=== PATIENT | female | born 1950 | race African-American/Black ===

== ENCOUNTER 2020-08-11 20:29 | Inpatient (IN) | payer MEDICARE, MEDICAID, SELFPAY ==
[2020-08-11] VITALS (14 sets, daily range): BP systolic 92–123; BP diastolic 55–71; PULSE 90–95; RESP 11–20; TEMP 37.1; O2SAT 95–100
--- NOTE | ~2020-08-11 | CT_ITS ---
EXAMINATION: CT brain wo con EXAM DATE: 08/11/2020 21:27 INDICATION: Altered mental status. Fever. TECHNIQUE: Spiral CT of the head was performed without contrast. Axial, coronal and sagittal images were reviewed. The dose-length product (DLP) for this examination was 605.33 mGy-cm. The exposure w as tailored according to patient size, and iterative reconstruction (ASIR) was used as additional dos e reduction technique. There is no prior study for comparison. FINDINGS: There is subcentimeter right parieto-occipital infarction, age indeterminate. Mild to moder ate microangiopathy and cerebral atrophy. No obstructive hydrocephalus or extra-axial collections. No evidence of brain mass. Posterior fossa unremarkable. Left-sided cataract surgery. Moderate amount o f left sphenoid opacity, mild in the ethmoid sinuses. IMPRESSION: 1. Small age-indeterminate left parieto-occipital lobe infarction. 2. Microangiopathy and cerebral atrophy. 3. Sphenoid and ethmoid sinus opacity. Reviewed, dictated and finalized at location A. EDITOR
--- NOTE | ~2020-08-11 | XR_ITS ---
EXAMINATION: XR chest 1V portable DATE: 08/22/2020 05:40 INDICATION: Pneumonia. TECHNIQUE: A single frontal view of the chest was obtained. COMPARISON: Chest single view 08/11/2020, CT abdomen and pelvis 08/11/2020 FINDINGS: There is a diffuse interstitial pattern in the lungs. There are airspace opacities in the l ower lung zones. No pleural effusion or pneumothorax. Cardiomegaly is noted. IMPRESSION: 1. Worsened diffuse lung disease, consistent with pulmonary edema versus pneumonia. 2. Cardiomegaly. Reviewed, dictated and finalized at location A. AL MEASUREMENTS TEACHER IMPRESSION: 1. Worsened diffuse lung disease, consistent with pulmonary edema versus pneumo arthur. 2. Cardiomegaly.
--- NOTE | ~2020-08-11 | XR_ITS ---
XR abdomen/kub 1V DATE: 08/15/2020 12:39 INDICATION: Abdominal distention TECHNIQUE: Portable supine AP view on August 15, 2020 at 1234 hours COMPARISON: August 11, 2020 CT abdomen pelvis FINDINGS: Gastrostomy tube overlies the mid upper abdomen. Nonspecific bowel gas pattern without evidence of obstruction. The psoas shadows are intact. No visceromegaly is evident. Included skeletal structures are unremarkable. IMPRESSION: Gastrostomy tube Nonspecific abdomen Reviewed, dictated and finalized at Location A. Reviewed, dictated and finalized at location A. S ENGINEER
--- NOTE | ~2020-08-11 | US_ITS ---
EXAMINATION: US renal BI DATE: 08/23/2020 10:21 INDICATION: Segment in urine. TECHNIQUE: Multiple ultrasound grayscale images of the kidneys were obtained. COMPARISON: None. FINDINGS: The right kidney measures 12.8 x 5.2 cm. The left kidney measures 10.0 x 5.4 x 5.2 cm. The kidneys de monstrate normal parenchymal echogenicity. There is mild right hydronephrosis. The bladder is decompr essed by a Dorman catheter. There are low level echoes in the urine in the bladder correlating with th e abnormal urinalysis. IMPRESSION: 1. Mild right hydronephrosis. 2. Low level echoes in the urine in the bladder correlating with the abnormal urinalysis. Reviewed, dictated and finalized at location A. STARTER IMPRESSION: 1. Mild right hydronephrosis. 2. Low level echoes in the urine in the bladder correlating with the abnormal u rinalysis.
--- NOTE | ~2020-08-11 | XR_ITS ---
EXAMINATION: XR chest 1V EXAM DATE: 08/11/2020 21:36 INDICATION: Transient alteration of awareness. TECHNIQUE: Portable AP frontal chest x-ray was obtained. There is no prior study for comparison. FINDINGS: Rather extensive left lower lobe airspace disease which is ill-defined, small amount of rig ht basilar airspace disease. Could be pneumonia, COVID 19, edema. Please clinically correlate. Mild c ardiomegaly. No pneumothorax pleural effusion. There is aortic arteriosclerosis. There are bony degenerative candelaria es. IMPRESSION: Bibasilar, left greater than right infection or edema. Reviewed, dictated and finalized at location A. R MAN
--- NOTE | ~2020-08-11 | US_ITS ---
EXAMINATION: US right upper quadrant EXAM DATE: 08/23/2020 10:22 INDICATION: Elevated liver function tests. TECHNIQUE: Multiple grayscale and Doppler images of the abdomen right upper quadrant were obtained (b y a technologist who performed the scan) and subsequently reviewed. Correlation is made to CT abdomen 08/11/2020. FINDINGS: The pancreatic head and body are normal in appearance. The pancreatic tail is not visualized. The l iver has normal echogenicity and contour. There are no focal liver lesions identified. There is no evidence of intrahepatic biliary duct dilation. Portal venous flow was seen in the hepatopedal, nor mal direction and has normal Doppler waveform. No right-sided hydronephrosis. Common bile duct measures 4 mm, which is normal. Gallbladder wall is mildly thickened at 3.4 mm, coe alexander gallbladder is only minimally distended, could be due to under distention. No cholelithiasis, per icholecystic fluid. IMPRESSION: 1. Mild gallbladder wall thickening most likely from underdistention. 2. Unremarkable liver. Reviewed, dictated and finalized at location A. ENT SEWING MACHINE OPERATOR
--- NOTE | ~2020-08-11 | CT_ITS ---
EXAMINATION: CT abdomen pelvis w con EXAM DATE: 08/11/2020 22:46 INDICATION: Abdominal pain. Elevated liver enzymes. TECHNIQUE: Spiral CT of the abdomen and pelvis was performed following intravenous injection of 100 m L Omnipaque 350. Axial, coronal and sagittal images were reviewed. The dose-length product (DLP) fo r this examination was 768.71 mGy-cm. The exposure was tailored according to patient size (auto mA e xposure control), and iterative reconstruction (ASIR) was used as additional dose reduction technique . There is no prior study for comparison. FINDINGS: Patchy bibasilar airspace disease, consistent with pneumonia. There is cardiomegaly. The l iver, spleen, adrenal glands and pancreas are unremarkable. Gallbladder is unremarkable. No biliary obstruction. Portal and splenic veins are patent. Kidneys enhance symmetrically. There is no hydr onephrosis. The uterus is unremarkable. There is a Dorman catheter in the bladder. There is diffus e bladder wall thickening with adjacent fat stranding, gas in the bladder. Cystitis, probably acute. There is no retroperitoneal or pelvic lymphadenopathy. There is moderate scattered arterioscleroti c disease. The appendix is normal. There is a gastrostomy tube. Large amount of liquid colonic stool and gas, correlate for diarrhea. No free intraperitoneal gas. There is deep sacral decubitus ulcer, sacrum appears to be exposed at the ulceration site, but no oss eous erosion is identified. Mild lumbar levoscoliosis. There are no osteoblastic or osteolytic lesion s identified. Generalized body wall fat stranding. IMPRESSION: 1. Moderate amount of bibasilar multifocal pneumonia. 2. Large amount of colonic diarrhea and gas. 3. Cystitis, probably acute. 4. Large sacral decubitus ulcer. Reviewed, dictated and finalized at location A. ER SUPERVISOR
--- NOTE | ~2020-08-11 | XR_ITS ---
EXAMINATION: XR abdomen obstructive series EXAM DATE: 08/22/2020 13:27 INDICATION: Abdominal pain. TECHNIQUE: Frontal projection(s) of the abdomen for interpretation. Comparison is made to prior exami nation from 08/15/2019. Correlation was made with CT abdomen 08/11/2020. FINDINGS: There is a gastrostomy tube. Moderate to large amount of colonic stool and gas. No dilated small bowel. Patchy ill-defined left basilar airspace disease, patient had multifocal pneumonia, cor relating with prior CT. No small bowel dilation. There is no organomegaly. There are mild bony degene rative changes. IMPRESSION: 1. Moderate to large amount of colonic stool and gas. 2. Left basilar predominant airspace disease probably pneumonia. Reviewed, dictated and finalized at location A. TRONIC HEALTH RECORDS SPECIALIST
--- NOTE | 2020-08-11 20:44 | ECG_ITS ---
Measurements Intervals [place] Rate: 92 P: 61 IN: 134 QRS: -45 QRSD: 103 T: 76 QT: 377 QTc: 467 Interpretive Statements SINUS RHYTHM LEFT ANTERIOR FASCICULAR BLOCK BASELINE WANDER- I, II, III, AVL, AVF ABNORMAL ECG Electronically Signed On 08-12-2020 7:57:35 MERCHANDISE PICKUP/RECEIVING ASSOCIATE by Misael Vernon D.O.
[2020-08-11 21:06] LABS: Alveolar/Arterial O2 Gradient 254.7 mmHg; Base Excess ABG 0.2 mEq/l (+/-2.0); Device NASAL CANNULA; Fractional Inspired Oxygen 53 %; HCO3 ABG 25.7 mEq/l (22.0-26.0); Oxygen Content ABG 11.5 %vol (16.0-22.0); Oxyhemoglobin 91.1 % THb (90.0-100.0); PCO2 ABG 45.7 mmHg (35.0-45.0); PO2 ABG 72.1 mmHg (80.0-100.0); PO2 FiO2 Ratio Arterial Blood 1.36 %; Site Drawn RIGHT BRACHIAL; Total Hemoglobin 8.9 g/dL (12.0-18.0); pH ABG 7.368 (7.350-7.450)
[2020-08-11 21:10] LABS: Basophils Percent Auto 0.1 % (0.2-1.2); Hematocrit 31.1 % (37.0-47.0); Hemoglobin 8.4 g/dL (12.0-15.0); Lymphocytes Absolute Auto 3.16 K/mm3 (0.9-3.2); Lymphocytes Percent Auto 21.5 % (18.3-44.2); Mean Corpuscular Hemoglobin 25.5 pg (26-34); Mean Corpuscular Volume 94.2 fl (80-100); Mean Platelet Volume 11.4 fl (7.4-10.4); Monocytes Absolute Auto 1.5 K/mm3 (0.1-0.6); Monocytes Percent Auto 9.9 % (2.6-8.5); Neutrophils Absolute Auto 9.8 K/mm3 (1.3-6.7); Neutrophils Percent Auto 66.5 % (45.5-73.1); Nucleated Red Blood Cells Absolute Auto 0.1 K/mm3 (0.0-0.012); Nucleated Red Blood Cells Perc 0.5 % (0.0-0.2); Platelet Count Result 379 k/mm3 (150-375); Red Cell Distribution Width 21.7 % (11.5-14.5); White Blood Count 14.7 K/mm3 (4.5-10.0)
[2020-08-11] MEDS: SODIUM CHLORIDE 0.9% IV 1,000 ML 999 ML IV CONT ×2 (21:17→22:11)
[2020-08-11 21:19] LABS: INR 1.5; Prothrombin Time 18.4 Seconds (11.1-14.7)
[2020-08-11 21:20] LABS: Partial Thromboplastin Time 27.2 SECONDS (22.3-36.8)
[2020-08-11 21:28] LABS: Alanine Aminotransferase 292 U/L (4-35); Alkaline Phosphatase 402 U/L (38-126); Anion Gap 2 mmol/L (8-16); Aspartate Amino Transferase 527 U/L (14-36); Bilirubin,Total 0.5 mg/dL (0.2-1.3); Blood Urea Nitrogen 75 mg/dL (7-17); CRP 4.5 mg/dL (<1.0); Calcium 8.4 mg/dL (8.4-10.2); Carbon Dioxide 33 mmol/L (22-30); Chloride 117 mmol/L (98-107); Estimated Glomerular Filt Rate 45; Lipase 167 U/L (23-300); Potassium 5.1 mmol/L (3.4-5.0); Sodium 152 mmol/L (137-145)
[2020-08-11 21:29] LABS: Anisocytosis 2+ (NORMAL); Hypochromasia 1+ (NORMAL)
[2020-08-11 21:33] LABS: Troponin I 0.016 ng/mL (0.000-0.034)
[2020-08-11 21:34] LABS: Glucose 876 mg/dL (65-105)
[2020-08-11 22:09] LABS: Add Urine Microscopic? YES; Appearance Urine Turbid (Clear); Bacteria Urine 1+ /hpf; Bilirubin Urine Negative (Negative); Blood Urine 2+ (Negative); Color Urine Yellow (Yellow); Glucose Urine UA 3+ mg/dL (Negative); Ketones Urine Negative (Negative); Leukocyte Esterase Ur 3+ LEU/UL (Negative); Nitrate Urine Negative (Negative); Protein Urine 2+ mg/dL (Negative); RBC Urine >75 /hpf (0-2); Specific Grav Ur 1.022 (1.001-1.035); Urobilinogen Urine Negative mg/dL (<2.0); WBC Urine >75 /hpf
[2020-08-11 22:23] LABS: Lactic Acid Reflex 1.2 mmol/L (0.7-2.1)
[2020-08-11 22:28] LABS: Beta-Hydroxybutyrate/Acetoacetate 0.27 mmol/L (0.02-0.27)
--- NOTE | 2020-08-11 23:08 | PC.NURSE ---
Assumed care of patient at this time. Report received from FRED Seals.
[2020-08-11 23:54] LABS: Glucose Point of Care > 500 (65-105)
--- NOTE | 2020-08-11 23:55 | PC.NURSE ---
Bedside glucose is 595. ERP notified.
[2020-08-12] VITALS (46 sets, daily range): BP systolic 93–121; BP diastolic 51–84; PULSE 76–118; RESP 12–21; TEMP 36.1–37.1; O2SAT 93–100; BMI 25.3
[2020-08-12] MEDS: SODIUM CHLORIDE 0.9% IV 1,000 ML 999 ML IV CONT ×2 (00:05)
[2020-08-12] MEDS: INSULIN HUMAN REGULAR (*BKC) 100 UNITS in SODIUM CHLORIDE 0.9% IV 99 ML 10.7 UNITS IV CONT (00:25)
--- NOTE | 2020-08-12 00:34 | ED.GENADULT ---
HPI - General Adult General Chief complaint: Altered Mental Status Stated complaint: Unspecified Time Seen by Provider: 08/11/20 20:31 History of Present Illness HPI narrative: Patient is a 69-year-old female who presents the emergency department with chief complaint of altered mental status. Patient is from a local nursing facility they noticed this evening that she was less active than normal and not communicating. The patient was brought in by EMS and was she initially short of breath and required supplemental oxygen Related Data Home Medications Medication Instructions Recorded Confirmed Tylenol 325 - 650 mg PO Q4-6H PRN 08/11/20 amlodipine [Norvasc] 5 mg PO DAILY 08/11/20 ascorbic acid (vitamin C) 1 cap PO DAILY 08/11/20 aspirin [Aspir-81] 81 mg PO DAILY 08/11/20 bisacodyl 10 mg RECTAL DAILY PRN 08/11/20 clopidogrel [Plavix] 75 mg PO DAILY 08/11/20 collagenase clostridium histo. 1 applic TOPICAL DAILY 08/11/20 [Santyl] hydrocodone-acetaminophen [Vicodin] 08/11/20 insulin glargine [Lantus Solostar 8 unit SUBCUT DAILY 08/11/20 U-100 Insulin] insulin lispro 08/11/20 metoprolol tartrate [Lopressor] 25 mg PO BID 08/11/20 pantoprazole [Protonix] 40 mg PO DAILY 08/11/20 polyethylene glycol 3350 [Miralax] 17 g PO DAILY 08/11/20 potassium chloride 20 meq PO DAILY 08/11/20 rosuvastatin 40 mg PO DAILY 08/11/20 sennosides [Senokot] 8.6 mg PO BID 08/11/20 simethicone [Simethicone-80] 80 mg PO DAILY 08/11/20 08/11/20 tizanidine 2 mg PO DAILY PRN 08/11/20 08/11/20 Allergies Allergy/AdvReac Type Severity Reaction Status Date / Time Penicillins AdvReac Nausea and Verified 08/11/20 21:04 Vomiting PMFSH Comments Patient has a PEG tube has history of hospital discharge and pressure ulcers diabetes hyperlipidemia depression hemiplegia Social history the [facility] is [facility] at a [facility] Exam Narrative: Exam Narrative: GENERAL: Ill-appearing opens eyes to spontaneous noncommunicative. HEAD: Normocephalic, atraumatic. EYES: PERRLA and EOMI. ENT: Nares clear, no rhinorrhea or epistaxis. Mucous membranes moist. NECK: Supple. CHEST: Clear to auscultation. No respiratory distress. HEART: Regular rate and rhythm. No murmur heard. Normal peripheral pulses. ABDOMEN: Soft, nontender, nondistended, normal active bowel sounds. There is a large decubitus ulcer that is necrotic in the sacral area EXTREMITIES: Normal range of motion. No edema. SKIN: Warm, dry, no rash. NEURO: No focal deficits. Alert opens eyes but not speaking. PSYCH: Unable to obtain Course Vital Signs Vital signs: Vital Signs Temperature 37.1 C 08/11/20 20:31 Pulse Rate 94 08/11/20 20:31 Respiratory Rate 20 08/11/20 20:31 Blood Pressure 123/71 08/11/20 20:31 Pulse Oximetry 100 08/11/20 20:31 Temperature 37.1 C 08/11/20 20:31 Pulse Rate 92 08/12/20 00:01 Respiratory Rate 12 08/12/20 00:00 Blood Pressure 101/62 08/12/20 00:01 Pulse Oximetry 96 08/12/20 00:01 Medical Decision Making Vital Signs Vital Signs: Vital Signs Temperature 37.1 C 08/11/20 20:31 Pulse Rate 94 08/11/20 20:31 Respiratory Rate 20 08/11/20 20:31 Blood Pressure 123/71 08/11/20 20:31 Pulse Oximetry 100 08/11/20 20:31 Temperature 37.1 C 08/11/20 20:31 Pulse Rate 92 08/12/20 00:01 Respiratory Rate 12 08/12/20 00:00 Blood Pressure 101/62 08/12/20 00:01 Pulse Oximetry 96 08/12/20 00:01 Lab Data Result diagrams: 08/11/20 21:00 08/11/20 21:00 Labs: Lab Results 08/11/20 08/11/20 08/11/20 Range/Units 21:00 21:00 21:00 WBC 14.7 H (4.5-10.0) K/mm3 RBC 3.30 L (4.2-5.4) M/mm3 Hgb 8.4 L (12.0-15.0) g/dL Hct 31.1 L (37.0-47.0) % MCV 94.2 (80-100) fl MCH 25.5 L (26-34) pg MCHC 27.0 L (32-36) g/dl RDW 21.7 H (11.5-14.5) % Plt Count 379 H (150-375) k/mm3 MPV 11.4 H (7.4-10.4) fl Immature Gran % (Auto) 2
[2020-08-12 01:18] LABS: Glucose Point of Care > 500 (65-105)
[2020-08-12 02:32] LABS: Glucose Point of Care > 500 (65-105)
[2020-08-12 03:21] LABS: Glucose Point of Care > 500 (65-105)
--- NOTE | 2020-08-12 03:50 | ADMGEN ---
This patient, Tara Marcano, was admitted to Intensive Care Unit-11. Patient/family oriented to hospital policies and general routines including ID bracelet, bed and alarms, visiting hours, pain management, procedures, bathroom and other care routines, personal items, smoking policy, room service/diet, and visiting hours. Information on how to activate the Rapid Response Team has been discussed. Patient/Family are encouraged to report perceived risks to care and to ask questions if they do not understand what they are told or what they should do.
[2020-08-12] MEDS: SODIUM CHLORIDE 0.9% IV 1,000 ML 125 ML IV CONT (04:21)
[2020-08-12 04:42] LABS: Glucose Point of Care 493 (65-105)
--- NOTE | 2020-08-12 04:48 | PM.IMHP ---
H&P: HPI History of Present Illness Date/Time: 08/12/20 04:48 Chief Complaint: Altered mental status, low oxygen saturation Narrative: Tara Marcano is a 69 year old female with a past medical history of hypertension, CVA with expressive aphasia and dysphagia, insulin-dependent diabetes mellitus and chronic sacral decubitus ulcer who presented to the ER via EMS from [facility] due to altered mental status. The patient is reportedly alert orient x3. At the time of my evaluation the patient is alert follows commands and answers questions with head nods and will state her name. Her history is limited as she has chronic expressive aphasia. The patient evidently usually goes tube [facility]. The patient was diaphoretic unresponsive and tachycardic when EMS arrived to the [facility]. She had a Dorman catheter that was placed at the [facility] that contained thick milk colored sediment. The patient was satting 85% on room air when EMS arrived at the facility. A blood glucose reading obtained in route was reading as high. When asked if she is having pain the patient shakes her head no. She does report shortness of breath but is unable to provide details. She denies any cough. She denies any fevers or chills. She denies having any abdominal pain. She does have a G-tube in place and receives bolus feeds at the [facility]. She denies any dysuria. She does have a chronic stage IV sacral decubitus ulcer that has a foul smell. The patient had had COVID-19 in June 2020. Patient is not on oxygen at the [facility]. She was hypoxic in the field but has not had any hypoxia since arriving to the hospital. She is on 4 L nasal cannula currently. Review of Systems Review of Systems: ROS unobtainable: Yes unobtainable due to medical condition (Expressive aphasia due to stroke) [facility] Past Medical History Medical History (Updated 08/12/20 @ 08:55 by aLyne Gallego DO) Cancer of left breast Chronic constipation With fecal impaction in July 2020 at [facility] Chronic indwelling Dorman catheter Since January of 2020 due to chronic urinary retention with hydronephrosis Coronary artery disease CVA (cerebral vascular accident) 2010 and in 2015 with chronic left hemiparesis, dysphagia and expressive aphasia Depression Diabetic peripheral neuropathy Essential hypertension Hyperlipidemia Infection with multi-drug resistant microorganisms UTI Kidney stones Pneumonia due to COVID-19 virus July 10, 2020 Sacral decubitus ulcer, stage IV Type 2 diabetes mellitus Vitamin D deficiency Surgical History Surgical History (Updated 08/12/20 @ 05:50 by Layne Gallego DO) Gastrostomy tube in place History of left mastectomy 2010 History of partial thyroidectomy 1993 S/P ureteral stent placement January 2020 right sided Status post abdominal aortic aneurysm repair Family History Family History Other Unknown family medical history Social History Social History (Updated 08/12/20 @ 05:52 by Layne Gallego DO) Social History: The patient resides at [facility]. She had 4 children. Code status: Full code (state form on the chart) Smoking status: Unknown if ever smoked Alcohol intake: unknown Substance use: unknown Spiritual care concerns: No Meds Home Medications and Allergies Home Medications Medication Instructions Recorded Confirmed Type amlodipine [Norvasc] 5 mg FEEDING TUBE DAILY 08/11/20 08/12/20 History aspirin [Aspir-81] 81 mg FEEDING TUBE DAILY 08/11/20 08/12/20 History bisacodyl 10 mg RECTAL DAILY PRN 08/11/20 08/12/20 History clopidogrel [Plavix] 75 mg FEEDING TUBE DAILY 08/11/20 08/12/20 History collagenase clostridium histo. 1 applic TOPICAL DAILY 08/11/20 08/12/20 History [Santyl] insulin glargine [Lantus Solostar 8 unit SUBCUT HS 08/11/20 08/12/20 History
[2020-08-12 05:30] LABS: Glucose Point of Care 408 (65-105)
[2020-08-12 06:53] LABS: Hematocrit 26.6 % (37.0-47.0); Hemoglobin 7.2 g/dL (12.0-15.0); Mean Corpuscular HGB Conc 27.1 g/dl (32-36); Mean Corpuscular Hemoglobin 25.1 pg (26-34); Mean Corpuscular Volume 92.7 fl (80-100); Platelet Count Result 308 k/mm3 (150-375); Red Blood Count 2.87 M/mm3 (4.2-5.4); Red Cell Distribution Width 20.6 % (11.5-14.5); White Blood Count 12.1 K/mm3 (4.5-10.0)
[2020-08-12 07:06] LABS: INR 1.6; Prothrombin Time 19.4 Seconds (11.1-14.7)
[2020-08-12 07:11] LABS: Alanine Aminotransferase 230 U/L (4-35); Albumin Level 2.5 g/dL (3.5-5.1); Alkaline Phosphatase 284 U/L (38-126); Anion Gap 3 mmol/L (8-16); Aspartate Amino Transferase 276 U/L (14-36); Bilirubin,Total 0.1 mg/dL (0.2-1.3); Blood Urea Nitrogen 57 mg/dL (7-17); Calcium 7.5 mg/dL (8.4-10.2); Carbon Dioxide 29 mmol/L (22-30); Chloride 126 mmol/L (98-107); Estimated CRCL calculation 41 ml/min; Estimated Glomerular Filt Rate 60; Glucose 432 mg/dL (65-105); Potassium 3.2 mmol/L (3.4-5.0); Sodium 158 mmol/L (137-145)
[2020-08-12 07:12] LABS: Magnesium 2.6 mg/dL (1.6-2.3); Phosphorus 2.6 mg/dL (2.5-4.5)
[2020-08-12] MEDS: INSULIN HUMAN REGULAR (*BKC) 100 UNITS in SODIUM CHLORIDE 0.9% IV 99 ML 12.8 UNITS IV CONT (08:50)
[2020-08-12 08:54] LABS: Glucose Point of Care 370 (65-105)
[2020-08-12 08:54] LABS: Glucose Point of Care 274 (65-105)
[2020-08-12 09:41] LABS: Hemoglobin A1C 8.3 % (<5.7)
[2020-08-12] MEDS: INSULIN GLARGINE (*BKC) 100 UNITS/ML 12 UNITS SUB-Q (11:04)
[2020-08-12] MEDS: guaiFENesin 200 MG/10 ML UDC FEED TUBE ×2 (11:06→17:51)
[2020-08-12] MEDS: SIMETHICONE 80 MG TAB.CHEW FEED TUBE ×2 (11:06→17:51)
[2020-08-12] MEDS: ASPIRIN 81 MG CHEWABLE TABLET XX (11:06)
[2020-08-12] MEDS: MAGNESIUM OXIDE 400 MG TABLET FEED TUBE ×2 (11:06→17:51)
[2020-08-12] MEDS: CLOPIDOGREL BISULFATE 75 MG TABLET FEED TUBE (11:06)
[2020-08-12] MEDS: METOPROLOL TARTRATE 25 MG TABLET FEED TUBE ×2 (11:06→20:33)
[2020-08-12] MEDS: FAMOTIDINE 20 MG TABLET FEED TUBE ×2 (11:07→20:33)
[2020-08-12] MEDS: ROSUVASTATIN 10 MG TABLET 40 MG FEED TUBE (11:07)
[2020-08-12] MEDS: COLLAGENASE OINT 30 GM TUBE 1 APPLIC TOPICAL (11:07)
[2020-08-12] MEDS: SENNOSIDES 8.6 MG TABLET FEED TUBE ×2 (11:08→17:51)
[2020-08-12] MEDS: SODIUM CHLORIDE 0.45% 1,000 ML 100 ML IV CONT ×2 (11:08→20:32)
[2020-08-12] MEDS: ASCORBIC ACID 500 MG TABLET 1000 MG FEED TUBE (11:08)
--- NOTE | 2020-08-12 13:43 | WPDCNINT ---
Assessment and Plan Assessment and plan (1) Acute respiratory failure with hypoxia: Code(s): J96.01 - Acute respiratory failure with hypoxia Status: Acute Assessment and Plan: The patient is currently on 4 L nasal cannula and does not appear to be in respiratory distress. (2) Pneumonia: Qualifiers: Laterality: unspecified laterality Lung location: unspecified part of lung Pneumonia type: due to unspecified organism Qualified Code(s): J18.9 - Pneumonia, unspecified organism Code(s): J18.9 - Pneumonia, unspecified organism Status: Acute Assessment and Plan: Agree with current antibiotic regimen which include cefepime, levofloxacin and vancomycin with pharmacy to dose. The distribution of the pneumonia is very highly suspicious for aspiration. Hence she should get a swallow evaluation prior to any oral intake and should remain NPO and in the meantime (3) Hyperglycemia: Code(s): R73.9 - Hyperglycemia, unspecified Status: Acute Assessment and Plan: will restart her home Lantus with slightly higher dose of 12 units subcu daily and turn off insulin drip 2 hours later. We will continue to monitor blood sugars and start high-dose sliding scale insulin q.6 hours with no rapid. (4) Sepsis: Qualifiers: Sepsis acute organ dysfunction status: unspecified Sepsis type: sepsis due to unspecified organism Qualified Code(s): A41.9 - Sepsis, unspecified organism Code(s): A41.9 - Sepsis, unspecified organism Status: Acute Assessment and Plan: Multiple potential sources including pneumonia, UTI and stage IV decubitus ulcers. Urine and blood cultures are currently pending. (5) Type 2 diabetes mellitus with hyperosmolar hyperglycemic state (HHS): Code(s): E11.00 - Type 2 diabetes mellitus with hyperosmolarity without nonketotic hyperglycemic-hyperosmolar coma (NKHHC); E11.65 - Type 2 diabetes mellitus with hyperglycemia Status: Acute (6) Transaminitis: Code(s): R74.01 - Elevation of levels of liver transaminase levels Status: Acute Assessment and Plan: Continue to monitor with daily CMPs (7) Decubitus ulcer of sacral area: Qualifiers: Pressure injury stage: unstageable Qualified Code(s): L89.150 - Pressure ulcer of sacral region, unstageable Code(s): L89.159 - Pressure ulcer of sacral region, unspecified stage Status: Acute (8) Acute kidney injury: Code(s): N17.9 - Acute kidney failure, unspecified Status: Acute Assessment and Plan: likely due to dehydration from sepsis. IVF with 1/2 NS at 100 cc /hr, add dextrose once glucose is better controlled. (9) Hypernatremia: Code(s): E87.0 - Hyperosmolality and hypernatremia Status: Acute Assessment and Plan: Likely due to free water deficit and crystalloid fluid resuscitation. I switch her IV fluids to half normal saline at 100 cc an hour will add dextrose once blood sugars are better controlled. We will also start free water flushes through her PEG tube at 200 cc q.4 hours and continue to monitor her basic metabolic profile every 4 hours. Additional Plan Code status: Full code Critical care time spent:33 minutes Due to a high probability of clinically significant, life threatening deterioration, the patient required my highest level of preparedness to intervene emergently and I personally spent this critical care time directly and personally managing the patient. This critical care time included obtaining a history; examining the patient; pulse oximetry; ordering and review of studies; arranging urgent treatment with development of a management plan; evaluation of patient's response to treatment; frequent reassessment; and discussions with other providers. It was exclusive of separately billable procedures and treating other patients and teaching time. Please see Assessment and Plan section and the r
[2020-08-12 14:37] LABS: Anion Gap 5 mmol/L (8-16); Blood Urea Nitrogen 52 mg/dL (7-17); Calcium 7.8 mg/dL (8.4-10.2); Carbon Dioxide 26 mmol/L (22-30); Chloride 126 mmol/L (98-107); Estimated CRCL calculation 45 ml/min; Estimated Glomerular Filt Rate > 60; Glucose 125 mg/dL (65-105); Potassium 4.2 mmol/L (3.4-5.0); Sodium 157 mmol/L (137-145)
[2020-08-12 17:58] LABS: Anion Gap 5 mmol/L (8-16); Blood Urea Nitrogen 53 mg/dL (7-17); Calcium 8.2 mg/dL (8.4-10.2); Carbon Dioxide 25 mmol/L (22-30); Chloride 126 mmol/L (98-107); Estimated CRCL calculation 50 ml/min; Estimated Glomerular Filt Rate > 60; Glucose 137 mg/dL (65-105); Potassium 4.6 mmol/L (3.4-5.0); Sodium 156 mmol/L (137-145)
[2020-08-12 18:17] LABS: Glucose Point of Care 141 (65-105)
[2020-08-12 18:17] LABS: Glucose Point of Care 195 (65-105)
[2020-08-12 18:17] LABS: Glucose Point of Care 272 (65-105)
[2020-08-12 18:17] LABS: Glucose Point of Care 229 (65-105)
[2020-08-12 20:08] LABS: Anion Gap 4 mmol/L (8-16); Blood Urea Nitrogen 52 mg/dL (7-17); Calcium 8.3 mg/dL (8.4-10.2); Carbon Dioxide 25 mmol/L (22-30); Chloride 125 mmol/L (98-107); Estimated CRCL calculation 50 ml/min; Estimated Glomerular Filt Rate > 60; Glucose 164 mg/dL (65-105); Potassium 4.5 mmol/L (3.4-5.0); Sodium 154 mmol/L (137-145)
[2020-08-12] MEDS: SERTRALINE HCL 50 MG TABLET 100 MG FEED TUBE (20:33)
[2020-08-13] VITALS (12 sets, daily range): BP systolic 103–127; BP diastolic 58–84; PULSE 72–93; RESP 11–22; TEMP 36.3–36.9; O2SAT 94–99
[2020-08-13] MEDS: guaiFENesin 200 MG/10 ML UDC FEED TUBE ×5 (00:14→23:34)
[2020-08-13 00:25] LABS: Glucose Point of Care 162 (65-105)
[2020-08-13 01:04] LABS: Anion Gap 3 mmol/L (8-16); Blood Urea Nitrogen 49 mg/dL (7-17); Calcium 8.2 mg/dL (8.4-10.2); Carbon Dioxide 25 mmol/L (22-30); Chloride 124 mmol/L (98-107); Estimated CRCL calculation 50 ml/min; Estimated Glomerular Filt Rate > 60; Glucose 169 mg/dL (65-105); Potassium 4.2 mmol/L (3.4-5.0); Sodium 152 mmol/L (137-145)
[2020-08-13 06:54] LABS: Basophils Percent Auto 0.2 % (0.2-1.2); Eosinophils Percent Auto 0.3 % (0-4.4); Hematocrit 27.3 % (37.0-47.0); Hemoglobin 7.4 g/dL (12.0-15.0); Immature Granulocyte Absolute 0.19 K/mm3 (0.00-0.031); Immature Granulocyte Percent A 1.8 % (0-0.5); Lymphocytes Absolute Auto 2.08 K/mm3 (0.9-3.2); Lymphocytes Percent Auto 19.3 % (18.3-44.2); Mean Corpuscular HGB Conc 27.1 g/dl (32-36); Mean Corpuscular Volume 92.2 fl (80-100); Mean Platelet Volume 10.9 fl (7.4-10.4); Monocytes Percent Auto 9.3 % (2.6-8.5); Neutrophils Absolute Auto 7.5 K/mm3 (1.3-6.7); Neutrophils Percent Auto 69.1 % (45.5-73.1); Nucleated Red Blood Cells Absolute Auto 0.1 K/mm3 (0.0-0.012); Nucleated Red Blood Cells Perc 0.7 % (0.0-0.2); Platelet Count Result 278 k/mm3 (150-375); Red Blood Count 2.96 M/mm3 (4.2-5.4); Red Cell Distribution Width 20.8 % (11.5-14.5); White Blood Count 10.8 K/mm3 (4.5-10.0)
[2020-08-13 07:08] LABS: Glucose Point of Care 172 (65-105)
[2020-08-13 07:09] LABS: Alanine Aminotransferase 147 U/L (4-35); Albumin Level 2.6 g/dL (3.5-5.1); Alkaline Phosphatase 157 U/L (38-126); Anion Gap 5 mmol/L (8-16); Aspartate Amino Transferase 78 U/L (14-36); Bilirubin,Total 0.2 mg/dL (0.2-1.3); Blood Urea Nitrogen 46 mg/dL (7-17); Calcium 8.2 mg/dL (8.4-10.2); Carbon Dioxide 23 mmol/L (22-30); Chloride 122 mmol/L (98-107); Estimated CRCL calculation 50 ml/min; Estimated Glomerular Filt Rate > 60; Glucose 195 mg/dL (65-105); Potassium 4.3 mmol/L (3.4-5.0); Sodium 150 mmol/L (137-145)
[2020-08-13 07:21] LABS: Crenated RBC 1+ (NORMAL); Hypochromasia 2+ (NORMAL); Microcytosis 1+ (NORMAL); Platelet Estimate Adequate (Adequate)
--- NOTE | 2020-08-13 07:55 | PM.IMPN ---
Progress Note: A&P Assessment and Plan (1) Hypernatremia: Code(s): E87.0 - Hyperosmolality and hypernatremia Status: Acute Assessment and Plan: On D5% currently Daily BMP Trending down Apprciate Int/cc note (2) Acute respiratory failure with hypoxia: Code(s): J96.01 - Acute respiratory failure with hypoxia Status: Acute Assessment and Plan: Resolved. (3) Type 2 diabetes mellitus with hyperosmolar hyperglycemic state (HHS): Code(s): E11.00 - Type 2 diabetes mellitus with hyperosmolarity without nonketotic hyperglycemic-hyperosmolar coma (NKHHC); E11.65 - Type 2 diabetes mellitus with hyperglycemia Status: Acute Assessment and Plan: Continue to monitor ISS as needed (4) Altered mental status: Qualifiers: Altered mental status type: unspecified Qualified Code(s): R41.82 - Altered mental status, unspecified Code(s): R41.82 - Altered mental status, unspecified Status: Acute Assessment and Plan: Arousable Supportive care (5) Sepsis: Qualifiers: Sepsis acute organ dysfunction status: unspecified Sepsis type: sepsis due to unspecified organism Qualified Code(s): A41.9 - Sepsis, unspecified organism Code(s): A41.9 - Sepsis, unspecified organism Status: Acute Assessment and Plan: On broad spectrum antibiotics (6) Pneumonia: Qualifiers: Laterality: unspecified laterality Lung location: unspecified part of lung Pneumonia type: due to unspecified organism Qualified Code(s): J18.9 - Pneumonia, unspecified organism Code(s): J18.9 - Pneumonia, unspecified organism Status: Acute Assessment and Plan: Clinically shows some improvement (7) Acute UTI: Code(s): N39.0 - Urinary tract infection, site not specified Status: Acute Assessment and Plan: On broad spectrum antibiotics. (8) Decubitus ulcer of sacral area: Qualifiers: Pressure injury stage: unstageable Qualified Code(s): L89.150 - Pressure ulcer of sacral region, unstageable Code(s): L89.159 - Pressure ulcer of sacral region, unspecified stage Status: Acute Assessment and Plan: Local care. Around the clock turning schedule. (9) Acute kidney injury: Code(s): N17.9 - Acute kidney failure, unspecified Status: Acute Assessment and Plan: Likely to be pre renal azotemia IV fluids Daily BMP (10) Transaminitis: Code(s): R74.01 - Elevation of levels of liver transaminase levels Status: Acute Assessment and Plan: Likely secondary to sepsis Will continue to monitor Subjective Date/time seen: 08/13/20 07:56 Patient was seen and examined on 08/12/20 Late entry note Patient only mumbles Review of Systems Review of Systems: ROS unobtainable: Yes unobtainable due to medical condition Exam Narrative: Exam Narrative: Lying in bed Const: General: no acute distress and ill appearing Nutritional Appearance: average body habitus Orientation/consciousness: patient obtunded HENMT: Head: normal to inspection and normocephalic General nose exam: Normal external nose present Face and sinus: normal facial exam Eyes: Pupils: Equal, round and reactive pupils present EOM: EOMs intact bilaterally Neck: Neck: no lymphadenopathy, supple and no JVD Resp: Auscultation: rales Cardio: Jugular venous distension: no JVD Rate: regular rate Rhythm: regular rhythm GI: Inspection: distended GI Palp: Yes Soft to palpation and Yes No hepatosplenomegaly present Skin: Rashes: no rashes Neuro: General: oriented to person Cranial nerves: Yes Equal, round and reactive pupils present Cognition (Neuro): abnormal cognition Motor exam (neuro): 5/5 motor strength present throughout Extrem: General: no pedal edema Objective Data Vital Signs Vital Signs: Vital Signs - 24 hr 08/12/20 08:00 08/12/20 10:00 08/12/20 10:19 Temperature 97.8 F
[2020-08-13] MEDS: CLOPIDOGREL BISULFATE 75 MG TABLET FEED TUBE (08:07)
[2020-08-13] MEDS: SIMETHICONE 80 MG TAB.CHEW FEED TUBE ×2 (08:07→17:10)
[2020-08-13] MEDS: SENNOSIDES 8.6 MG TABLET FEED TUBE ×2 (08:07→17:09)
[2020-08-13] MEDS: ROSUVASTATIN 10 MG TABLET 40 MG FEED TUBE (08:07)
[2020-08-13] MEDS: METOPROLOL TARTRATE 25 MG TABLET FEED TUBE ×2 (08:07→21:13)
[2020-08-13] MEDS: ASPIRIN 81 MG CHEWABLE TABLET XX (08:07)
[2020-08-13] MEDS: MAGNESIUM OXIDE 400 MG TABLET FEED TUBE ×2 (08:07→17:09)
[2020-08-13] MEDS: FAMOTIDINE 20 MG TABLET FEED TUBE ×2 (08:08→21:13)
[2020-08-13] MEDS: COLLAGENASE OINT 30 GM TUBE 1 APPLIC TOPICAL (08:08)
[2020-08-13] MEDS: DEXTROSE 5% 1,000 ML 1,000 ML 75 ML IV CONT ×2 (09:58→21:11)
[2020-08-13] MEDS: INSULIN GLARGINE (*BKC) 100 UNITS/ML 12 UNITS SUB-Q (09:58)
[2020-08-13] MEDS: INSULIN ASPART (*BKC) 100 UNITS/ML SUB-Q ×3 (11:59→23:38)
[2020-08-13] MEDS: ASCORBIC ACID 500 MG TABLET 1000 MG FEED TUBE (11:59)
[2020-08-13 12:42] LABS: Glucose Point of Care 226 (65-105)
--- NOTE | 2020-08-13 14:02 | WPDINTPN ---
Progress Note: A&P Assessment and Plan (1) Hypernatremia: Code(s): E87.0 - Hyperosmolality and hypernatremia Status: Acute Assessment and Plan: Slowly improving Within the proper time frame for safety. will switch from half-normal saline to D5W at 100 cc an hour. Continue with free water flushes at 200 cc an hour q.4 hours. D5W can likely be discontinued once her sodium has been normalized. (2) Acute respiratory failure with hypoxia: Code(s): J96.01 - Acute respiratory failure with hypoxia Status: Acute (3) Pneumonia: Qualifiers: Laterality: unspecified laterality Lung location: unspecified part of lung Pneumonia type: due to unspecified organism Qualified Code(s): J18.9 - Pneumonia, unspecified organism Code(s): J18.9 - Pneumonia, unspecified organism Status: Acute Assessment and Plan: The patient has bibasilar pneumonia on CT scan. I will discontinue Levaquin cefepime and vancomycin today and switch her to imipenem 500 mg IV q.6 hours. This will cover the aspiration pneumonia as well as the UTI. (4) Acute UTI: Code(s): N39.0 - Urinary tract infection, site not specified Status: Acute Assessment and Plan: E coli which is resistant to fluoroquinolones. Will switch her to imipenem 500 mg IV Q 6 hours for 5 more days. (5) Altered mental status: Qualifiers: Altered mental status type: unspecified Qualified Code(s): R41.82 - Altered mental status, unspecified Code(s): R41.82 - Altered mental status, unspecified Status: Acute (6) Type 2 diabetes mellitus with hyperosmolar hyperglycemic state (HHS): Code(s): E11.00 - Type 2 diabetes mellitus with hyperosmolarity without nonketotic hyperglycemic-hyperosmolar coma (NKHHC); E11.65 - Type 2 diabetes mellitus with hyperglycemia Status: Acute (7) Hyperglycemia: Code(s): R73.9 - Hyperglycemia, unspecified Status: Acute Assessment and Plan: Continue Lantus 12 units subcu q.a.m. plus high-dose sliding scale q.6 hours. Glucerna tube feeds will be started at low dose today with a nutrition is consult to make further changes. (8) Decubitus ulcer of sacral area: Qualifiers: Pressure injury stage: unstageable Qualified Code(s): L89.150 - Pressure ulcer of sacral region, unstageable Code(s): L89.159 - Pressure ulcer of sacral region, unspecified stage Status: Acute Assessment and Plan: Continue wound dressing and wound care per protocol. (9) Acute kidney injury: Code(s): N17.9 - Acute kidney failure, unspecified Status: Acute Assessment and Plan: Resolved. (10) Sepsis: Qualifiers: Sepsis acute organ dysfunction status: unspecified Sepsis type: sepsis due to unspecified organism Qualified Code(s): A41.9 - Sepsis, unspecified organism Code(s): A41.9 - Sepsis, unspecified organism Status: Acute Assessment and Plan: Resolved. (11) Transaminitis: Code(s): R74.01 - Elevation of levels of liver transaminase levels Status: Acute Assessment and Plan: Improving. Additional Plan Code status is full A total of 35 minutes of critical care time was spent. Subjective Date/time seen: 08/13/20 14:02 Interval history: Slowly improving. Hemodynamically stable. Sodium is slowly coming down as is the chloride. Urine culture is showing E coli that is susceptible to cefepime and ceftriaxone but resistant to quinolones. Blood cultures are negative thus far. Review of Systems Review of Systems: All systems reviewed & are unremarkable except as noted in HPI and below Exam Narrative: Exam Narrative: PHYSICAL EXAM: WEIGHT 73.4 kg BMI 25.3 General: Chronically ill-appearing, debilitated HEENT: Nasal cannula in place, pupils are equal and reactive Respiratory: Coarse breath sounds bilaterally, no tachypnea, no increased work of breathi
[2020-08-13 17:24] LABS: Glucose Point of Care 201 (65-105)
--- NOTE | 2020-08-13 18:17 | PC.NURSE ---
This patient, Tara Marcano, was received from [ICU] on 08/13/20 at 1815. Patient/family oriented to unit policies and routines
--- NOTE | 2020-08-13 18:23 | PC.NURSE ---
This patient, Tara Marcano, was transferred to [[facility] 3 wa ] on 08/13/20 at 1824. Personal belongings sent with patient. Report given to [lane no ]. Appropriate documentation sent with patient.
[2020-08-13] MEDS: SERTRALINE HCL 50 MG TABLET 100 MG FEED TUBE (21:13)
[2020-08-13 23:44] LABS: Glucose Point of Care 212 (65-105)
[2020-08-14] VITALS: BP 111/53; PULSE 86; RESP 20; TEMP 36.6; O2SAT 100
[2020-08-14] MEDS: guaiFENesin 200 MG/10 ML UDC FEED TUBE ×3 (05:37→17:55)
[2020-08-14] MEDS: INSULIN ASPART (*BKC) 100 UNITS/ML SUB-Q ×3 (05:41→18:28)
[2020-08-14 05:55] LABS: Glucose Point of Care 229 (65-105)
[2020-08-14 06:00] VITALS: BP 117/48; PULSE 87; RESP 20; TEMP 36.2; O2SAT 94
[2020-08-14 06:31] LABS: Estimated CRCL calculation 55 ml/min; Estimated Glomerular Filt Rate > 60
[2020-08-14 07:08] LABS: Glucose Point of Care > 500 (65-105)
[2020-08-14] MEDS: INSULIN GLARGINE (*BKC) 100 UNITS/ML 12 UNITS SUB-Q (08:11)
[2020-08-14] MEDS: ROSUVASTATIN 10 MG TABLET 40 MG FEED TUBE (08:14)
[2020-08-14] MEDS: ASCORBIC ACID 500 MG TABLET 1000 MG FEED TUBE (08:15)
[2020-08-14] MEDS: MAGNESIUM OXIDE 400 MG TABLET FEED TUBE ×2 (08:15→16:49)
[2020-08-14] MEDS: CLOPIDOGREL BISULFATE 75 MG TABLET FEED TUBE (08:15)
[2020-08-14] MEDS: ASPIRIN 81 MG CHEWABLE TABLET XX (08:15)
[2020-08-14] MEDS: SENNOSIDES 8.6 MG TABLET FEED TUBE ×2 (08:15→16:49)
[2020-08-14] MEDS: FAMOTIDINE 20 MG TABLET FEED TUBE ×2 (08:15→22:16)
[2020-08-14] MEDS: COLLAGENASE OINT 30 GM TUBE 1 APPLIC TOPICAL (08:15)
[2020-08-14] MEDS: SIMETHICONE 80 MG TAB.CHEW FEED TUBE ×2 (08:15→16:49)
[2020-08-14 08:16] VITALS: PULSE 73
[2020-08-14] MEDS: METOPROLOL TARTRATE 25 MG TABLET FEED TUBE ×2 (08:16→22:16)
[2020-08-14] MEDS: amLODIPine BESYLATE 5 MG TABLET FEED TUBE (08:16)
[2020-08-14] MEDS: DEXTROSE 5% 1,000 ML 1,000 ML 75 ML IV CONT (11:31)
[2020-08-14 11:44] VITALS: BMI 27.1
[2020-08-14 11:57] LABS: Glucose Point of Care 242 (65-105)
--- NOTE | 2020-08-14 13:08 | P.CDI_ITS ---
CDI Query Clarification Request -UTI has been documented -Urine culture growing >100,000 E coli -Chronic indwelling gorman catheter has been documented. Please clarify if the UTI is: * Due to/associated with the chronic indwelling catheter * Not due to/associated with the chronic indwelling catheter * Unable to determine
--- NOTE | 2020-08-14 13:08 | WPDCDIQUERY2 ---
CDI Query Clarification Request -UTI has been documented -Urine culture growing >100,000 E coli -Chronic indwelling gorman catheter has been documented. Please clarify if the UTI is: Due to/associated with the chronic indwelling catheter Not due to/associated with the chronic indwelling catheter Unable to determine
[2020-08-14 14:00] VITALS: BP 122/55; PULSE 91; RESP 16; TEMP 36.3; O2SAT 95
[2020-08-14] MEDS: SOD HYPOCHLORITE 1/4 STRENGTH 473 ML 1 APPLIC TOPICAL ×2 (14:31→22:19)
--- NOTE | 2020-08-14 17:59 | PM.IMPN ---
Progress Note: A&P Assessment and Plan (1) Hypernatremia: Code(s): E87.0 - Hyperosmolality and hypernatremia Status: Acute Assessment and Plan: Trending down Daily BMP On D51/2NS Continue to monitor (2) Acute respiratory failure with hypoxia: Code(s): J96.01 - Acute respiratory failure with hypoxia Status: Acute Assessment and Plan: Resolved (3) Type 2 diabetes mellitus with hyperosmolar hyperglycemic state (HHS): Code(s): E11.00 - Type 2 diabetes mellitus with hyperosmolarity without nonketotic hyperglycemic-hyperosmolar coma (NKHHC); E11.65 - Type 2 diabetes mellitus with hyperglycemia Status: Acute Assessment and Plan: ISS as needed Accu checks ACHS (4) Altered mental status: Qualifiers: Altered mental status type: unspecified Qualified Code(s): R41.82 - Altered mental status, unspecified Code(s): R41.82 - Altered mental status, unspecified Status: Acute Assessment and Plan: Improved. Supportive care Likely secondary to electrolyte abnormality (5) Hyperglycemia: Code(s): R73.9 - Hyperglycemia, unspecified Status: Acute Assessment and Plan: ISS as needed (6) Sepsis: Qualifiers: Sepsis acute organ dysfunction status: unspecified Sepsis type: sepsis due to unspecified organism Qualified Code(s): A41.9 - Sepsis, unspecified organism Code(s): A41.9 - Sepsis, unspecified organism Status: Acute Assessment and Plan: Improved on antibiotics. (7) Acute UTI: Code(s): N39.0 - Urinary tract infection, site not specified Status: Acute Assessment and Plan: On antibiotics catheter associated chronic indwelling Dorman cathter. (8) Pneumonia: Qualifiers: Laterality: unspecified laterality Lung location: unspecified part of lung Pneumonia type: due to unspecified organism Qualified Code(s): J18.9 - Pneumonia, unspecified organism Code(s): J18.9 - Pneumonia, unspecified organism Status: Acute Assessment and Plan: Continue antibiotics Improved. Subjective Date/time seen: 08/14/20 17:59 Patient 'states that she is fine Review of Systems Review of Systems: ROS unobtainable: Yes unobtainable due to medical condition Exam Narrative: Exam Narrative: Lying in bed. Const: General: comfortable, no acute distress and ill appearing Nutritional Appearance: average body habitus Orientation/consciousness: oriented to person Limitations: altered mental status HENMT: Head: normocephalic Ears: hearing grossly normal bilaterally Face and sinus: normal facial exam Eyes: Alignment and Position: alignment abnormal Pupils: Equal, round and reactive pupils present EOM: EOMs intact bilaterally Neck: Neck: no lymphadenopathy, supple and no JVD Resp: Effort & Inspection: normal respiratory effort and able to speak in complete sentences Auscultation: clear to auscultation bilaterally Cardio: Jugular venous distension: no JVD Rate: regular rate Rhythm: regular rhythm GI: GI Palp: Yes Soft to palpation and Yes No hepatosplenomegaly present Skin: Wounds: wounds noted (Sacral decubitus.) Neuro: General: CN's II-XI intact bilaterally Cranial nerves: Yes CN's II-XII intact bilaterally and Yes Equal, round and reactive pupils present Cognition (Neuro): abnormal cognition Motor exam (neuro): 5/5 motor strength present throughout Extrem: General: no pedal edema Objective Data Vital Signs Vital Signs: Vital Signs - 24 hr 08/13/20 18:47 08/13/20 20:00 08/13/20 21:13 Temperature 98.0 F 98.4 F Pulse Rate 91 93 82 Respiratory Rate 16 20 Blood Pressure 126/58 L 120/60 Pulse Oximetry 97 94 08/14/20 00:00 08/14/20 06:00 08/14/20 08:16 Temperature 97.9 F 97.1 F L Pulse Rate 86 87 73 Respiratory Rate 20 20 Blood Pressure 111/53 L 117/48 L Pulse Oximetry 100 94 08/14/20 14:00 Temperature 97.4 F L Pulse Rate 91 Respira
[2020-08-14 18:28] LABS: Glucose Point of Care 284 (65-105)
[2020-08-14 19:32] LABS: SARS-CoV-2 RNA PCR Negative
[2020-08-14 22:00] VITALS: BP 119/64; PULSE 92; RESP 18; TEMP 36.8; O2SAT 95
[2020-08-14 22:16] VITALS: PULSE 66
[2020-08-14] MEDS: SERTRALINE HCL 50 MG TABLET 100 MG FEED TUBE (22:17)
[2020-08-15] MEDS: guaiFENesin 200 MG/10 ML UDC FEED TUBE ×4 (00:50→17:47)
[2020-08-15 00:54] LABS: Glucose Point of Care 293 (65-105)
[2020-08-15] MEDS: INSULIN ASPART (*BKC) 100 UNITS/ML SUB-Q ×4 (01:04→18:13)
[2020-08-15] MEDS: DEXTROSE 5% 1,000 ML 1,000 ML 75 ML IV CONT (02:41)
[2020-08-15 06:00] VITALS: BP 124/59; PULSE 89; RESP 20; TEMP 37.2; O2SAT 94
[2020-08-15 06:24] LABS: Glucose Point of Care 292 (65-105)
[2020-08-15 09:38] VITALS: PULSE 93
[2020-08-15] MEDS: MAGNESIUM OXIDE 400 MG TABLET FEED TUBE ×2 (09:38→17:46)
[2020-08-15] MEDS: amLODIPine BESYLATE 5 MG TABLET FEED TUBE (09:38)
[2020-08-15] MEDS: ASPIRIN 81 MG CHEWABLE TABLET XX (09:38)
[2020-08-15] MEDS: METOPROLOL TARTRATE 25 MG TABLET FEED TUBE ×2 (09:38→22:36)
[2020-08-15] MEDS: CLOPIDOGREL BISULFATE 75 MG TABLET FEED TUBE (09:38)
[2020-08-15] MEDS: SIMETHICONE 80 MG TAB.CHEW FEED TUBE ×2 (09:38→17:47)
[2020-08-15] MEDS: ASCORBIC ACID 500 MG TABLET 1000 MG FEED TUBE (09:38)
[2020-08-15] MEDS: SENNOSIDES 8.6 MG TABLET FEED TUBE ×2 (09:39→17:46)
[2020-08-15] MEDS: COLLAGENASE OINT 30 GM TUBE 1 APPLIC TOPICAL (09:39)
[2020-08-15] MEDS: FAMOTIDINE 20 MG TABLET FEED TUBE ×2 (09:39→22:35)
[2020-08-15] MEDS: ROSUVASTATIN 10 MG TABLET 40 MG FEED TUBE (09:40)
[2020-08-15] MEDS: SOD HYPOCHLORITE 1/4 STRENGTH 473 ML 1 APPLIC TOPICAL ×2 (09:40→22:37)
[2020-08-15] MEDS: INSULIN GLARGINE (*BKC) 100 UNITS/ML 12 UNITS SUB-Q (10:01)
[2020-08-15 10:10] LABS: Glucose Point of Care 269 (65-105)
--- NOTE | 2020-08-15 11:09 | PCNFU ---
Nutrition Follow-Up Complete: Suboptimal nutritional support as related decub ulcer as evidenced by tube feedings at Glucerna 1.2 at 10 ml/hr. Goal: Meet estimated nutritional needs Patient has met currently goal. No new goal. Pt current nutrition is Glucerna 1.2 at 70 ml/hr. Last recorded weight is 82.2 kg, up from 78.6 kg on admit. Bowel Motility:+BM reported 08/14 Labs Reviewed:no labs to report. Meds Noted:Zoloft, Pepcid, Lantus, Vit C, Mag ox, NovoLog, Senokot, Norvasc Additional Notes: Patient seen today for nutrition followup. Spoke with nursing, patient is at goal of 70 ml/hr and tolerating. Current tube feeding is providing patient with 1848 kcals/92 gms protein/1240 ml water with free water flush at 60 ml q 4 hours. Agree with current diet orders. Monitoring: weight, labs, tube feeding tolerance every Friday and Friday.
--- NOTE | 2020-08-15 12:11 | PM.IMPN ---
Progress Note: A&P Assessment and Plan (1) Hypernatremia: Code(s): E87.0 - Hyperosmolality and hypernatremia Status: Acute Assessment and Plan: Continue to monitor. (2) Acute respiratory failure with hypoxia: Code(s): J96.01 - Acute respiratory failure with hypoxia Status: Acute Assessment and Plan: Resolved (3) Type 2 diabetes mellitus with hyperosmolar hyperglycemic state (HHS): Code(s): E11.00 - Type 2 diabetes mellitus with hyperosmolarity without nonketotic hyperglycemic-hyperosmolar coma (NKHHC); E11.65 - Type 2 diabetes mellitus with hyperglycemia Status: Acute Assessment and Plan: ISS as needed Accu checks ACHS (4) Altered mental status: Qualifiers: Altered mental status type: unspecified Qualified Code(s): R41.82 - Altered mental status, unspecified Code(s): R41.82 - Altered mental status, unspecified Status: Acute Assessment and Plan: Likely secondary to electrolyte abnormality (5) Hyperglycemia: Code(s): R73.9 - Hyperglycemia, unspecified Status: Acute Assessment and Plan: ISS as needed (6) Sepsis: Qualifiers: Sepsis acute organ dysfunction status: unspecified Sepsis type: sepsis due to unspecified organism Qualified Code(s): A41.9 - Sepsis, unspecified organism Code(s): A41.9 - Sepsis, unspecified organism Status: Acute Assessment and Plan: Improved on antibiotics. (7) Acute UTI: Code(s): N39.0 - Urinary tract infection, site not specified Status: Acute Assessment and Plan: On antibiotics catheter associated chronic indwelling Dorman cathter. (8) Pneumonia: Qualifiers: Laterality: unspecified laterality Lung location: unspecified part of lung Pneumonia type: due to unspecified organism Qualified Code(s): J18.9 - Pneumonia, unspecified organism Code(s): J18.9 - Pneumonia, unspecified organism Status: Acute Assessment and Plan: Continue antibiotics Improved. (9) Chronic constipation: Code(s): K59.09 - Other constipation Status: Inactive Assessment and Plan: Order KUB Subjective Date/time seen: 08/15/20 12:11 Interval history: 69 year old female with a past medical history of hypertension, CVA with expressive aphasia and dysphagia, insulin-dependent diabetes mellitus and chronic sacral decubitus ulcer who presented to the ER via EMS from [facility] due to altered mental status. Pt hands and arms are edematous. Review of Systems Review of Systems: All systems reviewed & are unremarkable except as noted in HPI and below Exam Const: General: ill appearing Limitations: altered mental status Resp: Effort & Inspection: normal respiratory effort and able to speak in complete sentences Auscultation: clear to auscultation bilaterally Cardio: Jugular venous distension: no JVD Rate: regular rate Rhythm: regular rhythm GI: Inspection: distended and other (PEG tube in situ ) Skin: Rashes: no rashes Wounds: wounds noted (Sacral decubitus.) Neuro: Cognition (Neuro): abnormal cognition Motor exam (neuro): 5/5 motor strength present throughout Extrem: Other: Edematous arms 3 + Objective Data Vital Signs Vital Signs: Vital Signs - 24 hr 08/14/20 14:00 08/14/20 22:00 08/14/20 22:16 Temperature 36.3 C L 36.8 C Pulse Rate 91 92 66 Respiratory Rate 16 18 Blood Pressure 122/55 L 119/64 Pulse Oximetry 95 95 08/15/20 06:00 08/15/20 09:38 Temperature 37.2 C Pulse Rate 89 93 Respiratory Rate 20 Blood Pressure 124/59 L Pulse Oximetry 94 Intake/Output Intake/Output: Intake & Output 08/12/20 08/13/20 08/14/20 08/15/20 23:59 23:59 23:59 23:59 Intake Total 5013 3960 1300 3321 Output Total 5271 420 3453 900 Balance 3963 3335 0 2421 Meds/Results Medications: Active Medications Generic Name Dose Route Start Last Admin Trade Name Freq PRN
[2020-08-15 13:42] LABS: Glucose Point of Care 276 (65-105)
[2020-08-15 14:00] VITALS: BP 109/47; PULSE 92; RESP 16; TEMP 36.3; O2SAT 97
--- NOTE | 2020-08-15 16:33 | PM.CNGS ---
Assessment and Plan Assessment and plan (1) Decubitus ulcer of sacral area: Qualifiers: Pressure injury stage: unstageable Qualified Code(s): L89.150 - Pressure ulcer of sacral region, unstageable Code(s): L89.159 - Pressure ulcer of sacral region, unspecified stage Status: Acute Assessment and Plan: Unstageable sacral decubitus ulcer that would benefit from excisional debridement. CT scan of the abdomen and pelvis is able to visualize ulcer and does not see any osseus erosion of the sacrum or concerns for osteomyelitis. I discussed the case with Dr. Pruett. He will evaluate the patient separately and possibly plan for a bedside debridement of the sacral decubitus ulcer tomorrow. She is currently on Plavix and would be at a higher risk for bleeding. May consider holding this medication tomorrow morning. Continue the local wound care at this time with Dakin's dressing changes BID. Depending on how the excisional debridement goes, we may considering speaking with the wound care nurses about trying an irrigating wound VAC if possible. She would also benefit from pressure offloading with frequent turns. Could consider a specialty mattress for her as well. Thank you for allowing us to see the patient in consultation and we will continue to follow along with you. (2) Sepsis: Qualifiers: Sepsis acute organ dysfunction status: unspecified Sepsis type: sepsis due to unspecified organism Qualified Code(s): A41.9 - Sepsis, unspecified organism Code(s): A41.9 - Sepsis, unspecified organism Status: Acute Assessment and Plan: Secondary to pneumonia vs UTI vs combination. WBC trending down. Lactic acid normal. Continue IV abx. Blood cultures NGTD. Urine culture grew E.Coli. Management per Hospitalist. (3) Pneumonia: Qualifiers: Laterality: unspecified laterality Lung location: unspecified part of lung Pneumonia type: due to unspecified organism Qualified Code(s): J18.9 - Pneumonia, unspecified organism Code(s): J18.9 - Pneumonia, unspecified organism Status: Acute (4) Acute UTI: Code(s): N39.0 - Urinary tract infection, site not specified Status: Acute (5) Type 2 diabetes mellitus with hyperosmolar hyperglycemic state (HHS): Code(s): E11.00 - Type 2 diabetes mellitus with hyperosmolarity without nonketotic hyperglycemic-hyperosmolar coma (NKHHC); E11.65 - Type 2 diabetes mellitus with hyperglycemia Status: Acute Assessment and Plan: Management per Hospitalist. (6) Acute respiratory failure with hypoxia: Code(s): J96.01 - Acute respiratory failure with hypoxia Status: Acute (7) Hypernatremia: Code(s): E87.0 - Hyperosmolality and hypernatremia Status: Acute Assessment and Plan: Na 150, trending down. Monitor labs. Management per Hospitalist. (8) Transaminitis: Code(s): R74.01 - Elevation of levels of liver transaminase levels Status: Acute Additional Plan I discussed the patient's case and formulated the plan of care with Dr. Pruett. History of Present Illness Consult details Consult date: 08/15/20 Reason for consult: other (Sacral decubitus ulcer) Requesting physician: Elizabeth Rojas MD Narrative: This is a 69-year-old female with a history of multiple co-morbidities including, but no limited to, IDDM, hypertension, history of CVA with expressive aphasia and dysphagia, and recent COVID 19 infection in June 2020. Due to her expressive dysphagia and communication barrier, she is unable to provide a history and I gathered information from review of her electronic medical record. She resides at a senior care and was found to have an altered mental status. On EMS arrival, she was diaphoretic, unresponsive, tachycardic, and hypoxic. She was brought to the ER and found to be septic with UTI and Pneumonia. She was admitted to the Hospitalist and started on broad-spectrum IV antib
[2020-08-15 17:39] LABS: Anion Gap 5 mmol/L (8-16); Blood Urea Nitrogen 26 mg/dL (7-17); Calcium 8.1 mg/dL (8.4-10.2); Carbon Dioxide 21 mmol/L (22-30); Chloride 111 mmol/L (98-107); Estimated CRCL calculation 82 ml/min; Estimated Glomerular Filt Rate > 60; Glucose 258 mg/dL (65-105); Potassium 4.1 mmol/L (3.4-5.0); Sodium 137 mmol/L (137-145)
[2020-08-15 18:21] LABS: Glucose Point of Care 272 (65-105)
[2020-08-15 20:00] VITALS: BP 127/67; PULSE 97; RESP 20; TEMP 36.7; O2SAT 91
[2020-08-15 20:40] VITALS: PULSE 82; RESP 20; O2SAT 91
[2020-08-15 22:36] VITALS: PULSE 82
[2020-08-15] MEDS: SERTRALINE HCL 50 MG TABLET 100 MG FEED TUBE (22:36)
[2020-08-16] MEDS: guaiFENesin 200 MG/10 ML UDC FEED TUBE ×4 (00:25→18:12)
[2020-08-16 01:00] LABS: Glucose Point of Care 231 (65-105)
[2020-08-16] MEDS: INSULIN ASPART (*BKC) 100 UNITS/ML SUB-Q ×4 (01:20→18:14)
[2020-08-16 05:48] VITALS: BP 125/52; PULSE 89; RESP 18; TEMP 36.9; O2SAT 98
[2020-08-16 06:37] LABS: Glucose Point of Care 299 (65-105)
[2020-08-16 07:22] LABS: Alanine Aminotransferase 70 U/L (4-35); Albumin Level 2.2 g/dL (3.5-5.1); Alkaline Phosphatase 232 U/L (38-126); Anion Gap 5 mmol/L (8-16); Aspartate Amino Transferase 95 U/L (14-36); Bilirubin,Total 0.2 mg/dL (0.2-1.3); Blood Urea Nitrogen 24 mg/dL (7-17); Calcium 7.8 mg/dL (8.4-10.2); Carbon Dioxide 23 mmol/L (22-30); Chloride 111 mmol/L (98-107); Estimated CRCL calculation 82 ml/min; Estimated Glomerular Filt Rate > 60; Glucose 296 mg/dL (65-105); Potassium 3.7 mmol/L (3.4-5.0); Sodium 139 mmol/L (137-145)
[2020-08-16] MEDS: SIMETHICONE 80 MG TAB.CHEW FEED TUBE ×2 (08:36→18:12)
[2020-08-16] MEDS: ROSUVASTATIN 10 MG TABLET 40 MG FEED TUBE (08:36)
[2020-08-16] MEDS: SENNOSIDES 8.6 MG TABLET FEED TUBE ×2 (08:36→18:12)
[2020-08-16] MEDS: FAMOTIDINE 20 MG TABLET FEED TUBE ×2 (08:36→20:28)
[2020-08-16] MEDS: ASCORBIC ACID 500 MG TABLET 1000 MG FEED TUBE (08:36)
[2020-08-16] MEDS: MAGNESIUM OXIDE 400 MG TABLET FEED TUBE ×2 (08:37→18:12)
[2020-08-16] MEDS: amLODIPine BESYLATE 5 MG TABLET FEED TUBE (08:37)
[2020-08-16] MEDS: HYDROcodone/acetaminophen (*CRX) 5-325 MG TABLET 1 TAB FEED TUBE (08:44)
[2020-08-16 11:29] VITALS: PULSE 92
[2020-08-16] MEDS: METOPROLOL TARTRATE 25 MG TABLET FEED TUBE ×2 (11:29→20:28)
[2020-08-16] MEDS: ASPIRIN 81 MG CHEWABLE TABLET XX (11:29)
--- NOTE | 2020-08-16 13:14 | PM.OP ---
Procedure Note - Brief Procedure Note - Brief Date of procedure: 08/16/20 Pre-op diagnosis: UTI, sacaral decubitis ulcer, 1. necrotic sacral decubitus ulcer( Stage 4) Post-op diagnosis: same Procedure performed: Excisionally debridement of skin, subcutaneous tissue, and muscle. Description of procedure: Informed consent was obtained with written consent from patient's POA. Following this with my nurse practitioner's help we rolled the patient into the far left lateral decubitus position to expose the sacral area. The old dressings were removed. Inspection revealed a wide approximately 10 x 15 cm opening over the patient's sacrum with dark brownish eschar covering the edges and extending down into the crevice or depths of the ulceration. I prepped the area with Betadine after a time-out was performed in the patient's room at the bedside. Patient was not complaining of any pain in the area and we could touch the area without causing her any pain. Following this I used a sterile scissors and sterile technique to begin on the patient's right side and began excising in 1 lump the necrotic tissue overlying this ulcer. I worked my way all way around circumferentially and removed this from the area. Three areas of significant bleeding occurred and these were suture ligated with 3-0 Vicryl. The other areas of minor bleeding on the edges were a controlled with battery cautery or silver nitrate sticks. Approximately 10 silver nitrate sticks were used. At the end of the procedure there was good hemostasis and there was hardly any tissue left overlying the sacrum and there was some grayish brownish tissue still present superior laterally on the right that was not completely debrided. Patient lost approximately 40 cc of blood during the procedure. At the end the procedure we dressed the entire debrided area of the sacrum with an unfolded 4 x 4 soaked in Dakin's solution followed by 2 dry 4x4s followed by 2 ABDs. These were taped into place. We then helped the nurses Aid carefully roll the patient and remove the previous shuck which was somewhat bloody and that nursing aid and Soni then cleaned the patient up as she has had a small bowel movements during the procedure. Patient did not complain about pain during the any of the procedure. I did not send any pathology. Silver from the wound care clinic came and looked at the post procedure wound and agreed that we could consider trying a irrigating or regular wound VAC on this area tomorrow. Will make sure there is not continuing bleeding by continuing the current dressing changes using Dakin's solution Until tomorrow and then consider applying the wound VAC with the dressing change tomorrow morning. Implants: none Anesthesia: none Surgeon: Mat Pruett MD Gear Machine Operator General: Christina IBARRA,SUPPLY CHAIN DESIGN MANAGER Estimated blood loss (mL): 40 Drains: No Packing: Yes ( Dakin solution on an unfolded 4 x 4, 2 dry 4x4s followed by 2 ABDs.) Pathology: other ( Swab of purulent fluid underlying portion of the ulcer for aerobic and anaerobic culture.) Complications: No immediate complications Condition: stable Disposition: floor Findings: Patient had a dark grayish brown eschar overlying the sacrum and some of the fascia of the gluteus krystal on either side of the sacrum. Underlying some of this eschar there was very liquified fat with purulence. The latter was culture with a swab sent for culture and sensitivity.
[2020-08-16] MEDS: INSULIN GLARGINE (*BKC) 100 UNITS/ML 12 UNITS SUB-Q (13:27)
[2020-08-16 13:38] LABS: Glucose Point of Care 322 (65-105)
[2020-08-16 14:00] VITALS: BP 121/54; PULSE 100; RESP 16; TEMP 36.7; O2SAT 99
[2020-08-16] MEDS: SILVER NITRATE (*SP) STICK 1 EACH TOPICAL (14:03)
--- NOTE | 2020-08-16 15:15 | PM.IMPN ---
Progress Note: A&P Assessment and Plan (1) Hypernatremia: Code(s): E87.0 - Hyperosmolality and hypernatremia Status: Resolved Assessment and Plan: Continue to monitor. Cl is low (2) Acute respiratory failure with hypoxia: Code(s): J96.01 - Acute respiratory failure with hypoxia Status: Acute Assessment and Plan: Resolved (3) Type 2 diabetes mellitus with hyperosmolar hyperglycemic state (HHS): Code(s): E11.00 - Type 2 diabetes mellitus with hyperosmolarity without nonketotic hyperglycemic-hyperosmolar coma (NKHHC); E11.65 - Type 2 diabetes mellitus with hyperglycemia Status: Acute Assessment and Plan: ISS as needed Accu checks ACHS (4) Altered mental status: Qualifiers: Altered mental status type: unspecified Qualified Code(s): R41.82 - Altered mental status, unspecified Code(s): R41.82 - Altered mental status, unspecified Status: Acute Assessment and Plan: Likely secondary to electrolyte abnormality (5) Hyperglycemia: Code(s): R73.9 - Hyperglycemia, unspecified Status: Acute Assessment and Plan: ISS as needed (6) Sepsis: Qualifiers: Sepsis acute organ dysfunction status: unspecified Sepsis type: sepsis due to unspecified organism Qualified Code(s): A41.9 - Sepsis, unspecified organism Code(s): A41.9 - Sepsis, unspecified organism Status: Acute Assessment and Plan: Improved on antibiotics. (7) Acute UTI: Code(s): N39.0 - Urinary tract infection, site not specified Status: Acute Assessment and Plan: On antibiotics catheter associated chronic indwelling Dorman cathter. (8) Pneumonia: Qualifiers: Laterality: unspecified laterality Lung location: unspecified part of lung Pneumonia type: due to unspecified organism Qualified Code(s): J18.9 - Pneumonia, unspecified organism Code(s): J18.9 - Pneumonia, unspecified organism Status: Acute Assessment and Plan: Continue antibiotics Improved. (9) Chronic constipation: Code(s): K59.09 - Other constipation Status: Inactive Assessment and Plan: KUB reviwed (10) Decubitus ulcer of sacral area: Qualifiers: Pressure injury stage: unstageable Qualified Code(s): L89.150 - Pressure ulcer of sacral region, unstageable Code(s): L89.159 - Pressure ulcer of sacral region, unspecified stage Status: Acute Assessment and Plan: Sp debridement under surgery Anemia continue to monitor Subjective Date/time seen: 08/16/20 15:15 Interval history: 69 year old female with a past medical history of hypertension, CVA with expressive aphasia and dysphagia, insulin-dependent diabetes mellitus and chronic sacral decubitus ulcer who presented to the ER via EMS from [facility] due to altered mental status. Pt had debridement today under surgery. Pt treated for UTI and pneumonia. Poor historian expressive aphasia. Review of Systems Review of Systems: All systems reviewed & are unremarkable except as noted in HPI and below Exam Const: General: ill appearing Limitations: altered mental status Resp: Effort & Inspection: normal respiratory effort and able to speak in complete sentences Auscultation: clear to auscultation bilaterally Cardio: Jugular venous distension: no JVD Rate: regular rate Rhythm: regular rhythm GI: Inspection: distended and other (PEG tube in situ ) Skin: Rashes: no rashes Wounds: wounds noted (Sacral decubitus.) Neuro: Cognition (Neuro): abnormal cognition Motor exam (neuro): 5/5 motor strength present throughout Extrem: Other: Edema 1+ Objective Data Vital Signs Vital Signs: Vital Signs - 24 hr 08/15/20 20:00 08/15/20 20:40 08/15/20 22:36 Temperature 36.7 C Pulse Rate 97 82 82 Respiratory Rate 20 20 Blood Pressure 127/67 Pulse Oximetry 91 91 08/16/20 05:48 08/16/20 11:29 Temp
[2020-08-16 18:30] LABS: Glucose Point of Care 317 (65-105)
[2020-08-16 20:28] VITALS: PULSE 96
[2020-08-16] MEDS: SERTRALINE HCL 50 MG TABLET 100 MG FEED TUBE (20:29)
[2020-08-16 21:51] VITALS: BP 109/56; PULSE 96; RESP 20; TEMP 36.4; O2SAT 98
[2020-08-17] MEDS: INSULIN ASPART (*BKC) 100 UNITS/ML SUB-Q ×4 (00:34→17:19)
[2020-08-17] MEDS: guaiFENesin 200 MG/10 ML UDC FEED TUBE ×4 (00:35→17:11)
[2020-08-17 00:48] LABS: Glucose Point of Care 246 (65-105)
[2020-08-17 06:00] VITALS: BP 120/58; PULSE 97; RESP 20; TEMP 36.3; O2SAT 93
[2020-08-17 06:00] LABS: Glucose Point of Care 276 (65-105)
[2020-08-17 06:12] LABS: Hematocrit 25.7 % (37.0-47.0); Hemoglobin 7.3 g/dL (12.0-15.0); Mean Corpuscular HGB Conc 28.4 g/dl (32-36); Mean Corpuscular Hemoglobin 24.3 pg (26-34); Mean Corpuscular Volume 85.7 fl (80-100); Mean Platelet Volume 11.5 fl (7.4-10.4); Platelet Count Result 250 k/mm3 (150-375); Red Cell Distribution Width 20.4 % (11.5-14.5); White Blood Count 9.5 K/mm3 (4.5-10.0)
[2020-08-17 06:25] LABS: Anion Gap 9 mmol/L (8-16); Blood Urea Nitrogen 23 mg/dL (7-17); Calcium 7.9 mg/dL (8.4-10.2); Carbon Dioxide 23 mmol/L (22-30); Chloride 111 mmol/L (98-107); Estimated CRCL calculation 82 ml/min; Estimated Glomerular Filt Rate > 60; Glucose 267 mg/dL (65-105); Potassium 3.8 mmol/L (3.4-5.0); Sodium 143 mmol/L (137-145)
[2020-08-17] MEDS: ROSUVASTATIN 10 MG TABLET 40 MG FEED TUBE (08:03)
[2020-08-17 08:04] VITALS: PULSE 100
[2020-08-17] MEDS: SENNOSIDES 8.6 MG TABLET FEED TUBE ×2 (08:04→17:11)
[2020-08-17] MEDS: ASPIRIN 81 MG CHEWABLE TABLET XX (08:04)
[2020-08-17] MEDS: ASCORBIC ACID 500 MG TABLET 1000 MG FEED TUBE (08:04)
[2020-08-17] MEDS: SIMETHICONE 80 MG TAB.CHEW FEED TUBE ×2 (08:04→17:11)
[2020-08-17] MEDS: MAGNESIUM OXIDE 400 MG TABLET FEED TUBE ×2 (08:04→17:11)
[2020-08-17] MEDS: METOPROLOL TARTRATE 25 MG TABLET FEED TUBE ×2 (08:04→22:07)
[2020-08-17] MEDS: FAMOTIDINE 20 MG TABLET FEED TUBE ×2 (08:05→22:08)
[2020-08-17] MEDS: amLODIPine BESYLATE 5 MG TABLET FEED TUBE (08:05)
[2020-08-17 08:10] LABS: Glucose Point of Care 262 (65-105)
[2020-08-17] MEDS: INSULIN GLARGINE (*BKC) 100 UNITS/ML 12 UNITS SUB-Q (08:10)
[2020-08-17] MEDS: CLOPIDOGREL BISULFATE 75 MG TABLET FEED TUBE (12:16)
[2020-08-17] MEDS: HYDROcodone/acetaminophen (*CRX) 5-325 MG TABLET 1 TAB FEED TUBE (12:24)
[2020-08-17 12:25] LABS: Glucose Point of Care 243 (65-105)
--- NOTE | 2020-08-17 12:35 | PM.IMPN ---
Progress Note: A&P Assessment and Plan (1) Hypernatremia: Code(s): E87.0 - Hyperosmolality and hypernatremia Status: Resolved Assessment and Plan: Continue to monitor. Cl is low (2) Acute respiratory failure with hypoxia: Code(s): J96.01 - Acute respiratory failure with hypoxia Status: Acute Assessment and Plan: Resolved (3) Type 2 diabetes mellitus with hyperosmolar hyperglycemic state (HHS): Code(s): E11.00 - Type 2 diabetes mellitus with hyperosmolarity without nonketotic hyperglycemic-hyperosmolar coma (NKHHC); E11.65 - Type 2 diabetes mellitus with hyperglycemia Status: Acute Assessment and Plan: ISS as needed Accu checks ACHS (4) Altered mental status: Qualifiers: Altered mental status type: unspecified Qualified Code(s): R41.82 - Altered mental status, unspecified Code(s): R41.82 - Altered mental status, unspecified Status: Acute Assessment and Plan: Likely secondary to electrolyte abnormality (5) Hyperglycemia: Code(s): R73.9 - Hyperglycemia, unspecified Status: Acute Assessment and Plan: ISS as needed (6) Sepsis: Qualifiers: Sepsis acute organ dysfunction status: unspecified Sepsis type: sepsis due to unspecified organism Qualified Code(s): A41.9 - Sepsis, unspecified organism Code(s): A41.9 - Sepsis, unspecified organism Status: Acute Assessment and Plan: Improved on antibiotics. (7) Acute UTI: Code(s): N39.0 - Urinary tract infection, site not specified Status: Acute Assessment and Plan: On antibiotics catheter associated chronic indwelling Dorman cathter. (8) Pneumonia: Qualifiers: Laterality: unspecified laterality Lung location: unspecified part of lung Pneumonia type: due to unspecified organism Qualified Code(s): J18.9 - Pneumonia, unspecified organism Code(s): J18.9 - Pneumonia, unspecified organism Status: Acute Assessment and Plan: Continue antibiotics Improved. (9) Chronic constipation: Code(s): K59.09 - Other constipation Status: Inactive Assessment and Plan: KUB reviwed (10) Decubitus ulcer of sacral area: Qualifiers: Pressure injury stage: unstageable Qualified Code(s): L89.150 - Pressure ulcer of sacral region, unstageable Code(s): L89.159 - Pressure ulcer of sacral region, unspecified stage Status: Acute Assessment and Plan: Sp debridement under surgery Anemia continue to monitor @7 today. Subjective Date/time seen: 08/17/20 12:35 Interval history: 69 year old female with a past medical history of hypertension, CVA with expressive aphasia and dysphagia, insulin-dependent diabetes mellitus and chronic sacral decubitus ulcer who presented to the ER via EMS from [facility] due to altered mental status. Pt had debridement under surgery. Pt treated for UTI and pneumonia. Poor historian expressive aphasia. Pt doing better more alert and responsive. Review of Systems Review of Systems: All systems reviewed & are unremarkable except as noted in HPI and below Exam Const: General: ill appearing Limitations: altered mental status Resp: Effort & Inspection: normal respiratory effort and able to speak in complete sentences Auscultation: clear to auscultation bilaterally Cardio: Jugular venous distension: no JVD Rate: regular rate Rhythm: regular rhythm GI: Inspection: distended and other (PEG tube in situ ) Skin: Rashes: no rashes Wounds: wounds noted (Sacral decubitus.) Neuro: Cognition (Neuro): abnormal cognition Motor exam (neuro): 5/5 motor strength present throughout Extrem: Other: Edema 1+ Objective Data Vital Signs Vital Signs: Vital Signs - 24 hr 08/16/20 14:00 08/16/20 20:28 08/16/20 21:51 Temperature 36.7 C 36.4 C Pulse Rate 100 96 96 Respiratory Rate 16 20 Blood Pressure 121/54 L 109/56 L
[2020-08-17 14:00] VITALS: BP 123/61; PULSE 91; RESP 18; TEMP 36.7; O2SAT 94
--- NOTE | 2020-08-17 16:44 | PM.PNGS ---
Progress Note: A&P Assessment and Plan (1) Decubitus ulcer of sacral area: Onset Date: Unknown Qualifiers: Pressure injury stage: unstageable Qualified Code(s): L89.150 - Pressure ulcer of sacral region, unstageable Code(s): L89.159 - Pressure ulcer of sacral region, unspecified stage Status: Acute Assessment and Plan: His main reason the surgery Services seen the patient. Cultures are pending. G stain showed multiple bacteria types. We will be using the wound VAC now and change it again on Friday unless there is air leak or problems. Wound VAC nurses will check the patient tomorrow as long as it is working well next planned dressing change on the sacral ulceration will be 06/2020. (2) Altered mental status: Qualifiers: Altered mental status type: unspecified Qualified Code(s): R41.82 - Altered mental status, unspecified Code(s): R41.82 - Altered mental status, unspecified Status: Acute Time Spent With Patient Time with patient: 15 - 25 minutes Subjective Subjective Date/Time Seen: 08/17/20 16:44 Patient lying in bed when I entered the room. We came with the wound care nurse to remove the dressing and possibly place a wound VAC. The patient seems slightly brighter and more alert today she did speak a few words. Patient would not specifically answer our questions however. Review of Systems Review of Systems: ROS unobtainable: Yes unobtainable due to medical condition Exam Const: General: cooperative, no acute distress, alert and awake Orientation/consciousness: Other orientation findings ( History of stroke does not answer questions well) HENMT: Mouth: Yes moist mucous membranes Chest: Chest palpation & inspection: normal inspection of the chest Resp: Effort & Inspection: normal respiratory effort GI: Inspection: normal to inspection GI Palp: No abdominal tenderness Rectal Exam: deferred Other: G-tube in place with tube feedings going through it in the left upper quadrant. Back/Spine/Pelvis: Sacrum: other ( Open wound over the sacrum 10 x 10.5 cm.) Other: This date using a sterile scissors and forceps from a suture removal kit I debrided some more dark necrotic tissue from the base of the patient's decubitus ulcer. We then help the wound care nurse roll the patient on the left side remove the old dressing do that debridement along with placing of wound VAC. Please see wound care notes. Skin: Other: Patient is wearing Harrington boots. We did not remove these to inspect the feet or ankles. Neuro: Cranial nerves: Yes Other cranial nerve findings present ( Not evaluated) Speech: normal speech Extrem: General: normal exam except as noted Psych: Mental Status: mental status grossly normal Speech and movement: Other speech and movement exam findings present (Psych) ( patient mumbles some words but not really intelligible.) Affect: Indifferent affect present Objective Data Vital Signs Vital Signs: Vital Signs - 24 hr 08/16/20 20:28 08/16/20 21:51 08/17/20 06:00 Temperature 36.4 C 36.3 C L Pulse Rate 96 96 97 Respiratory Rate 20 20 Blood Pressure 109/56 L 120/58 L Pulse Oximetry 98 93 08/17/20 08:04 08/17/20 14:00 Temperature 36.7 C Pulse Rate 100 91 Respiratory Rate 18 Blood Pressure 123/61 Pulse Oximetry 94 Intake/Output Intake/Output: Intake & Output 08/14/20 08/15/20 08/16/20 08/17/20 23:59 23:59 23:59 23:59 Intake Total 1300 6113 2076 300 Output Total 1300 1900 2100 950 Balance 0 4213 -24 -650 Meds/Results Medications: Active Medications Generic Name Dose Route Start Last Admin Trade Name Freq PRN Reason Stop Dose Admin Hydrocodone Bitart/Acetaminophen 1 tab 08/12/20 08:12 08/17/20 12:24 Hydrocodone/Acetaminophen (*Crx) 5-325 Mg Tablet FEED TUBE 1 tab Q8H PRN Administration Pain 7-10 Al Hydrox/Mg Hydrox/Simethicone 30 ml 08/12/20 08:31 Mag Hydrox/Al Hydrox/Simeth 30
[2020-08-17 17:22] LABS: Glucose Point of Care 273 (65-105)
[2020-08-17 21:54] VITALS: BP 129/60; PULSE 95; RESP 16; TEMP 36.9; O2SAT 98
[2020-08-17] MEDS: SERTRALINE HCL 50 MG TABLET 100 MG FEED TUBE (22:06)
[2020-08-17 22:07] VITALS: PULSE 95
[2020-08-18] MEDS: INSULIN ASPART (*BKC) 100 UNITS/ML SUB-Q ×4 (00:15→18:03)
[2020-08-18] MEDS: guaiFENesin 200 MG/10 ML UDC FEED TUBE ×4 (00:17→18:05)
[2020-08-18 00:27] LABS: Glucose Point of Care 258 (65-105)
[2020-08-18 05:34] VITALS: BP 129/57; PULSE 95; RESP 18; TEMP 36.7; O2SAT 96
[2020-08-18 06:06] LABS: Glucose Point of Care 278 (65-105)
[2020-08-18 06:07] LABS: Hematocrit 25.4 % (37.0-47.0); Hemoglobin 7.5 g/dL (12.0-15.0); Mean Corpuscular HGB Conc 29.5 g/dl (32-36); Mean Corpuscular Hemoglobin 25.2 pg (26-34); Mean Corpuscular Volume 85.2 fl (80-100); Mean Platelet Volume 11.5 fl (7.4-10.4); Platelet Count Result 261 k/mm3 (150-375); Red Blood Count 2.98 M/mm3 (4.2-5.4); Red Cell Distribution Width 20.4 % (11.5-14.5); White Blood Count 9.9 K/mm3 (4.5-10.0)
[2020-08-18 06:29] LABS: Anion Gap 3 mmol/L (8-16); Blood Urea Nitrogen 19 mg/dL (7-17); Calcium 7.6 mg/dL (8.4-10.2); Carbon Dioxide 25 mmol/L (22-30); Chloride 109 mmol/L (98-107); Estimated CRCL calculation 96 ml/min; Estimated Glomerular Filt Rate > 60; Glucose 285 mg/dL (65-105); Potassium 4.3 mmol/L (3.4-5.0); Sodium 137 mmol/L (137-145)
[2020-08-18] MEDS: ROSUVASTATIN 10 MG TABLET 40 MG FEED TUBE (09:54)
[2020-08-18] MEDS: SENNOSIDES 8.6 MG TABLET FEED TUBE ×2 (09:54→18:05)
[2020-08-18] MEDS: SIMETHICONE 80 MG TAB.CHEW FEED TUBE ×2 (09:54→18:05)
[2020-08-18 09:55] VITALS: PULSE 90
[2020-08-18] MEDS: amLODIPine BESYLATE 5 MG TABLET FEED TUBE (09:55)
[2020-08-18] MEDS: CLOPIDOGREL BISULFATE 75 MG TABLET FEED TUBE (09:55)
[2020-08-18] MEDS: METOPROLOL TARTRATE 25 MG TABLET FEED TUBE ×2 (09:55→20:23)
[2020-08-18] MEDS: ASPIRIN 81 MG CHEWABLE TABLET XX (09:55)
[2020-08-18] MEDS: FAMOTIDINE 20 MG TABLET FEED TUBE ×2 (09:55→20:25)
[2020-08-18] MEDS: ASCORBIC ACID 500 MG TABLET 1000 MG FEED TUBE (09:55)
[2020-08-18] MEDS: MAGNESIUM OXIDE 400 MG TABLET FEED TUBE ×2 (09:55→18:05)
[2020-08-18] MEDS: INSULIN GLARGINE (*BKC) 100 UNITS/ML 12 UNITS SUB-Q (09:59)
[2020-08-18] MEDS: HYDROcodone/acetaminophen (*CRX) 5-325 MG TABLET 1 TAB FEED TUBE (09:59)
[2020-08-18 10:22] LABS: Glucose Point of Care 265 (65-105)
--- NOTE | 2020-08-18 11:41 | PCNFU ---
Nutrition Follow-Up Complete: Suboptimal nutritional support as related decub ulcer as evidenced by tube feedings at Glucerna 1.2 at 10 ml/hr. Goal: Meet estimated nutritional needs Patient is currently meeting goal. No new goal. Pt current nutrition is Glucerna 1.2 at 70 ml/hr. Last recorded weight is 82.2 kg,up from 78.6 kg. Bowel Motility:+BM reported 08/17 Labs Reviewed:Glu 285,Hct 25.4,Hgb 7.5 Meds Noted:Mag Ox, Vit C, Lopressor, Lamar, Plavix Additional Notes: Nutrition follow up. Patient continues to tolerate Glucerna 1.2 at 70 ml/hr, which is providing 1848 kcals/92 gms protein/1240 ml water. Wounds noted: stage 4 Pressure Ulcer to buttocks, wound vac in place. Agree with diet orders and tube feeding rate. Monitoring: Will monitor every Friday and Friday.
--- NOTE | 2020-08-18 12:22 | PM.PNGS ---
Progress Note: A&P Assessment and Plan (1) Decubitus ulcer of sacral area: Onset Date: Unknown Qualifiers: Pressure injury stage: unstageable Qualified Code(s): L89.150 - Pressure ulcer of sacral region, unstageable Code(s): L89.159 - Pressure ulcer of sacral region, unspecified stage Status: Acute Assessment and Plan: This is the main reason the surgery Services has seen the patient. Cultures are pending. G stain showed multiple bacteria types. We will be using the wound VAC now and change it again on Friday unless there is air leak or problems. Wound VAC nurses will check the patient tomorrow as long as it is working well next planned dressing change on the sacral ulceration will be 06/2020. (2) Altered mental status: Qualifiers: Altered mental status type: unspecified Qualified Code(s): R41.82 - Altered mental status, unspecified Code(s): R41.82 - Altered mental status, unspecified Status: Acute Assessment and Plan: S/P stroke . Additional Plan I will not have Dr. Simpson round on patient over the weekend. Please call him if any problems with wound VAC or need for other surgery services through the weekend. Subjective Subjective Date/Time Seen: 08/18/20 08:22 Patient looks at me and speaks but languages is unintelligible at this time. Seems to be saying I want to go home Review of Systems Review of Systems: ROS unobtainable: Yes unobtainable due to medical condition and unobtainable due to mental status Exam Const: General: cooperative, comfortable, no acute distress, alert, awake and tired appearing Nutritional Appearance: average body habitus Orientation/consciousness: Other orientation findings ( History of stroke does not answer questions well) Limitations: altered mental status, physical limitations and other limitations HENMT: Head: normocephalic and atraumatic Ears: external ears normal General nose exam: Normal external nose present Mouth: Yes Normal oral and palatal mucosa present and Yes moist mucous membranes Eyes: General: appearance normal, both eyes and all related structures Conjunctivae: conjunctivae normal Sclera: sclerae normal Neck: Neck: normal visual inspection and full ROM Chest: Chest palpation & inspection: normal inspection of the chest Resp: Effort & Inspection: normal respiratory effort and no respiratory distress Auscultation: rhonchi throughout Cardio: Rate: regular rate Rhythm: regular rhythm Heart sounds: S1 normal heart sound present and S2 normal heart sound present GI: Inspection: normal to inspection, non-distended and other (LUQ gastrostomy tube in place) Auscultation: normal bowel sounds Rectal Exam: deferred and External hemorrhoid(s) present Other: G-tube in place with tube feedings going through it in the left upper quadrant. Back/Spine/Pelvis: Sacrum: other ( Open wound over the sacrum 10 x 10.5 cm.) Other: wound VAC seems to be holding suction. There is minimal serosanguineous drainage in the wound VAC container. Skin: General skin exam: normal color, no rashes or lesions noted and other (bilateral feet, lower legs with dry scaly skin) Other: Patient is wearing Harrington boots. We did not remove these to inspect the feet or ankles. Neuro: General: Unable to assess gait and other (left hemiparesis) Cranial nerves: Yes Other cranial nerve findings present ( Not evaluated) Speech: normal speech and Expressive aphasia present Gait exam (Neuro): Unable to assess gait Extrem: General: normal to inspection, normal exam except as noted and no clubbing, cyanosis or edema Objective Data Vital Signs Vital Signs: Vital Signs - 24 hr 08/17/20 14:00 08/17/20 21:54 08/17/20 22:07 Temperature 36.7 C 36.9 C Pulse Rate 91 95 95 Respiratory Rate 18 16 Blood Pressure 123/61 129/60 Pulse Oximetry 94 98 08/18/20 05:34 08/18/20 09:55 Temperature 36.7 C Pulse Rate 95 90 Resp
--- NOTE | 2020-08-18 13:01 | PM.IMPN ---
Progress Note: A&P Assessment and Plan (1) Hypernatremia: Code(s): E87.0 - Hyperosmolality and hypernatremia Status: Resolved Assessment and Plan: Continue to monitor. (2) Acute respiratory failure with hypoxia: Code(s): J96.01 - Acute respiratory failure with hypoxia Status: Acute Assessment and Plan: Resolved (3) Type 2 diabetes mellitus with hyperosmolar hyperglycemic state (HHS): Code(s): E11.00 - Type 2 diabetes mellitus with hyperosmolarity without nonketotic hyperglycemic-hyperosmolar coma (NKHHC); E11.65 - Type 2 diabetes mellitus with hyperglycemia Status: Acute Assessment and Plan: ISS as needed Accu checks ACHS (4) Altered mental status: Qualifiers: Altered mental status type: unspecified Qualified Code(s): R41.82 - Altered mental status, unspecified Code(s): R41.82 - Altered mental status, unspecified Status: Acute Assessment and Plan: Likely secondary to electrolyte abnormality (5) Hyperglycemia: Code(s): R73.9 - Hyperglycemia, unspecified Status: Acute Assessment and Plan: ISS as needed (6) Sepsis: Qualifiers: Sepsis acute organ dysfunction status: unspecified Sepsis type: sepsis due to unspecified organism Qualified Code(s): A41.9 - Sepsis, unspecified organism Code(s): A41.9 - Sepsis, unspecified organism Status: Acute Assessment and Plan: Improved on antibiotics. (7) Acute UTI: Code(s): N39.0 - Urinary tract infection, site not specified Status: Acute Assessment and Plan: On antibiotics catheter associated chronic indwelling Dorman cathter. (8) Pneumonia: Qualifiers: Laterality: unspecified laterality Lung location: unspecified part of lung Pneumonia type: due to unspecified organism Qualified Code(s): J18.9 - Pneumonia, unspecified organism Code(s): J18.9 - Pneumonia, unspecified organism Status: Acute Assessment and Plan: Continue antibiotics Improved. (9) Chronic constipation: Code(s): K59.09 - Other constipation Status: Inactive Assessment and Plan: KUB reviwed (10) Decubitus ulcer of sacral area: Onset Date: Unknown Qualifiers: Pressure injury stage: unstageable Qualified Code(s): L89.150 - Pressure ulcer of sacral region, unstageable Code(s): L89.159 - Pressure ulcer of sacral region, unspecified stage Status: Acute Assessment and Plan: Sp debridement under surgery pt is having vac therapy presently. Anemia continue to monitor @7 today. Subjective Date/time seen: 08/18/20 13:01 Interval history: 69 year old female with a past medical history of hypertension, CVA with expressive aphasia and dysphagia, insulin-dependent diabetes mellitus and chronic sacral decubitus ulcer who presented to the ER via EMS from [facility] due to altered mental status. Pt had debridement under surgery. Pt treated for UTI and pneumonia. Poor historian expressive aphasia. Pt having vac therapy for complicated sacral decubitus ulcer. Review of Systems Review of Systems: All systems reviewed & are unremarkable except as noted in HPI and below Exam Const: General: ill appearing Limitations: altered mental status Resp: Effort & Inspection: normal respiratory effort and able to speak in complete sentences Auscultation: clear to auscultation bilaterally Cardio: Jugular venous distension: no JVD Rate: regular rate Rhythm: regular rhythm GI: Inspection: distended and other (PEG tube in situ ) Skin: Rashes: no rashes Wounds: wounds noted (Sacral decubitus with vac theraphy ) Neuro: Cognition (Neuro): abnormal cognition Motor exam (neuro): 5/5 motor strength present throughout Extrem: Other: Edema 1+ Objective Data Vital Signs Vital Signs: Vital Signs - 24 hr 08/17/20 14:00 08/17/20 21:54 08/17/20 22:07 Temperature 36.7 C
[2020-08-18 14:00] VITALS: BP 124/56; PULSE 84; RESP 16; TEMP 36.9; O2SAT 100
[2020-08-18 16:50] LABS: Glucose Point of Care 281 (65-105)
[2020-08-18 18:37] LABS: Glucose Point of Care 296 (65-105)
[2020-08-18 20:23] VITALS: PULSE 98
[2020-08-18] MEDS: SERTRALINE HCL 50 MG TABLET 100 MG FEED TUBE (20:25)
[2020-08-18 22:00] VITALS: BP 128/60; PULSE 100; RESP 20; TEMP 36.6; O2SAT 100
[2020-08-19] VITALS (10 sets, daily range): BP systolic 117–146; BP diastolic 60–72; PULSE 90–103; RESP 16–20; TEMP 36.4–37; O2SAT 98–99
[2020-08-19] MEDS: guaiFENesin 200 MG/10 ML UDC FEED TUBE ×5 (01:02→23:50)
[2020-08-19] MEDS: INSULIN ASPART (*BKC) 100 UNITS/ML SUB-Q ×5 (01:06→23:49)
[2020-08-19 01:25] LABS: Glucose Point of Care 291 (65-105)
[2020-08-19 06:19] LABS: Glucose Point of Care 303 (65-105)
[2020-08-19 06:20] LABS: Hematocrit 25.9 % (37.0-47.0); Hemoglobin 7.8 g/dL (12.0-15.0); Mean Corpuscular HGB Conc 30.1 g/dl (32-36); Mean Corpuscular Hemoglobin 25.5 pg (26-34); Mean Corpuscular Volume 84.6 fl (80-100); Mean Platelet Volume 11.3 fl (7.4-10.4); Platelet Count Result 278 k/mm3 (150-375); Red Blood Count 3.06 M/mm3 (4.2-5.4); Red Cell Distribution Width 20.4 % (11.5-14.5); White Blood Count 9.7 K/mm3 (4.5-10.0)
[2020-08-19 06:43] LABS: Anion Gap 4 mmol/L (8-16); Blood Urea Nitrogen 19 mg/dL (7-17); Calcium 7.6 mg/dL (8.4-10.2); Carbon Dioxide 27 mmol/L (22-30); Chloride 106 mmol/L (98-107); Estimated CRCL calculation 96 ml/min; Estimated Glomerular Filt Rate > 60; Glucose 299 mg/dL (65-105); Potassium 3.9 mmol/L (3.4-5.0); Sodium 137 mmol/L (137-145)
[2020-08-19] MEDS: ROSUVASTATIN 10 MG TABLET 40 MG FEED TUBE (09:07)
[2020-08-19] MEDS: MAGNESIUM OXIDE 400 MG TABLET FEED TUBE ×2 (09:07→18:18)
[2020-08-19] MEDS: CLOPIDOGREL BISULFATE 75 MG TABLET FEED TUBE (09:07)
[2020-08-19] MEDS: amLODIPine BESYLATE 5 MG TABLET FEED TUBE (09:08)
[2020-08-19] MEDS: ASPIRIN 81 MG CHEWABLE TABLET XX (09:08)
[2020-08-19] MEDS: METOPROLOL TARTRATE 25 MG TABLET FEED TUBE ×2 (09:08→20:21)
[2020-08-19] MEDS: SIMETHICONE 80 MG TAB.CHEW FEED TUBE ×2 (09:08→18:18)
[2020-08-19] MEDS: FAMOTIDINE 20 MG TABLET FEED TUBE ×2 (09:08→20:20)
[2020-08-19] MEDS: ASCORBIC ACID 500 MG TABLET 1000 MG FEED TUBE (09:08)
[2020-08-19] MEDS: SENNOSIDES 8.6 MG TABLET FEED TUBE ×2 (09:10→18:27)
[2020-08-19] MEDS: INSULIN GLARGINE (*BKC) 100 UNITS/ML 12 UNITS SUB-Q (09:10)
[2020-08-19 11:44] LABS: Glucose Point of Care 357 (65-105)
--- NOTE | 2020-08-19 13:52 | PM.IMPN ---
Progress Note: A&P Assessment and Plan (1) Hypernatremia: Code(s): E87.0 - Hyperosmolality and hypernatremia Status: Resolved Assessment and Plan: Continue to monitor. (2) Acute respiratory failure with hypoxia: Code(s): J96.01 - Acute respiratory failure with hypoxia Status: Acute Assessment and Plan: Resolved (3) Type 2 diabetes mellitus with hyperosmolar hyperglycemic state (HHS): Code(s): E11.00 - Type 2 diabetes mellitus with hyperosmolarity without nonketotic hyperglycemic-hyperosmolar coma (NKHHC); E11.65 - Type 2 diabetes mellitus with hyperglycemia Status: Acute Assessment and Plan: ISS as needed Accu checks ACHS (4) Altered mental status: Qualifiers: Altered mental status type: unspecified Qualified Code(s): R41.82 - Altered mental status, unspecified Code(s): R41.82 - Altered mental status, unspecified Status: Acute Assessment and Plan: Likely secondary to electrolyte abnormality (5) Hyperglycemia: Code(s): R73.9 - Hyperglycemia, unspecified Status: Acute Assessment and Plan: ISS as needed (6) Sepsis: Qualifiers: Sepsis acute organ dysfunction status: unspecified Sepsis type: sepsis due to unspecified organism Qualified Code(s): A41.9 - Sepsis, unspecified organism Code(s): A41.9 - Sepsis, unspecified organism Status: Acute Assessment and Plan: Improved on antibiotics. (7) Acute UTI: Code(s): N39.0 - Urinary tract infection, site not specified Status: Acute Assessment and Plan: On antibiotics catheter associated chronic indwelling Dorman cathter. (8) Pneumonia: Qualifiers: Laterality: unspecified laterality Lung location: unspecified part of lung Pneumonia type: due to unspecified organism Qualified Code(s): J18.9 - Pneumonia, unspecified organism Code(s): J18.9 - Pneumonia, unspecified organism Status: Acute Assessment and Plan: Continue antibiotics Improved. (9) Chronic constipation: Code(s): K59.09 - Other constipation Status: Inactive Assessment and Plan: KUB reviwed (10) Decubitus ulcer of sacral area: Onset Date: Unknown Qualifiers: Pressure injury stage: unstageable Qualified Code(s): L89.150 - Pressure ulcer of sacral region, unstageable Code(s): L89.159 - Pressure ulcer of sacral region, unspecified stage Status: Acute Assessment and Plan: Sp debridement under surgery pt is having vac therapy presently. Change antibiotics to Zosyn. Anemia continue to monitor @7 today. transfuse one unit of blood pt looks very tired Subjective Date/time seen: 08/19/20 13:52 Interval history: 69 year old female with a past medical history of hypertension, CVA with expressive aphasia and dysphagia, insulin-dependent diabetes mellitus and chronic sacral decubitus ulcer who presented to the ER via EMS from [facility] due to altered mental status. Pt had debridement under surgery. Pt treated for UTI and pneumonia. Poor historian expressive aphasia. Pt having vac therapy for complicated sacral decubitus ulcer. Continue vac therapy over the weekend. Review of Systems Review of Systems: All systems reviewed & are unremarkable except as noted in HPI and below Exam Const: General: ill appearing Limitations: altered mental status Resp: Effort & Inspection: normal respiratory effort and able to speak in complete sentences Auscultation: clear to auscultation bilaterally Cardio: Jugular venous distension: no JVD Rate: regular rate Rhythm: regular rhythm GI: Inspection: distended and other (PEG tube in situ ) Skin: Rashes: no rashes Wounds: wounds noted (Sacral decubitus with vac theraphy ) Neuro: Cognition (Neuro): abnormal cognition Motor exam (neuro): 5/5 motor strength present throughout Extrem: Other: Edema 1+ Objective Data Vandana
[2020-08-19] MEDS: SODIUM CHLORIDE 0.9% IV 250 ML 30 ML IV CONT (17:20)
[2020-08-19 18:37] LABS: Glucose Point of Care 371 (65-105)
--- NOTE | 2020-08-19 20:11 | PC.NURSE ---
Patient missed Imipenem/Cilas 500mg/d5W 100ML 1800 dose on 08/19 due to patient recieving blood in right IV site and Left arm IV site infiltrated. Started a new IV in right hand for future needs. -AEW RN
[2020-08-19] MEDS: SERTRALINE HCL 50 MG TABLET 100 MG FEED TUBE (20:20)
[2020-08-19 23:44] LABS: Glucose Point of Care 331 (65-105)
[2020-08-20] VITALS (7 sets, daily range): BP systolic 118–145; BP diastolic 59–71; PULSE 83–101; RESP 18–20; TEMP 36.1–37.1; O2SAT 98–100
[2020-08-20 05:47] LABS: Glucose Point of Care 308 (65-105)
[2020-08-20] MEDS: INSULIN ASPART (*BKC) 100 UNITS/ML SUB-Q ×2 (05:49→23:50)
[2020-08-20] MEDS: guaiFENesin 200 MG/10 ML UDC FEED TUBE ×4 (05:49→23:58)
[2020-08-20] MEDS: INSULIN GLARGINE (*BKC) 100 UNITS/ML 12 UNITS SUB-Q (08:39)
[2020-08-20] MEDS: FAMOTIDINE 20 MG TABLET FEED TUBE ×2 (08:44→20:20)
[2020-08-20] MEDS: CLOPIDOGREL BISULFATE 75 MG TABLET FEED TUBE (08:44)
[2020-08-20] MEDS: METOPROLOL TARTRATE 25 MG TABLET FEED TUBE ×2 (08:45→20:19)
[2020-08-20] MEDS: ROSUVASTATIN 10 MG TABLET 40 MG FEED TUBE (08:45)
[2020-08-20] MEDS: ASCORBIC ACID 500 MG TABLET 1000 MG FEED TUBE (08:45)
[2020-08-20] MEDS: SIMETHICONE 80 MG TAB.CHEW FEED TUBE ×2 (08:45→17:48)
[2020-08-20] MEDS: SENNOSIDES 8.6 MG TABLET FEED TUBE ×2 (08:45→17:48)
[2020-08-20] MEDS: amLODIPine BESYLATE 5 MG TABLET FEED TUBE (08:45)
[2020-08-20] MEDS: ASPIRIN 81 MG CHEWABLE TABLET XX (08:45)
[2020-08-20] MEDS: MAGNESIUM OXIDE 400 MG TABLET FEED TUBE ×2 (08:45→17:48)
[2020-08-20] MEDS: INSULIN ASPART (*BKC) 100 UNITS/ML 10 UNITS SUB-Q ×2 (12:37→17:59)
[2020-08-20 12:52] LABS: Glucose Point of Care 411 (65-105)
--- NOTE | 2020-08-20 13:32 | PM.IMPN ---
Progress Note: A&P Assessment and Plan (1) Hypernatremia: Code(s): E87.0 - Hyperosmolality and hypernatremia Status: Resolved Assessment and Plan: Continue to monitor. (2) Acute respiratory failure with hypoxia: Code(s): J96.01 - Acute respiratory failure with hypoxia Status: Acute Assessment and Plan: Resolved (3) Type 2 diabetes mellitus with hyperosmolar hyperglycemic state (HHS): Code(s): E11.00 - Type 2 diabetes mellitus with hyperosmolarity without nonketotic hyperglycemic-hyperosmolar coma (NKHHC); E11.65 - Type 2 diabetes mellitus with hyperglycemia Status: Acute Assessment and Plan: ISS as needed Accu checks ACHS (4) Altered mental status: Qualifiers: Altered mental status type: unspecified Qualified Code(s): R41.82 - Altered mental status, unspecified Code(s): R41.82 - Altered mental status, unspecified Status: Resolved Assessment and Plan: Likely secondary to electrolyte abnormality (5) Hyperglycemia: Code(s): R73.9 - Hyperglycemia, unspecified Status: Acute Assessment and Plan: ISS as needed (6) Sepsis: Qualifiers: Sepsis acute organ dysfunction status: unspecified Sepsis type: sepsis due to unspecified organism Qualified Code(s): A41.9 - Sepsis, unspecified organism Code(s): A41.9 - Sepsis, unspecified organism Status: Acute Assessment and Plan: Improved on antibiotics. (7) Acute UTI: Code(s): N39.0 - Urinary tract infection, site not specified Status: Acute Assessment and Plan: On antibiotics catheter associated chronic indwelling Dorman cathter. (8) Pneumonia: Qualifiers: Laterality: unspecified laterality Lung location: unspecified part of lung Pneumonia type: due to unspecified organism Qualified Code(s): J18.9 - Pneumonia, unspecified organism Code(s): J18.9 - Pneumonia, unspecified organism Status: Acute Assessment and Plan: Continue antibiotics Improved. Imipenem for 10 days (9) Chronic constipation: Code(s): K59.09 - Other constipation Status: Inactive Assessment and Plan: KUB reviwed (10) Decubitus ulcer of sacral area: Onset Date: Unknown Qualifiers: Pressure injury stage: unstageable Qualified Code(s): L89.150 - Pressure ulcer of sacral region, unstageable Code(s): L89.159 - Pressure ulcer of sacral region, unspecified stage Status: Acute Assessment and Plan: Sp debridement under surgery pt is having vac therapy presently. Change antibiotics to Zosyn. Anemia continue to monitor @7 today. transfuse one unit of blood pt looks very tired Subjective Date/time seen: 08/20/20 13:32 Interval history: 69 year old female with a past medical history of hypertension, CVA with expressive aphasia and dysphagia, insulin-dependent diabetes mellitus and chronic sacral decubitus ulcer who presented to the ER via EMS from [facility] due to altered mental status. Pt had debridement under surgery. Pt treated for UTI and pneumonia. Poor historian expressive aphasia. Pt having vac therapy for complicated sacral decubitus ulcer. Continue vac therapy over the weekend. Review of Systems Review of Systems: All systems reviewed & are unremarkable except as noted in HPI and below Exam Narrative: Exam Narrative: Pt is chronically ill, communicates through muttering Resp: Effort & Inspection: normal respiratory effort Auscultation: clear to auscultation bilaterally Cardio: Jugular venous distension: no JVD Rate: regular rate Rhythm: regular rhythm GI: Inspection: distended and other (PEG tube in situ ) Skin: Rashes: no rashes Wounds: wounds noted (Sacral decubitus with vac theraphy ) Neuro: Cognition (Neuro): abnormal cognition Motor exam (neuro): 5/5 motor strength present throughout Extrem: Other: Edema 1+ Objective Data Vital
[2020-08-20 18:05] LABS: Glucose Point of Care 404 (65-105)
[2020-08-20] MEDS: SERTRALINE HCL 50 MG TABLET 100 MG FEED TUBE (20:20)
[2020-08-20] MEDS: MELATONIN 3 MG TABLET FEED TUBE (20:28)
[2020-08-21 00:12] LABS: Glucose Point of Care 298 (65-105)
[2020-08-21] MEDS: guaiFENesin 200 MG/10 ML UDC FEED TUBE ×4 (05:32→23:50)
[2020-08-21] MEDS: INSULIN ASPART (*BKC) 100 UNITS/ML SUB-Q ×3 (05:34→18:18)
[2020-08-21 06:00] VITALS: BP 123/62; PULSE 85; RESP 20; TEMP 36.4; O2SAT 100
[2020-08-21 06:05] LABS: Hematocrit 30.2 % (37.0-47.0); Hemoglobin 9.4 g/dL (12.0-15.0); Mean Corpuscular HGB Conc 31.1 g/dl (32-36); Mean Corpuscular Hemoglobin 26.3 pg (26-34); Mean Corpuscular Volume 84.4 fl (80-100); Mean Platelet Volume 11.2 fl (7.4-10.4); Platelet Count Result 250 k/mm3 (150-375); Red Blood Count 3.58 M/mm3 (4.2-5.4); Red Cell Distribution Width 19.4 % (11.5-14.5); White Blood Count 8.5 K/mm3 (4.5-10.0)
[2020-08-21 06:16] LABS: Glucose Point of Care 324 (65-105)
[2020-08-21 09:12] LABS: Anion Gap 3 mmol/L (8-16); Blood Urea Nitrogen 26 mg/dL (7-17); Carbon Dioxide 29 mmol/L (22-30); Chloride 106 mmol/L (98-107); Estimated CRCL calculation 82 ml/min; Estimated Glomerular Filt Rate > 60; Glucose 253 mg/dL (65-105); Potassium 3.9 mmol/L (3.4-5.0); Sodium 138 mmol/L (137-145)
[2020-08-21] MEDS: MAGNESIUM OXIDE 400 MG TABLET FEED TUBE ×2 (09:33→18:09)
[2020-08-21] MEDS: SIMETHICONE 80 MG TAB.CHEW FEED TUBE ×2 (09:33→18:09)
[2020-08-21] MEDS: amLODIPine BESYLATE 5 MG TABLET FEED TUBE (09:33)
[2020-08-21] MEDS: FAMOTIDINE 20 MG TABLET FEED TUBE ×2 (09:33→20:40)
[2020-08-21] MEDS: ASCORBIC ACID 500 MG TABLET 1000 MG FEED TUBE (09:33)
[2020-08-21] MEDS: SENNOSIDES 8.6 MG TABLET FEED TUBE ×2 (09:33→18:09)
[2020-08-21] MEDS: ROSUVASTATIN 10 MG TABLET 40 MG FEED TUBE (09:33)
[2020-08-21 09:35] VITALS: PULSE 95
[2020-08-21] MEDS: METOPROLOL TARTRATE 25 MG TABLET FEED TUBE ×2 (09:35→20:40)
[2020-08-21] MEDS: INSULIN GLARGINE (*BKC) 100 UNITS/ML 16 UNITS SUB-Q (09:40)
--- NOTE | 2020-08-21 11:29 | PM.PNGS ---
Progress Note: A&P Assessment and Plan (1) Decubitus ulcer of sacral area: Onset Date: Unknown Qualifiers: Pressure injury stage: unstageable Qualified Code(s): L89.150 - Pressure ulcer of sacral region, unstageable Code(s): L89.159 - Pressure ulcer of sacral region, unspecified stage Status: Acute Assessment and Plan: This is the main reason the surgery Services has seen the patient. Cultures are pending. Gram stain showed multiple bacteria types. We will be using the wound VAC now and change it again on unless there is air leak or problems. Examination the wound today reveals still some areas of necrosis but some areas of granulation. Centrally the wound is right down to the fascia overlying the sacrum. (2) Altered mental status: Qualifiers: Altered mental status type: unspecified Qualified Code(s): R41.82 - Altered mental status, unspecified Code(s): R41.82 - Altered mental status, unspecified Status: Resolved Assessment and Plan: S/P stroke . Additional Plan I would recommend that the ECF use a wound VAC over this area and also have a air mattress or air bed to offload pressure as patient may develope decubiti on the hips or somewhere else if this is not done. Subjective Subjective Date/Time Seen: 08/21/20 11:29 Patient seen during wound VAC dressing change. No change in mental / alertness status. nurses report patient being evaluated for possible transfer to ECF. Review of Systems Review of Systems: ROS unobtainable: Yes unobtainable due to medical condition and unobtainable due to mental status Exam Const: General: cooperative, comfortable, no acute distress, alert, awake and tired appearing Nutritional Appearance: average body habitus Orientation/consciousness: Other orientation findings ( History of stroke does not answer questions well) Limitations: altered mental status, physical limitations and other limitations GI: Inspection: normal to inspection, non-distended and other (LUQ gastrostomy tube in place) Auscultation: normal bowel sounds Rectal Exam: deferred and External hemorrhoid(s) present Other: G-tube in place with tube feedings going through it in the left upper quadrant. Back/Spine/Pelvis: Sacrum: other ( Open wound over the sacrum 10 x 10.5 cm.) Other: The wound VAC seems to be holding suction. There was about 100 ccl serosanguineous drainage in the wound VAC container from the last 3 days . Dressing change today with the wound VAC/ wound nurses and a small amount of necrotic material debrided. Less than 10% of the wound bed is granulating at this point. There is some obvious healthy muscle exposed and other areas of superficial necrosis which may need further debridement should he not debride further with the wound VAC. Next wound VAC dressing change planned for Friday(08/23/2020). Skin: General skin exam: normal color, no rashes or lesions noted and other (bilateral feet, lower legs with dry scaly skin) Other: Patient is wearing Harrington boots. We did not remove these to inspect the feet or ankles. Neuro: General: Unable to assess gait and other (left hemiparesis) Cranial nerves: Yes Other cranial nerve findings present ( Not evaluated) Speech: normal speech and Expressive aphasia present Gait exam (Neuro): Unable to assess gait Extrem: General: normal to inspection, normal exam except as noted and no clubbing, cyanosis or edema Objective Data Vital Signs Vital Signs: Vital Signs - 24 hr 08/20/20 13:31 08/20/20 20:00 08/20/20 20:19 Temperature 36.1 C L Pulse Rate 97 83 88 Respiratory Rate 20 18 Blood Pressure 139/71 Pulse Oximetry 98 100 08/20/20 22:00 08/21/20 06:00 08/21/20 09:35 Temperature 37.1 C 36.4 C L Pulse Rate 83 85 95 Respiratory Rate 18 20 Blood Pressure 118/59 L 123/62 Pulse Oximetry 100 100 Intake/Output Intake/Output: Intake & Output 08/18/20 08/19/20
[2020-08-21 12:15] LABS: Glucose Point of Care 302 (65-105)
--- NOTE | 2020-08-21 12:30 | PM.IMPN ---
Progress Note: A&P Assessment and Plan (1) Hypernatremia: Code(s): E87.0 - Hyperosmolality and hypernatremia Status: Resolved Assessment and Plan: Continue to monitor. (2) Acute respiratory failure with hypoxia: Code(s): J96.01 - Acute respiratory failure with hypoxia Status: Acute Assessment and Plan: Resolved (3) Type 2 diabetes mellitus with hyperosmolar hyperglycemic state (HHS): Code(s): E11.00 - Type 2 diabetes mellitus with hyperosmolarity without nonketotic hyperglycemic-hyperosmolar coma (NKHHC); E11.65 - Type 2 diabetes mellitus with hyperglycemia Status: Acute Assessment and Plan: ISS as needed Accu checks ACHS (4) Altered mental status: Qualifiers: Altered mental status type: unspecified Qualified Code(s): R41.82 - Altered mental status, unspecified Code(s): R41.82 - Altered mental status, unspecified Status: Resolved Assessment and Plan: Likely secondary to electrolyte abnormality and infection (5) Hyperglycemia: Code(s): R73.9 - Hyperglycemia, unspecified Status: Acute Assessment and Plan: ISS as needed (6) Sepsis: Qualifiers: Sepsis acute organ dysfunction status: unspecified Sepsis type: sepsis due to unspecified organism Qualified Code(s): A41.9 - Sepsis, unspecified organism Code(s): A41.9 - Sepsis, unspecified organism Status: Acute Assessment and Plan: Improved on Imipenem as per wound and urine cultures (7) Acute UTI: Code(s): N39.0 - Urinary tract infection, site not specified Status: Acute Assessment and Plan: On Imipenem catheter associated chronic indwelling Odrman cathter. (8) Pneumonia: Qualifiers: Laterality: unspecified laterality Lung location: unspecified part of lung Pneumonia type: due to unspecified organism Qualified Code(s): J18.9 - Pneumonia, unspecified organism Code(s): J18.9 - Pneumonia, unspecified organism Status: Acute Assessment and Plan: Continue antibiotics Improved. Imipenem for 10 days (9) Chronic constipation: Code(s): K59.09 - Other constipation Status: Inactive Assessment and Plan: KUB reviwed (10) Decubitus ulcer of sacral area: Onset Date: Unknown Qualifiers: Pressure injury stage: unstageable Qualified Code(s): L89.150 - Pressure ulcer of sacral region, unstageable Code(s): L89.159 - Pressure ulcer of sacral region, unspecified stage Status: Acute Assessment and Plan: Sp debridement under surgery pt is having vac therapy presently. pt is on imipenem which wound infection is sensitive to. Anemia continue to monitor @9 sp blood transfusion Awaiting air bed or off loading bed Subjective Date/time seen: 08/21/20 12:30 Interval history: 69 year old female with a past medical history of hypertension, CVA with expressive aphasia and dysphagia, insulin-dependent diabetes mellitus and chronic sacral decubitus ulcer who presented to the ER via EMS from [facility] due to altered mental status. Pt had debridement under surgery. Pt treated for UTI and pneumonia. Pt having vac therapy for complicated sacral decubitus ulcer. Continue vac therapy, see surgery notes, air mattress or air bed recommended. Pt appears better, poor historian due to expressive aphasia but nodding her head and looks more awake today. Review of Systems Review of Systems: All systems reviewed & are unremarkable except as noted in HPI and below Exam Narrative: Exam Narrative: Pt is chronically ill, communicates through muttering Const: General: ill appearing HENMT: General nose exam: Normal external nose present Face and sinus: normal facial exam Eyes: Alignment and Position: alignment abnormal Pupils: Equal, round and reactive pupils present EOM: EOMs intact bilaterally Neck: Neck: no lymphadenopathy, supple an
[2020-08-21 14:00] VITALS: BP 116/59; PULSE 92; RESP 16; TEMP 36.7; O2SAT 100
[2020-08-21 18:00] LABS: Add Urine Microscopic? YES; Appearance Urine Cloudy (Clear); Bacteria Urine Trace /hpf; Bilirubin Urine Negative (Negative); Blood Urine 1+ (Negative); Color Urine Yellow (Yellow); Glucose Urine UA 3+ mg/dL (Negative); Ketones Urine Trace mg/dL (Negative); Leukocyte Esterase Ur 3+ LEU/UL (Negative); Nitrate Urine Negative (Negative); Protein Urine 3+ mg/dL (Negative); RBC Urine >75 /hpf (0-2); Specific Grav Ur 1.017 (1.001-1.035); Transitional Epi Cells Urine Rare /hpf (None Seen); WBC Urine >75 /hpf
[2020-08-21 18:21] LABS: SARS-CoV-2 RNA PCR Negative
[2020-08-21 18:23] LABS: Glucose Point of Care 333 (65-105)
[2020-08-21 20:40] VITALS: PULSE 88
[2020-08-21] MEDS: SERTRALINE HCL 50 MG TABLET 100 MG FEED TUBE (20:40)
[2020-08-21 22:00] VITALS: BP 126/60; PULSE 92; RESP 16; TEMP 36.9; O2SAT 98
[2020-08-22] VITALS (7 sets, daily range): BP systolic 115–140; BP diastolic 66–75; PULSE 90–100; RESP 16–18; TEMP 36.3–37.2; O2SAT 96–99
[2020-08-22 00:06] LABS: Glucose Point of Care 275 (65-105)
[2020-08-22] MEDS: INSULIN ASPART (*BKC) 100 UNITS/ML SUB-Q ×4 (05:21→17:06)
[2020-08-22] MEDS: guaiFENesin 200 MG/10 ML UDC FEED TUBE ×3 (05:35→17:08)
[2020-08-22 06:16] LABS: Hematocrit 34.2 % (37.0-47.0); Hemoglobin 10.1 g/dL (12.0-15.0); Mean Corpuscular HGB Conc 29.5 g/dl (32-36); Mean Corpuscular Hemoglobin 25.6 pg (26-34); Mean Corpuscular Volume 86.8 fl (80-100); Mean Platelet Volume 11.2 fl (7.4-10.4); Platelet Count Result 257 k/mm3 (150-375); Red Blood Count 3.94 M/mm3 (4.2-5.4); Red Cell Distribution Width 19.4 % (11.5-14.5); White Blood Count 7.4 K/mm3 (4.5-10.0)
[2020-08-22 06:30] LABS: Anion Gap 6 mmol/L (8-16); Blood Urea Nitrogen 25 mg/dL (7-17); Calcium 8.1 mg/dL (8.4-10.2); Carbon Dioxide 26 mmol/L (22-30); Chloride 104 mmol/L (98-107); Estimated CRCL calculation 96 ml/min; Estimated Glomerular Filt Rate > 60; Glucose 306 mg/dL (65-105); Potassium 3.9 mmol/L (3.4-5.0); Sodium 136 mmol/L (137-145)
[2020-08-22 06:32] LABS: Glucose Point of Care 297 (65-105)
[2020-08-22] MEDS: MAGNESIUM OXIDE 400 MG TABLET FEED TUBE ×2 (08:44→17:08)
[2020-08-22] MEDS: METOPROLOL TARTRATE 25 MG TABLET FEED TUBE ×2 (08:44→20:15)
[2020-08-22] MEDS: amLODIPine BESYLATE 5 MG TABLET FEED TUBE (08:44)
[2020-08-22] MEDS: ASCORBIC ACID 500 MG TABLET 1000 MG FEED TUBE (08:44)
[2020-08-22] MEDS: FAMOTIDINE 20 MG TABLET FEED TUBE ×2 (08:44→20:15)
[2020-08-22] MEDS: SENNOSIDES 8.6 MG TABLET FEED TUBE ×2 (08:45→17:08)
[2020-08-22] MEDS: ROSUVASTATIN 10 MG TABLET 40 MG FEED TUBE (08:45)
[2020-08-22] MEDS: SIMETHICONE 80 MG TAB.CHEW FEED TUBE ×2 (08:45→17:08)
[2020-08-22] MEDS: INSULIN GLARGINE (*BKC) 100 UNITS/ML 16 UNITS SUB-Q (08:46)
--- NOTE | 2020-08-22 11:07 | PM.PNGS ---
Progress Note: A&P Assessment and Plan (1) Decubitus ulcer of sacral area: Onset Date: Unknown Qualifiers: Pressure injury stage: unstageable Qualified Code(s): L89.150 - Pressure ulcer of sacral region, unstageable Code(s): L89.159 - Pressure ulcer of sacral region, unspecified stage Status: Acute Assessment and Plan: This is the main reason the surgery Services has seen the patient. Cultures are pending. Gram stain showed multiple bacteria types. We will be using the wound VAC now and change it again on unless there is air leak or problems. Examination the wound today reveals still some areas of necrosis but some areas of granulation. Centrally the wound is right down to the fascia overlying the sacrum. (2) Altered mental status: Qualifiers: Altered mental status type: unspecified Qualified Code(s): R41.82 - Altered mental status, unspecified Code(s): R41.82 - Altered mental status, unspecified Status: Resolved Assessment and Plan: S/P stroke . Additional Plan I would recommend that the ECF use a wound VAC over this area and also have a air mattress or air bed to offload pressure as patient may develope decubiti on the hips or somewhere else if this is not done. Subjective Subjective Date/Time Seen: 08/22/20 11:07 patient getting a bed bath when I entered the room. NA reports no changes in her current status. Review of Systems Review of Systems: ROS unobtainable: Yes unobtainable due to medical condition and unobtainable due to mental status Exam Const: General: cooperative, comfortable, no acute distress, alert, awake and tired appearing Nutritional Appearance: average body habitus Orientation/consciousness: Other orientation findings ( History of stroke does not answer questions well) Limitations: altered mental status, physical limitations and other limitations HENMT: Head: normocephalic and atraumatic Ears: external ears normal General nose exam: Normal external nose present Mouth: Yes Normal oral and palatal mucosa present and Yes moist mucous membranes Eyes: General: appearance normal, both eyes and all related structures Conjunctivae: conjunctivae normal Sclera: sclerae normal Neck: Neck: normal visual inspection and full ROM Chest: Chest palpation & inspection: normal inspection of the chest Resp: Effort & Inspection: normal respiratory effort and no respiratory distress Auscultation: rhonchi throughout Cardio: Rate: regular rate Rhythm: regular rhythm Heart sounds: S1 normal heart sound present and S2 normal heart sound present GI: Inspection: normal to inspection, non-distended and other (LUQ gastrostomy tube in place) Auscultation: normal bowel sounds Rectal Exam: deferred and External hemorrhoid(s) present Other: G-tube in place with tube feedings going through it in the left upper quadrant. Back/Spine/Pelvis: Sacrum: other ( Open wound over the sacrum 10 x 10.5 cm.) Other: The wound VAC seems to be holding suction. There is about 25 cc serosanguineous drainage in the wound VAC container from the last day . Dressing change for the wound VAC/ wound nurses will be tomorrow. Last seen on 08/21----Less than 10% of the wound bed is granulating at this point. There is some obvious healthy muscle exposed and other areas of superficial necrosis which may need further debridement should he not debride further with the wound VAC. Next wound VAC dressing change planned for Friday(08/23/2020). Skin: General skin exam: normal color, no rashes or lesions noted and other (bilateral feet, lower legs with dry scaly skin) Other: Patient is wearing Harrington boots. We did not remove these to inspect the feet or ankles. Neuro: General: Unable to assess gait and other (left hemiparesis) Cranial nerves: Yes Other cranial nerve findings present ( Not evaluated) Speech: normal speech and Expressive aphasia present Gait exam (Ne
--- NOTE | 2020-08-22 11:33 | PCNFU ---
Nutrition Follow-Up Complete: Suboptimal nutritional support as related decub ulcer as evidenced by tube feedings at Glucerna 1.2 at 10 ml/hr. Goal: Meet estimated nutritional needs Patient has met current goal. No new goal. Pt current nutrition is Glucerna 1.2 at 70 ml/hr Last recorded weight is 82.2 kg,up from 78.6 kg on admit. Bowel Motility:+BM reported 08/21 Labs Reviewed:NA 136,Hct 34.2,Hgb 10.1 Meds Noted:Mylicon,Lantus,Mag ox, Zoloft,Crestor, Pepcid. Additional Notes: Patient seen today for nutrition follow up. Tube feedings of Glucerna 1.2 at goal rate of 70 ml/hr. Providing 1848 kcals/92 gms protein. Wounds noted: Stage 4 PU to buttocks with wound vac. Agree with diet orders. Monitoring: weight, labs, tube feedings every Friday and Friday.
[2020-08-22 11:51] LABS: Glucose Point of Care 278 (65-105)
--- NOTE | 2020-08-22 12:59 | PM.IMPN ---
Progress Note: A&P Assessment and Plan (1) Abdominal pain: Code(s): R10.9 - Unspecified abdominal pain Status: Acute Assessment and Plan: CT on admission showing large amount of colonic diarrhea and gas. She has lower abd pain so will check KUB. KUB showing moderate to large amount of colonic stool and gas. RN instructed to give SS enema. (2) Decubitus ulcer of sacral area: Onset Date: Unknown Qualifiers: Pressure injury stage: unstageable Qualified Code(s): L89.150 - Pressure ulcer of sacral region, unstageable Code(s): L89.159 - Pressure ulcer of sacral region, unspecified stage Status: Acute Assessment and Plan: Patient with sacral decubitus ulcer s/p debridement by surgery on 08/17. Patient with vac therapy presently. Continue imipenem which wound infection is sensitive to. Continue appropriate wound care and pressure reduction. (3) Hypernatremia: Code(s): E87.0 - Hyperosmolality and hypernatremia Status: Resolved Assessment and Plan: Na in to the 150's early in her course but resolved now. Continue to monitor. (4) Acute respiratory failure with hypoxia: Code(s): J96.01 - Acute respiratory failure with hypoxia Status: Acute Assessment and Plan: Related to PNA. Resolved (5) Type 2 diabetes mellitus with hyperosmolar hyperglycemic state (HHS): Code(s): E11.00 - Type 2 diabetes mellitus with hyperosmolarity without nonketotic hyperglycemic-hyperosmolar coma (NKHHC); E11.65 - Type 2 diabetes mellitus with hyperglycemia Status: Acute Assessment and Plan: The patient's blood glucose was reviewed on 08/22 Glucose remains poorly controlled. Continue AccuCheks covering with sliding scale. Hypoglycemia protocol available as needed. Advance Lantus (6) Altered mental status: Qualifiers: Altered mental status type: unspecified Qualified Code(s): R41.82 - Altered mental status, unspecified Code(s): R41.82 - Altered mental status, unspecified Status: Resolved Assessment and Plan: Likely secondary to sepsis, electrolyte abnormality and infection. Improved. (7) Sepsis: Qualifiers: Sepsis acute organ dysfunction status: unspecified Sepsis type: sepsis due to unspecified organism Qualified Code(s): A41.9 - Sepsis, unspecified organism Code(s): A41.9 - Sepsis, unspecified organism Status: Acute Assessment and Plan: Related to PNA and UTI and also probably from decubitus ulcer. Improved on Imipenem and appropriate wound care. (8) Pneumonia: Qualifiers: Laterality: unspecified laterality Lung location: unspecified part of lung Pneumonia type: due to unspecified organism Qualified Code(s): J18.9 - Pneumonia, unspecified organism Code(s): J18.9 - Pneumonia, unspecified organism Status: Acute Assessment and Plan: CXRF on 08/11 showing bibasilar, left greater than right airspace disease. CT of the abdomen on that same day showing moderate amount of bibasilar multifocal pneumonia. CXR this morning showing worsening diffuse lung disease. She has remained on room air since admission. She remains afebrile and with normal WBC. She is currently on Primaxin since 08/13 with plans for 10 days of treatment. Cumulative fluid positive by 9L so could be pulmonary edema. Treat with Lasix. Finish abx. (9) Acute UTI: Code(s): N39.0 - Urinary tract infection, site not specified Status: Acute Assessment and Plan: UCx 08/11 growing relatively sensitive EColi. Catheter associated chronic indwelling Dorman catheter. On Imipenem. (10) Chronic constipation: Code(s): K59.09 - Other constipation Status: Inactive Assessment and Plan: As above (11) DVT prophylaxis: Code(s): Z29.9 - Encounter for prophylactic measures, unspecified Status: Acute Asse
[2020-08-22 17:04] LABS: Glucose Point of Care 305 (65-105)
[2020-08-22] MEDS: FUROSEMIDE INJ 40 MG/4 ML VIAL 20 MG IV PUSH (20:10)
[2020-08-22] MEDS: SERTRALINE HCL 50 MG TABLET 100 MG FEED TUBE (20:15)
[2020-08-23] VITALS (7 sets, daily range): BP systolic 119–135; BP diastolic 57–65; PULSE 80–93; RESP 16–20; TEMP 36.4–37.1; O2SAT 99–100
[2020-08-23] MEDS: guaiFENesin 200 MG/10 ML UDC FEED TUBE ×4 (00:37→18:55)
[2020-08-23 00:40] LABS: Glucose Point of Care 308 (65-105)
[2020-08-23] MEDS: INSULIN ASPART (*BKC) 100 UNITS/ML SUB-Q ×4 (00:40→18:57)
[2020-08-23] MEDS: MELATONIN 3 MG TABLET FEED TUBE ×2 (00:40→21:04)
[2020-08-23 06:10] LABS: Glucose Point of Care 286 (65-105)
[2020-08-23 06:32] LABS: Basophils Percent Auto 0.3 % (0.2-1.2); Eosinophils Absolute Auto 0.1 K/mm3 (0-0.3); Eosinophils Percent Auto 0.8 % (0-4.4); Hematocrit 31.4 % (37.0-47.0); Hemoglobin 9.4 g/dL (12.0-15.0); Immature Granulocyte Absolute 0.17 K/mm3 (0.00-0.031); Immature Granulocyte Percent A 1.7 % (0-0.5); Lymphocytes Absolute Auto 2.33 K/mm3 (0.9-3.2); Lymphocytes Percent Auto 22.7 % (18.3-44.2); Mean Corpuscular HGB Conc 29.9 g/dl (32-36); Mean Platelet Volume 10.9 fl (7.4-10.4); Monocytes Absolute Auto 0.9 K/mm3 (0.1-0.6); Monocytes Percent Auto 8.7 % (2.6-8.5); Neutrophils Absolute Auto 6.8 K/mm3 (1.3-6.7); Neutrophils Percent Auto 65.8 % (45.5-73.1); Platelet Count Result 262 k/mm3 (150-375); Red Blood Count 3.61 M/mm3 (4.2-5.4); Red Cell Distribution Width 19.4 % (11.5-14.5); White Blood Count 10.3 K/mm3 (4.5-10.0)
[2020-08-23 06:44] LABS: Alanine Aminotransferase 149 U/L (4-35); Albumin Level 2.6 g/dL (3.5-5.1); Alkaline Phosphatase 360 U/L (38-126); Anion Gap 5 mmol/L (8-16); Aspartate Amino Transferase 244 U/L (14-36); Bilirubin,Total 0.2 mg/dL (0.2-1.3); Blood Urea Nitrogen 29 mg/dL (7-17); Calcium 7.9 mg/dL (8.4-10.2); Carbon Dioxide 27 mmol/L (22-30); Chloride 102 mmol/L (98-107); Estimated CRCL calculation 82 ml/min; Estimated Glomerular Filt Rate > 60; Glucose 286 mg/dL (65-105); Magnesium 2.2 mg/dL (1.6-2.3); Phosphorus 3.6 mg/dL (2.5-4.5); Sodium 134 mmol/L (137-145)
[2020-08-23 07:08] LABS: Anisocytosis 1+ (NORMAL); Ovalocytes 1+ (NORMAL); Platelet Estimate Adequate (Adequate)
[2020-08-23] MEDS: INSULIN GLARGINE (*BKC) 100 UNITS/ML 20 UNITS SUB-Q (10:27)
[2020-08-23] MEDS: ASCORBIC ACID 500 MG TABLET 1000 MG FEED TUBE (10:35)
[2020-08-23] MEDS: FAMOTIDINE 20 MG TABLET FEED TUBE ×2 (10:36→20:55)
[2020-08-23] MEDS: amLODIPine BESYLATE 5 MG TABLET FEED TUBE (10:36)
[2020-08-23] MEDS: polyethylene glycoL 3350 17 GM POWD.PACK PO (10:37)
[2020-08-23] MEDS: SIMETHICONE 80 MG TAB.CHEW FEED TUBE ×2 (10:37→18:56)
[2020-08-23] MEDS: METOPROLOL TARTRATE 25 MG TABLET FEED TUBE ×2 (10:37→20:54)
[2020-08-23] MEDS: MAGNESIUM OXIDE 400 MG TABLET FEED TUBE ×2 (10:37→18:55)
[2020-08-23] MEDS: SENNOSIDES 8.6 MG TABLET FEED TUBE ×2 (10:37→18:55)
[2020-08-23] MEDS: SILVER NITRATE (*SP) STICK 10 EACH TOPICAL (11:05)
[2020-08-23] MEDS: FUROSEMIDE INJ 40 MG/4 ML VIAL IV PUSH (11:49)
[2020-08-23 13:12] LABS: Glucose Point of Care 305 (65-105)
--- NOTE | 2020-08-23 16:12 | PM.IMPN ---
Progress Note: A&P Assessment and Plan (1) Abdominal pain: Code(s): R10.9 - Unspecified abdominal pain Status: Acute Assessment and Plan: CT on admission showing large amount of colonic diarrhea and gas. She has lower abd pain and KUB showing moderate to large amount of colonic stool and gas. RN instructed to give SS enema with 1 BM listed but exam much better. Add Miralax. LFTs higher today. COuld be related to hepatic congestion from fluid overload or from the Primaxin. Check RUQ. Repeat lasix. Stop Crestor RUQ US showing mild gallbladder wall thickening most likely from underdistention but otherwise unremarkable liver. Renal US ordered by Urology showing right hydornephrosis and low levels echoes in the bladder. (2) Decubitus ulcer of sacral area: Onset Date: Unknown Qualifiers: Pressure injury stage: unstageable Qualified Code(s): L89.150 - Pressure ulcer of sacral region, unstageable Code(s): L89.159 - Pressure ulcer of sacral region, unspecified stage Status: Acute Assessment and Plan: Patient with sacral decubitus ulcer s/p debridement by surgery on 08/17. Patient with vac therapy presently. Treated with imipenem which wound infection is sensitive to. Continue appropriate wound care and pressure reduction. Stop abx. (3) Hypernatremia: Code(s): E87.0 - Hyperosmolality and hypernatremia Status: Resolved Assessment and Plan: Na in to the 150's early in her course but resolved now. Continue to monitor. (4) Acute respiratory failure with hypoxia: Code(s): J96.01 - Acute respiratory failure with hypoxia Status: Acute Assessment and Plan: Related to PNA. Resolved (5) Type 2 diabetes mellitus with hyperosmolar hyperglycemic state (HHS): Code(s): E11.00 - Type 2 diabetes mellitus with hyperosmolarity without nonketotic hyperglycemic-hyperosmolar coma (NKHHC); E11.65 - Type 2 diabetes mellitus with hyperglycemia Status: Acute Assessment and Plan: The patient's blood glucose was reviewed on 08/23 Glucose remains poorly controlled. Continue AccuCheks covering with sliding scale. Hypoglycemia protocol available as needed. Advance Lantus again (6) Altered mental status: Qualifiers: Altered mental status type: unspecified Qualified Code(s): R41.82 - Altered mental status, unspecified Code(s): R41.82 - Altered mental status, unspecified Status: Resolved Assessment and Plan: Likely secondary to sepsis, electrolyte abnormality and infection. Improved. (7) Sepsis: Qualifiers: Sepsis acute organ dysfunction status: unspecified Sepsis type: sepsis due to unspecified organism Qualified Code(s): A41.9 - Sepsis, unspecified organism Code(s): A41.9 - Sepsis, unspecified organism Status: Acute Assessment and Plan: Related to PNA and UTI and also probably from decubitus ulcer. Improved on Imipenem and appropriate wound care. (8) Pneumonia: Qualifiers: Laterality: unspecified laterality Lung location: unspecified part of lung Pneumonia type: due to unspecified organism Qualified Code(s): J18.9 - Pneumonia, unspecified organism Code(s): J18.9 - Pneumonia, unspecified organism Status: Acute Assessment and Plan: CXR on 08/11 showing bibasilar, left greater than right airspace disease. CT of the abdomen on that same day showing moderate amount of bibasilar multifocal pneumonia. CXR 08/22 showing worsening diffuse lung disease. She has remained on room air since admission. She remains afebrile and with normal WBC. She is currently on Primaxin since 08/13 with plans for 10 days of treatment. Cumulative fluid positive by 9L so could be pulmonary edema. Lasix given yesterday but UOP not recorded. Stop Promaxin. (9) Acute UTI: Code(s): N39.0 - Urinary tract infection, site not specified
--- NOTE | 2020-08-23 16:22 | WPDURCON ---
Assessment and Plan Assessment and plan (1) Cloudy urine: Code(s): R82.90 - Unspecified abnormal findings in urine Status: Acute Assessment and Plan: URine will be re-cultured. It is milky in appearance. (2) Gorman catheter problem: Code(s): T83.9XXA - Unspecified complication of genitourinary prosthetic device, implant and graft, initial encounter Status: Acute Assessment and Plan: I evacuated >1000ml of milky appearing urine from her bladder via catheter. I exchanged her gorman for a 16fr straight catheter without issues today. I cleaned the ureteral meatus with Betadine prior to insertion of the new catheter. The previous catheter was removed without difficulty. Prior to removal of the old catheter I attempted to flush it with 500cc of Sterile Water without success. Her TONE doesn't show any anatomic abnormalities, therefore she likely was obstructed d/t sediment from chronic cystitis or infection. Continue IV antibiotics and irrigate PRN, tailor antibiotics to cutlure results. Change ogrman catheter monthly and PRN. Urology Consult Note HPI Date Seen: 08/23/20 Requesting Physician: Pranav Holguin MD Primary Care Provider: COMPOSITOR APPRENTICE PHYSICIAN Consult Narrative Narrative: Tara Marcano is a 69 year old female who initially came to the ER on 08/11/2020 for weakness from the GA. She is currently being treated for pneumonia, a large decubitus ulcer which was debrided by general surgery and cystitis. She had a CVA in the past and is non verbal, she doesn't make eye contact either with conversation. We were consulted last night d/t bladder spasms and her catheter not draining and it was apparently changed last night and irrigated, but is still not draining well. She has a chronic catheter which is changed monthly at the GA. She is a patient of Dr. Kidd'macie who did do surgery on her last year for a ureteral stone with stent placement. She was seen by him most recently in 03/2020 for her stent removal. She was found to have a UTI on 08/11/2020, which was growing E-Coli and she was treated with Imipenem. Her repeat urine culture on 08/21/2020 was negative. WBC is 10.3, creatinine is 0.[address] scan done on 08/11/2020 shows cystitis. A TONE today shows mild right hydronephrosis and low level echoes in the urine in the bladder correlating with the abnormal urinalysis. Review of Systems Review of Systems: ROS unobtainable: Yes unobtainable due to medical condition PMFSH Past Medical History Medical History Cancer of left breast Chronic constipation With fecal impaction in July 2020 at [facility] Chronic indwelling Gorman catheter Since January of 2020 due to chronic urinary retention with hydronephrosis Coronary artery disease CVA (cerebral vascular accident) 2010 and in 2015 with chronic left hemiparesis, dysphagia and expressive aphasia Depression Diabetic peripheral neuropathy Essential hypertension Hyperlipidemia Infection with multi-drug resistant microorganisms UTI Kidney stones Pneumonia due to COVID-19 virus July 10, 2020 Sacral decubitus ulcer, stage IV Type 2 diabetes mellitus Vitamin D deficiency Surgical History Surgical History Gastrostomy tube in place History of left mastectomy 2010 History of partial thyroidectomy 1993 S/P ureteral stent placement January 2020 right sided Status post abdominal aortic aneurysm repair Family History Family History Other Unknown family medical history Social History Social History Social History: The patient resides at [facility]. She had 4 children. Code status: Full code (state form on the chart) Smoking status: Unknown if ever smoked Alcohol intake: unknown S
--- NOTE | 2020-08-23 16:45 | P.OP_ITS ---
Procedure Note - Detailed Date of procedure: 08/23/20 Pre-op diagnosis: UTI, sacaral decubitis ulcer, Post-op diagnosis: same Procedure performed: Excision of debridement including muscle and no bone sacral area. Description of procedure: Within help of the patient's nurse we rolled the patient to left lateral decubitus position. No anesthetic was required since the area is somewhat anesthetic. The 10.5 x 11 cm wound was inspected. There are scattered areas of healthy tissue present. I debrided multiple areas of brownish muhammad tissue with a sharp debridement using a 15 blade knife and sterile scissors. Prior to any debridement I prepped with Betadine. Hemostasis was achieved with silver nitrate sticks when needed. Approximately 5 centimeter squared of necrotic tissue was removed from the wound this date. Patient to lerated the procedure well. Dressing was applied using dry 4x4s and Dakin solution will be obtained to apply dressing that will be in place until patient gets a skilled nursing and wound VAC can be applied. Implants: None Anesthesia: none Surgeon: Mat Pruett MD Taping Foreman: FRED Rivera, patient's floor nurse Estimated blood loss (mL): 5 Drains: No Packing: Yes ( sterile 4x4s) Pathology: none sent Complications: No immediate complications Condition: stable Disposition: floor Findings: areas of brownish muhammad necrotic material within the sacral wound.
[2020-08-23 17:58] LABS: SARS-CoV-2 RNA PCR Negative
[2020-08-23 18:00] LABS: Glucose Point of Care 263 (65-105)
[2020-08-23] MEDS: SERTRALINE HCL 50 MG TABLET 100 MG FEED TUBE (20:53)
[2020-08-24] VITALS (7 sets, daily range): BP systolic 109–116; BP diastolic 53–85; PULSE 79–98; RESP 16–20; TEMP 36.5–36.9; O2SAT 97–100
[2020-08-24] MEDS: guaiFENesin 200 MG/10 ML UDC FEED TUBE ×4 (01:16→17:16)
[2020-08-24 02:23] LABS: Glucose Point of Care 194 (65-105)
[2020-08-24] MEDS: INSULIN ASPART (*BKC) 100 UNITS/ML SUB-Q ×2 (07:00→12:07)
[2020-08-24 07:04] LABS: Glucose Point of Care 215 (65-105)
[2020-08-24 07:07] LABS: Alanine Aminotransferase 156 U/L (4-35); Albumin Level 2.6 g/dL (3.5-5.1); Alkaline Phosphatase 395 U/L (38-126); Anion Gap 5 mmol/L (8-16); Aspartate Amino Transferase 231 U/L (14-36); Bilirubin,Total 0.2 mg/dL (0.2-1.3); Blood Urea Nitrogen 28 mg/dL (7-17); Calcium 8.1 mg/dL (8.4-10.2); Carbon Dioxide 27 mmol/L (22-30); Chloride 104 mmol/L (98-107); Estimated CRCL calculation 96 ml/min; Estimated Glomerular Filt Rate > 60; Glucose 222 mg/dL (65-105); Potassium 4.3 mmol/L (3.4-5.0); Sodium 136 mmol/L (137-145)
[2020-08-24] MEDS: FUROSEMIDE INJ 40 MG/4 ML VIAL 20 MG IV PUSH (08:23)
[2020-08-24] MEDS: ASCORBIC ACID 500 MG TABLET 1000 MG FEED TUBE (08:24)
[2020-08-24] MEDS: FAMOTIDINE 20 MG TABLET FEED TUBE ×2 (08:24→20:42)
[2020-08-24] MEDS: amLODIPine BESYLATE 5 MG TABLET FEED TUBE (08:24)
[2020-08-24] MEDS: MAGNESIUM OXIDE 400 MG TABLET FEED TUBE ×2 (08:25→17:15)
[2020-08-24] MEDS: polyethylene glycoL 3350 17 GM POWD.PACK PO (08:25)
[2020-08-24] MEDS: SENNOSIDES 8.6 MG TABLET FEED TUBE ×2 (08:25→17:15)
[2020-08-24] MEDS: METOPROLOL TARTRATE 25 MG TABLET FEED TUBE ×2 (08:25→20:42)
[2020-08-24] MEDS: SIMETHICONE 80 MG TAB.CHEW FEED TUBE ×2 (08:26→17:15)
[2020-08-24] MEDS: INSULIN GLARGINE (*BKC) 100 UNITS/ML 24 UNITS SUB-Q (08:33)
--- NOTE | 2020-08-24 09:45 | PM.IMPN ---
Progress Note: A&P Assessment and Plan (1) Transaminitis: Code(s): R74.01 - Elevation of levels of liver transaminase levels Status: Acute Assessment and Plan: LFTs higher yesterday with AST 244 and ALT 149. Could be related to hepatic congestion from fluid overload or from the Primaxin. Crestor stopped. Lasix given. RUQ US showing mild gallbladder wall thickening most likely from underdistention but otherwise unremarkable liver. Repeat levels better today. Lasix repeated. Follow. (2) Abdominal pain: Code(s): R10.9 - Unspecified abdominal pain Status: Acute Assessment and Plan: CT on admission showing large amount of colonic diarrhea and gas. She has lower abd pain on 08/22 and KUB showing moderate to large amount of colonic stool and gas. RN instructed to give SS enema with 1 BM listed but exam much better. Miralax started and abdominal exam remains benign. (3) Acute UTI: Code(s): N39.0 - Urinary tract infection, site not specified Status: Acute Assessment and Plan: UCx 08/11 growing relatively sensitive EColi. Catheter associated chronic indwelling Dorman catheter. Completed Imipenem. Urology consulted. Renal US showing right hydronephrosis and low levels echoes in the bladder but bladder decompressed. Urology evacuated >1L from bladder yesterday. Urology recommendation for Dorman care noted and appreciated. Follow up on UCx. Will hold resuming abx at this time (4) Decubitus ulcer of sacral area: Onset Date: Unknown Qualifiers: Pressure injury stage: unstageable Qualified Code(s): L89.150 - Pressure ulcer of sacral region, unstageable Code(s): L89.159 - Pressure ulcer of sacral region, unspecified stage Status: Acute Assessment and Plan: Patient with sacral decubitus ulcer s/p debridement by surgery on 08/17 and again on 08/24. Vac therapy held. Treated with imipenem which wound infection is sensitive to. Continue appropriate wound care and pressure reduction. (5) Hypernatremia: Code(s): E87.0 - Hyperosmolality and hypernatremia Status: Resolved Assessment and Plan: Na in to the 150's early in her course but resolved now. Continue to monitor. (6) Acute respiratory failure with hypoxia: Code(s): J96.01 - Acute respiratory failure with hypoxia Status: Acute Assessment and Plan: Related to PNA. Resolved. (7) Type 2 diabetes mellitus with hyperosmolar hyperglycemic state (HHS): Code(s): E11.00 - Type 2 diabetes mellitus with hyperosmolarity without nonketotic hyperglycemic-hyperosmolar coma (NKHHC); E11.65 - Type 2 diabetes mellitus with hyperglycemia Status: Acute Assessment and Plan: The patient's blood glucose was reviewed on / Glucose remains poorly controlled. Continue AccuCheks covering with sliding scale. Hypoglycemia protocol available as needed. Advance Lantus again (8) Altered mental status: Qualifiers: Altered mental status type: unspecified Qualified Code(s): R41.82 - Altered mental status, unspecified Code(s): R41.82 - Altered mental status, unspecified Status: Resolved Assessment and Plan: Likely secondary to sepsis, electrolyte abnormality and infection. Improved. (9) Sepsis: Qualifiers: Sepsis acute organ dysfunction status: unspecified Sepsis type: sepsis due to unspecified organism Qualified Code(s): A41.9 - Sepsis, unspecified organism Code(s): A41.9 - Sepsis, unspecified organism Status: Acute Assessment and Plan: Related to PNA and UTI and also probably from decubitus ulcer. Improved on Imipenem and appropriate wound care. Off abx now. (10) Pneumonia: Qualifiers: Laterality: unspecified laterality Lung location: unspecified part of lung Pneumonia type: due to unspecified organism Qualified Code(s): J18.9 - Pneumonia, unspeci
[2020-08-24 11:34] LABS: Glucose Point of Care 297 (65-105)
--- NOTE | 2020-08-24 11:47 | WPDUROPN2 ---
Progress Note: A&P Assessment and Plan (1) Gorman catheter problem: Code(s): T83.9XXA - Unspecified complication of genitourinary prosthetic device, implant and graft, initial encounter Status: Acute Assessment and Plan: Resolved with catheter change and aggressive irrigation. (2) Cloudy urine: Code(s): R82.90 - Unspecified abnormal findings in urine Status: Acute Assessment and Plan: Awaiting repeat urine culture, ok to discharge to HI at anytime, treat appropriately based on culture results. May likely be d/t decrease oral intake and chronic catheterization/cystitis. Would recommend daily irrigation at the HI. Irrigate until clear QD with 60cc catheter tip syringe and NS 0.9% or Sterile Water. (3) Chronic indwelling Gorman catheter: Code(s): Z97.8 - Presence of other specified devices Status: Acute Assessment and Plan: Change gorman monthly and PRN starting 09/23/2020. Subjective Subjective Date/Time Seen: 08/24/20 11:47 Patient seems to be doing ok, urine is more clear today and yellow, less cloudy and malodorous. Catheter is draining well, no difficulty overnight, spasms or leakage around the gorman. Catheter was changed yesterday and moderate amounts of sediment were removed, followed by 1000cc of milky appearing urine output with odor. Urine was sent for re-culture as it was negative on 08/21/2020. TONE showed only cystitis. Review of Systems Review of Systems: ROS unobtainable: Yes unobtainable due to medical condition Exam Resp: Effort & Inspection: normal respiratory effort Cardio: Rate: regular rate GI: GI Palp: Yes Soft to palpation and No Tenderness to palpation present (GI) : General: Yes no CVA tenderness Urinary Catheter: Urinary Catheter: patent and draining and urine cloudy Extrem: General: no edema Objective Data Vital Signs Vital Signs: Vital Signs - 24 hr 08/23/20 14:00 08/23/20 20:00 08/23/20 20:54 Temperature 98.5 F Pulse Rate 80 80 93 Respiratory Rate 16 16 Blood Pressure 127/57 L Pulse Oximetry 99 99 08/23/20 22:00 08/24/20 06:00 08/24/20 08:25 Temperature 98.8 F 98.5 F Pulse Rate 93 93 92 Respiratory Rate 20 20 Blood Pressure 119/62 116/61 Pulse Oximetry 100 100 08/24/20 11:44 Temperature Pulse Rate Respiratory Rate Blood Pressure Pulse Oximetry 97 Intake/Output Intake/Output: Intake & Output 08/21/20 08/22/20 08/23/20 08/24/20 23:59 23:59 23:59 23:59 Intake Total 2440 1680 1280 Output Total 1235 366 3470 600 Balance 540 7417 -3538 -028 Meds/Results Medications: Active Medications Generic Name Dose Route Start Last Admin Trade Name Freq PRN Reason Stop Dose Admin Acetaminophen 650 mg 08/23/20 01:07 Acetaminophen Elixir 325 Mg/10.15 Ml Udc PO Q6H PRN Mild Pain (1-3) or Fever Al Hydrox/Mg Hydrox/Simethicone 30 ml 08/12/20 08:31 Mag Hydrox/Al Hydrox/Simeth 30 Ml Udc FEED TUBE Q6H PRN Dyspepsia Amlodipine Besylate 5 mg 08/12/20 09:00 08/24/20 08:24 Amlodipine Besylate 5 Mg Tablet FEED TUBE 5 mg DAILY MIK Administration Ascorbic Acid 1,000 mg 08/12/20 09:00 08/24/20 08:24 Ascorbic Acid 500 Mg Tablet FEED TUBE 09/11/20 09:01 1,000 mg DAILY MIK Administration Aspirin 81 mg 08/12/20 09:00 08/20/20 08:45 Aspirin 81 Mg Chewable Tablet XX 81 mg DAILY MIK Administration Bisacodyl 10 mg 08/12/20 08:12 Bisacodyl 10 Mg Suppository RECTAL DAILY PRN Constipation Clopidogrel Bisulfate 75 mg 08/12/20 09:00 08/20/20 08:44 Clopidogrel Bisulfate 75 Mg Tablet FEED TUBE 75 mg DAILY MIK Administration Dextrose 12.5 gm 08/12/20 08:17 Dextrose 50% 25 Gm/50 Ml Syringe IV PUSH PRN PRN Hypoglycemia Protocol Famotidine 20 mg 08/12/20 09:00 08/24/20 08:24 Famotidine 20 Mg Tablet FEED TUBE 20 mg Q12HR MIK Administration Glucagon 1 mg 08/12/20 08:17 Glucagon For Inj 1 Mg
[2020-08-24] MEDS: WATER FOR IRRIGATION, STERILE 1,000 ML BOTTLE 1000 ML (17:59)
--- NOTE | 2020-08-24 18:00 | PC.NURSE ---
Noted 250ml output from gorman, reported patient had 2800mls out yesterday. Irrigated gorman w/60ml sterile water on gently pull removed large mucus plug, gorman patient drained another 550ml keiko urine. Dr. Gill made aware, orders received to irrigate PRN.
[2020-08-24 18:08] LABS: Glucose Point of Care 144 (65-105)
[2020-08-24] MEDS: SERTRALINE HCL 50 MG TABLET 100 MG FEED TUBE (20:42)
[2020-08-25 00:27] LABS: Glucose Point of Care 145 (65-105)
[2020-08-25] MEDS: guaiFENesin 200 MG/10 ML UDC FEED TUBE ×5 (00:41→23:24)
[2020-08-25 05:50] VITALS: BP 130/70; PULSE 91; RESP 18; TEMP 36.6; O2SAT 96
[2020-08-25 06:20] LABS: Basophils Percent Auto 0.4 % (0.2-1.2); Eosinophils Absolute Auto 0.1 K/mm3 (0-0.3); Eosinophils Percent Auto 1.4 % (0-4.4); Hematocrit 27.9 % (37.0-47.0); Hemoglobin 8.3 g/dL (12.0-15.0); Immature Granulocyte Absolute 0.09 K/mm3 (0.00-0.031); Immature Granulocyte Percent A 1.1 % (0-0.5); Lymphocytes Absolute Auto 2.41 K/mm3 (0.9-3.2); Mean Corpuscular HGB Conc 29.7 g/dl (32-36); Mean Corpuscular Hemoglobin 25.8 pg (26-34); Mean Corpuscular Volume 86.6 fl (80-100); Monocytes Absolute Auto 0.7 K/mm3 (0.1-0.6); Monocytes Percent Auto 9.1 % (2.6-8.5); Neutrophils Absolute Auto 4.7 K/mm3 (1.3-6.7); Platelet Count Result 273 k/mm3 (150-375); Red Blood Count 3.22 M/mm3 (4.2-5.4); Red Cell Distribution Width 19.5 % (11.5-14.5)
[2020-08-25 06:48] LABS: Glucose Point of Care 184 (65-105)
[2020-08-25 06:51] LABS: Hypochromasia 1+ (NORMAL); Ovalocytes 1+ (NORMAL); Platelet Estimate Adequate (Adequate); Tear Drop Cells 1+ (NORMAL)
[2020-08-25 07:00] LABS: Alanine Aminotransferase 165 U/L (4-35); Albumin Level 2.6 g/dL (3.5-5.1); Alkaline Phosphatase 349 U/L (38-126); Anion Gap 3 mmol/L (8-16); Aspartate Amino Transferase 300 U/L (14-36); Bilirubin,Total 0.2 mg/dL (0.2-1.3); Blood Urea Nitrogen 27 mg/dL (7-17); Calcium 8.3 mg/dL (8.4-10.2); Carbon Dioxide 31 mmol/L (22-30); Chloride 104 mmol/L (98-107); Estimated CRCL calculation 117 ml/min; Estimated Glomerular Filt Rate > 60; Glucose 182 mg/dL (65-105); Sodium 138 mmol/L (137-145)
[2020-08-25 07:08] LABS: Potassium 3.8 mmol/L (3.4-5.0)
[2020-08-25] MEDS: amLODIPine BESYLATE 5 MG TABLET FEED TUBE (08:43)
[2020-08-25] MEDS: ASCORBIC ACID 500 MG TABLET 1000 MG FEED TUBE (08:43)
[2020-08-25] MEDS: ASPIRIN 81 MG CHEWABLE TABLET XX (08:43)
[2020-08-25 08:44] VITALS: PULSE 84
[2020-08-25] MEDS: polyethylene glycoL 3350 17 GM POWD.PACK PO (08:44)
[2020-08-25] MEDS: MAGNESIUM OXIDE 400 MG TABLET FEED TUBE ×2 (08:44→17:17)
[2020-08-25] MEDS: SENNOSIDES 8.6 MG TABLET FEED TUBE (08:44)
[2020-08-25] MEDS: SIMETHICONE 80 MG TAB.CHEW FEED TUBE ×2 (08:44→17:18)
[2020-08-25] MEDS: FAMOTIDINE 20 MG TABLET FEED TUBE ×2 (08:44→20:23)
[2020-08-25] MEDS: METOPROLOL TARTRATE 25 MG TABLET FEED TUBE ×2 (08:44→20:24)
[2020-08-25] MEDS: INSULIN GLARGINE (*BKC) 100 UNITS/ML 28 UNITS SUB-Q (08:45)
[2020-08-25 08:57] LABS: Ammonia < 9 umol/L (9-30)
[2020-08-25 09:01] LABS: Creatine Kinase < 20 U/L (30-135)
[2020-08-25 09:04] LABS: CRP 2.4 mg/dL (<1.0)
[2020-08-25 09:11] LABS: Iron 29 ug/dL (37-170)
[2020-08-25 09:21] LABS: Percent Iron Saturation 12 % (20-50)
--- NOTE | 2020-08-25 09:47 | WPDGICN ---
Assessment and Plan Assessment and plan (1) Transaminitis: Code(s): R74.01 - Elevation of levels of liver transaminase levels Status: Acute Assessment and Plan: the possibility of a drug induced transaminitis is very likely. I will however investigate for the possibility of other chronic liver diseases. In her case NAFLD is most likely. The abnormal coagulation profile suggests some chronic hepatic impairment although her bilirubin is quite low. Will obtain serology to rule out chronic hepatitis, autoimmune liver disease, etc (2) Type 2 diabetes mellitus with hyperosmolar hyperglycemic state (HHS): Code(s): E11.00 - Type 2 diabetes mellitus with hyperosmolarity without nonketotic hyperglycemic-hyperosmolar coma (NKHHC); E11.65 - Type 2 diabetes mellitus with hyperglycemia Status: Acute Assessment and Plan: this condition simply increases the likelihood of her having NAFLD GI Consult Note Consult date/time: 08/25/20 09:47 HPI: Tara Marcano is a 69 year old female Tara Marcano is a 69 year old female with a past medical history of hypertension, CVA with expressive aphasia and dysphagia, insulin-dependent diabetes mellitus and chronic sacral decubitus ulcer who presented to the ER via EMS from [facility] due to altered mental status. The patient is reportedly alert orient x3. At the time of my evaluation the patient is alert follows commands and answers questions with head nods and will state her name. Her history is limited as she has chronic expressive aphasia. The patient evidently usually goes tube [facility]. The patient was diaphoretic unresponsive and tachycardic when EMS arrived to the assisted. She had a Dorman catheter that was placed at the assisted that contained thick milk colored sediment. The patient was satting 85% on room air when EMS arrived at the facility. A blood glucose reading obtained in route was reading as high. When asked if she is having pain the patient shakes her head no. She does report shortness of breath but is unable to provide details. She denies any cough. She denies any fevers or chills. She denies having any abdominal pain. She does have a G-tube in place and receives bolus feeds at the assisted. She denies any dysuria. She does have a chronic stage IV sacral decubitus ulcer that has a foul smell. The patient had had COVID-19 in June 2020. Patient is not on oxygen at the assisted. She was hypoxic in the field but has not had any hypoxia since arriving to the hospital. She is on 4 L nasal cannula currently. I am asked to see her today because of the increase in liver enzymes. The patient is unable to give any accurate history because of her expressive aphasia. AST an ALT are actually higher today than yesterday. She usually receives her medical care at [facility]. Consequently we do not have prior laboratory values here with which to compare. [facility] Past Medical History Medical History Cancer of left breast Chronic constipation With fecal impaction in July 2020 at [facility] Chronic indwelling Dorman catheter Since January of 2020 due to chronic urinary retention with hydronephrosis Coronary artery disease CVA (cerebral vascular accident) 2010 and in 2015 with chronic left hemiparesis, dysphagia and expressive aphasia Depression Diabetic peripheral neuropathy Essential hypertension Hyperlipidemia Infection with multi-drug resistant microorganisms UTI Kidney stones Pneumonia due to COVID-19 virus July 10, 2020 Sacral decubitus ulcer, stage IV Type 2 diabetes mellitus Vitamin D deficiency Surgical History Surgical History Gastrostomy tube in place History of left mastectomy 2010 History of partial thyroidectomy 1993 S/P ureteral stent placement
[2020-08-25 09:48] LABS: Hepatitis B Surface Antigen Negative (Negative)
[2020-08-25 09:54] LABS: HAV RESULT Negative (Negative); Hepatitis B Core IgM Result Negative (Negative)
[2020-08-25 10:05] LABS: Hepatitis B Surface Anti Res Negative; Hepatitis C Virus Antibody Negative (Negative)
[2020-08-25 10:06] LABS: Folic Acid 11.5 ng/mL (2.76->20)
--- NOTE | 2020-08-25 11:10 | PCNFU ---
Nutrition Follow-Up Complete: Suboptimal nutritional support as related decub ulcer as evidenced by tube feedings at Glucerna 1.2 at 10 ml/hr. Goal: Meet estimated nutritional needs Patient has met current goal. No new goal. Pt current nutrition is Glucerna 1.2 at 70 ml/hr Last recorded weight is 82.2 kg,stable. Bowel Motility: +BM reported 3/3 Labs Reviewed:Alb 2.6,Hct 27.9,Hgb 8.3 Meds Noted:Lantus,Norvasc,Vit C, Mylicon,Miralax Additional Notes: Nutrition follow up today. Spoke with nursing today regarding tube feedings. Patient remains on Glucerna 1.2 at 70 ml/hr and tolerating. Current tube feedings are providing patient with 1848 kcals/92 gms protein/1240 ml water. Wounds noted: stage 4 PU to sacrum with wound vac. Will monitor every Friday and Friday.
[2020-08-25 11:14] LABS: INR 1.3; Prothrombin Time 16.7 Seconds (11.1-14.7)
[2020-08-25 11:49] LABS: Free T4 Free Thyroxine Reflex 0.49 ng/dL (0.78-2.19)
[2020-08-25 12:41] LABS: Glucose Point of Care 153 (65-105)
[2020-08-25] MEDS: CLOPIDOGREL BISULFATE 75 MG TABLET FEED TUBE (12:47)
[2020-08-25 14:00] VITALS: BP 132/85; PULSE 77; RESP 18; TEMP 36.2; O2SAT 99
--- NOTE | 2020-08-25 15:49 | PM.DS ---
DS: Admitting Diagnosis Admitting Diagnosis Admitting Diagnosis: Hypoxia and altered mental status DS: Discharge Diagnosis Discharge Diagnosis (1) Transaminitis: Code(s): R74.01 - Elevation of levels of liver transaminase levels Status: Acute Assessment and Plan: AST 527 and ALT 292 on admission. Levels trended down before worsening again. Could be related to hepatic congestion from fluid overload or from the Primaxin. Crestor stopped. Lasix given. RUQ US showing mild gallbladder wall thickening most likely from underdistention but otherwise unremarkable liver. Workup thus far unrevealing with nai B12, folate. Iron studies more consistent with anemia of chronic disease. CRP 2.4 TSH elevated and Synthroid started. Spoke with GI he fell further evaluation could be done as an outpatient since patient is asymptomatic from this. (2) Abdominal pain: Code(s): R10.9 - Unspecified abdominal pain Status: Acute Assessment and Plan: CT on admission showing large amount of colonic diarrhea and gas. She has lower abd pain on 08/22 and KUB showing moderate to large amount of colonic stool and gas. Enema given and started on Miralax. Symptoms have improved. (3) Acute UTI: Code(s): N39.0 - Urinary tract infection, site not specified Status: Acute Assessment and Plan: UCx 08/11 growing relatively sensitive EColi. Catheter associated chronic indwelling Dorman catheter. Completed Imipenem. Urology consulted. Renal US showing right hydronephrosis and low levels echoes in the bladder but bladder decompressed. Urology evacuated >1L from bladder. Urology recommendation for Dorman care noted and appreciated. UCx 08/21 negative. (4) Decubitus ulcer of sacral area: Onset Date: Unknown Qualifiers: Pressure injury stage: unstageable Qualified Code(s): L89.150 - Pressure ulcer of sacral region, unstageable Code(s): L89.159 - Pressure ulcer of sacral region, unspecified stage Status: Acute Assessment and Plan: Patient with sacral decubitus ulcer s/p debridement by surgery on 08/17 and again on 08/24. Vac therapy held. Treated with imipenem which wound infection is sensitive to. We continued appropriate wound care and pressure reduction. (5) Hypernatremia: Code(s): E87.0 - Hyperosmolality and hypernatremia Status: Resolved Assessment and Plan: Na in to the 150's early in her course but resolved now. Continue to monitor. (6) Acute respiratory failure with hypoxia: Code(s): J96.01 - Acute respiratory failure with hypoxia Status: Acute Assessment and Plan: Related to PNA. Resolved. (7) Type 2 diabetes mellitus with hyperosmolar hyperglycemic state (HHS): Code(s): E11.00 - Type 2 diabetes mellitus with hyperosmolarity without nonketotic hyperglycemic-hyperosmolar coma (NKHHC); E11.65 - Type 2 diabetes mellitus with hyperglycemia Status: Acute Assessment and Plan: The patient's blood glucose was monitored closely Glucose remained poorly controlled so Lantus advanced. Monitored with AccuCheks covering with sliding scale. Hypoglycemia protocol available as needed. (8) Altered mental status: Qualifiers: Altered mental status type: unspecified Qualified Code(s): R41.82 - Altered mental status, unspecified Code(s): R41.82 - Altered mental status, unspecified Status: Resolved Assessment and Plan: Likely secondary to sepsis, electrolyte abnormality and infection. Improved. (9) Sepsis: Qualifiers: Sepsis acute organ dysfunction status: unspecified Sepsis type: sepsis due to unspecified organism Qualified Code(s): A41.9 - Sepsis, unspecified organism Code(s): A41.9 - Sepsis, unspecified organism Status: Acute Assessment and Plan: Related to PNA and UTI and also probably from decubitus ulcer. Improved on Imipe
--- NOTE | 2020-08-25 16:43 | PC.NURSE ---
Report called to Johnna at [facility].
[2020-08-25 17:41] LABS: Glucose Point of Care 107 (65-105)
[2020-08-25] MEDS: ACETAMINOPHEN ELIXIR 325 MG/10.15 ML UDC 650 MG PO ×2 (18:27→23:24)
[2020-08-25 19:55] VITALS: PULSE 72; RESP 18; O2SAT 99
[2020-08-25] MEDS: SERTRALINE HCL 50 MG TABLET 100 MG FEED TUBE (20:23)
[2020-08-25 20:24] VITALS: PULSE 72
[2020-08-25 21:47] VITALS: BP 116/50; PULSE 66; RESP 20; TEMP 36.3; O2SAT 97
[2020-08-25 23:41] LABS: Glucose Point of Care 166 (65-105)
[2020-08-26 05:35] VITALS: BP 106/50; PULSE 85; RESP 18; TEMP 36.3; O2SAT 100
[2020-08-26 06:04] LABS: Glucose Point of Care 178 (65-105)
[2020-08-26] MEDS: guaiFENesin 200 MG/10 ML UDC FEED TUBE ×2 (06:05→13:16)
[2020-08-26] MEDS: LEVOTHYROXINE SODIUM 25 MCG TABLET FEED TUBE (06:07)
[2020-08-26] MEDS: ACETAMINOPHEN ELIXIR 325 MG/10.15 ML UDC 650 MG PO (06:54)
[2020-08-26 08:00] VITALS: PULSE 70; RESP 18; O2SAT 100
[2020-08-26] MEDS: ASCORBIC ACID 500 MG TABLET 1000 MG FEED TUBE (10:18)
[2020-08-26] MEDS: SIMETHICONE 80 MG TAB.CHEW FEED TUBE (10:18)
[2020-08-26] MEDS: ASPIRIN 81 MG CHEWABLE TABLET XX (10:18)
[2020-08-26] MEDS: FAMOTIDINE 20 MG TABLET FEED TUBE (10:18)
[2020-08-26] MEDS: MAGNESIUM OXIDE 400 MG TABLET FEED TUBE (10:18)
[2020-08-26] MEDS: amLODIPine BESYLATE 5 MG TABLET FEED TUBE (10:18)
[2020-08-26] MEDS: CLOPIDOGREL BISULFATE 75 MG TABLET FEED TUBE (10:18)
[2020-08-26 10:19] VITALS: PULSE 70
[2020-08-26] MEDS: SENNOSIDES 8.6 MG TABLET FEED TUBE (10:19)
[2020-08-26] MEDS: METOPROLOL TARTRATE 25 MG TABLET FEED TUBE (10:19)
[2020-08-26] MEDS: polyethylene glycoL 3350 17 GM POWD.PACK PO (10:19)
[2020-08-26] MEDS: INSULIN GLARGINE (*BKC) 100 UNITS/ML 28 UNITS SUB-Q (10:24)
[2020-08-26 12:26] LABS: Glucose Point of Care 282 (65-105)
[2020-08-26] MEDS: INSULIN ASPART (*BKC) 100 UNITS/ML SUB-Q (13:15)
--- NOTE | 2020-08-26 13:57 | PM.IMPN ---
Progress Note: A&P Assessment and Plan (1) Abdominal pain: Code(s): R10.9 - Unspecified abdominal pain Status: Acute (2) Decubitus ulcer of sacral area: Onset Date: Unknown Qualifiers: Pressure injury stage: unstageable Qualified Code(s): L89.150 - Pressure ulcer of sacral region, unstageable Code(s): L89.159 - Pressure ulcer of sacral region, unspecified stage Status: Acute (3) Hypernatremia: Code(s): E87.0 - Hyperosmolality and hypernatremia Status: Resolved (4) Acute respiratory failure with hypoxia: Code(s): J96.01 - Acute respiratory failure with hypoxia Status: Acute (5) Type 2 diabetes mellitus with hyperosmolar hyperglycemic state (HHS): Code(s): E11.00 - Type 2 diabetes mellitus with hyperosmolarity without nonketotic hyperglycemic-hyperosmolar coma (NKHHC); E11.65 - Type 2 diabetes mellitus with hyperglycemia Status: Acute (6) Altered mental status: Qualifiers: Altered mental status type: unspecified Qualified Code(s): R41.82 - Altered mental status, unspecified Code(s): R41.82 - Altered mental status, unspecified Status: Resolved (7) Sepsis: Qualifiers: Sepsis acute organ dysfunction status: unspecified Sepsis type: sepsis due to unspecified organism Qualified Code(s): A41.9 - Sepsis, unspecified organism Code(s): A41.9 - Sepsis, unspecified organism Status: Acute (8) Pneumonia: Qualifiers: Laterality: unspecified laterality Lung location: unspecified part of lung Pneumonia type: due to unspecified organism Qualified Code(s): J18.9 - Pneumonia, unspecified organism Code(s): J18.9 - Pneumonia, unspecified organism Status: Acute (9) Acute UTI: Code(s): N39.0 - Urinary tract infection, site not specified Status: Acute (10) Chronic constipation: Code(s): K59.09 - Other constipation Status: Inactive (11) DVT prophylaxis: Code(s): Z29.9 - Encounter for prophylactic measures, unspecified Status: Acute Additional Plan Patient was discharged yesterday but no ambulance available for transport. She was held overnight. She remained hemodynamically stable. Urine culture August 23 growing 100K colonies of Jenae glabrata most likely colonization or contaminant. Urine culture was negative on August 21. Dorman catheter instructions were provided at discharge. Patient remains stable [facility]. Subjective Date/time seen: 08/26/20 13:57 Interval history: Date of service 08/26 69yo female with hx of HTN, CVA with expressive aphasia and dysphagia, insulin-dependent diabetes mellitus and chronic sacral decubitus ulcer who presented to the ER via EMS from [facility] due to altered mental status. Patient is alert but unable to provide history due to her expressive aphasia. More talkative today. Review of Systems Review of Systems: ROS unobtainable: Yes unobtainable due to medical condition Exam Narrative: Exam Narrative: AF 97.3 106/50 70 18 100% ra Gen - NARD lying semi-recumbent in bed Chest - lungs clear anteriorly, nml RR CV - RRR S1/S2 Abd - Soft, +BS, GTube site clean and dry, NT/ND - Dorman secured draining yellow urine Ext - No pedal edema Neuro - Alert. Tracks at times. Expressive aphasia but tries to talk at times. left hemiplegia. Skin - Warm and dry Objective Data Vital Signs Vital Signs: Vital Signs - 24 hr 08/25/20 14:00 08/25/20 19:55 08/25/20 20:24 Temperature 97.2 F L Pulse Rate 77 72 72 Respiratory Rate 18 18 Blood Pressure 132/85 Pulse Oximetry 99 99 08/25/20 21:47 08/26/20 05:35 08/26/20 08:00 Temperature 97.4 F L 97.3 F L Pulse Rate 66 85 70 Respiratory Rate 20 18 18 Blood Pressure 116/50 L 106/50 L Pulse Oximetry 97 100 100 08/26/20 10:19 Temperature Pulse Rate 70 Respiratory Rate Bl
--- NOTE | 2020-08-28 06:38 | PC.NURSE ---
Urine culture shows normal colonizers. Dr. Ezio engle.
[2020-08-29 03:54] LABS: Hepatitis B Core Ab Total Nonreactive (Nonreactive)
--- NOTE | 2020-09-01 08:15 | PC.NURSE ---
NISHANT is negative, HEP B core is negative.
--- NOTE | 2020-09-07 13:44 | PC.NURSE ---
A!AT is PI*MM. Dr. Holguin aware.
== END 2020-08-26 13:15 | DRG 853 ==
LOC: ANHED 08-12 00:49 → ANHICU 08-12 08:32 → ANH3MEDSUR 08-14 10:10 → ANHICU 08-28 15:48
PROVIDERS: Family Medicine; Internal Medicine Critical Care Medicine; Internal Medicine Gastroenterology; Admitting Provider Internal Medicine; Emergency Provider Emergency Medicine; Visit Provider Internal Medicine
DX: A41.9 Sepsis, unspecified organism (principal); L89.154 Pressure ulcer of sacral region, stage 4; E11.00 Type 2 diabetes mellitus with hyperosmolarity without nonketotic hyperglycemic-hyperosmolar coma (NKHHC); J96.01 Acute respiratory failure with hypoxia; J18.9 Pneumonia, unspecified organism; T83.511A Infection and inflammatory reaction due to indwelling urethral catheter, initial encounter; N17.9 Acute kidney failure, unspecified; I69.354 Hemiplegia and hemiparesis following cerebral infarction affecting left non-dominant side; E87.0 Hyperosmolality and hypernatremia; T83.9XXA Unspecified complication of genitourinary prosthetic device, implant and graft, initial encounter; N39.0 Urinary tract infection, site not specified; B96.20 Unspecified Escherichia coli [E. coli] as the cause of diseases classified elsewhere; D63.8 Anemia in other chronic diseases classified elsewhere; R82.90 Unspecified abnormal findings in urine; Z20.828 Contact with and (suspected) exposure to other viral communicable diseases; R41.82 Altered mental status, unspecified; I69.320 Aphasia following cerebral infarction; I69.391 Dysphagia following cerebral infarction; R13.10 Dysphagia, unspecified; R10.9 Unspecified abdominal pain; K59.09 Other constipation; E11.42 Type 2 diabetes mellitus with diabetic polyneuropathy; E11.65 Type 2 diabetes mellitus with hyperglycemia; E03.9 Hypothyroidism, unspecified; R74.01 Elevation of levels of liver transaminase levels; I25.10 Atherosclerotic heart disease of native coronary artery without angina pectoris; I10 Essential (primary) hypertension; E55.9 Vitamin D deficiency, unspecified; E78.5 Hyperlipidemia, unspecified; Z79.02 Long term (current) use of antithrombotics/antiplatelets; Z79.4 Long term (current) use of insulin; Z79.82 Long term (current) use of aspirin; Z79.899 Other long term (current) drug therapy; Z86.16 Personal history of COVID-19; Z85.3 Personal history of malignant neoplasm of breast; Z88.0 Allergy status to penicillin; Z93.1 Gastrostomy status
CPT/HCPCS: 36415; 36430; 36600; 70450; 71045; 74018; 74019; 74177; 76705; 76775; 80048; 80053; 81001; 82010; 82104; 82140; 82550; 82565; 82607; 82728; 82746; 82805; 82948; 83036; 83540; 83550; 83605; 83690; 83735; 84100; 84439; 84443; 84484; 85025; 85027; 85610; 85730; 86038; 86140; 86704; 86705; 86706; 86709; 86803; 86850; 86900; 86901; 86923; 87040; 87070; 87077; 87086; 87088; 87186; 87205; 87340; 93005; 96361; 96365; 96367; 96375; 99285; A9270; C9803; J0131; J0692; J0743; J1815; J1940; J1956; J3370; J3480; J7030; J7050; J7070; P9016; Q9967; U0003; U0005

== ENCOUNTER 2020-09-13 09:58 | Inpatient (IN) | payer MEDICARE, MEDICAID, SELFPAY ==
[2020-09-13] VITALS (40 sets, daily range): BP systolic 73–126; BP diastolic 47–67; PULSE 112–135; RESP 0–46; TEMP 36.7–37.8; O2SAT 88–99; BMI 25.4
--- NOTE | ~2020-09-13 | CT_ITS ---
EXAMINATION: CT abdomen pelvis wo con DATE: 09/15/2020 09:51 INDICATION: Bilateral hydronephrosis TECHNIQUE: Computed tomography (CT) of the abdomen and pelvis was performed without intravenous contr ast. Automated exposure control and iterative reconstruction technique were employed. Exam dose: 901 .42 mGy-cm total exam DLP. COMPARISON: 09/09/2020 CT abdomen pelvis with IV contrast material 08/23/2020 right upper quadrant abdominal ultrasound FINDINGS: Prominent bilateral lower lobe patchy consolidating infiltrates with air bronchograms. Infi ltrate at the included lingular base. Cardiomegaly. Coronary artery calcification. No pericardial or pleural effusion. Status post left mastectomy. There is hyperdense material within the dependent aspect of the gallbladder; gallstones were not dete cted on 09/19/2020 right upper quadrant ultrasound examination. No hepatic, splenic, pancreatic, adrenal space-occupying mass lesion is evident. No bile duct or panc reatic duct dilatation. Bilateral hydroureteronephrosis and urinary bladder distention are resolved since 09/13/2020. There is a Dorman catheter within the urinary bladder. Bladder wall thickening and pericystic soft tissue stra nding suggesting cystitis. Emphysematous changes of the urinary bladder wall are substantially improv ed 09/13/2020. Uterus and adnexal areas are unremarkable. There is extensive calcification of the abdominal aorta and prominent calcifications at the origins o f the celiac and superior mesenteric as well as renal arteries. No abdominal aortic aneurysm. Iliac a nd femoral extensive arterial calcifications. No intraperitoneal or retroperitoneal or pelvic mass lesion or adenopathy or ascites is noted. There is edema of the abdominal and pelvic tabor and particularly the thighs. Gastrostomy tube in the stomach. No bowel obstruction is evident. No intraperitoneal free air. There is distention of the rectosigmoid colon with liquid stool. Included skeletal structures are unremarkable. IMPRESSION: Resolution of bilateral hydroureteronephrosis and improvement of emphysematous cystitis of the urinary bladder. There is bladder wall thickening and pericystic stranding suggesting cystitis Status post left mastectomy Cardiomegaly Emphysema Gastrostomy tube in stomach Reviewed, dictated and finalized at [facility]. Reviewed, dictated and finalized at [facility]. IMPRESSION: Resolution of bilateral hydroureteronephrosis and improvement of e mphysematous cystitis of the urinary bladder. There is bladder wall thickening and pericystic stranding suggesting cystitis Status post left mastectomy Cardiomegaly Emphysema Gastrostomy tube in stomach
--- NOTE | ~2020-09-13 | XR_ITS ---
XR chest 1V portable 09/13/2020 10:51 Indication: Cough and weakness Procedure: AP portable chest Comparison: 08/22/2020 Findings: Bibasilar airspace disease, compatible with pneumonia. No significant pleural effusion. No pneumothorax. No acute osseous abnormality. Impression: 1: Bibasilar airspace disease, compatible with pneumonia. Reviewed, dictated and finalized at [facility]. Impression: 1: Bibasilar airspace disease, compatible with pneumonia.
--- NOTE | ~2020-09-13 | XR_ITS ---
XR chest 1V portable 09/14/2020 08:15 Indication: Respiratory failure Procedure: AP portable chest Comparison: 09/13/2020 Findings: There are developing infiltrates of the right upper and left lower lung zone consistent wit h pneumonia. Heart size upper normal. No pleural effusion or pneumothorax. No acute osseous abnormali ty. Impression: 1: Developing infiltrates of the right upper and left lower lung zone, compatible with pneumonia. Reviewed, dictated and finalized at [facility]. Impression: 1: Developing infiltrates of the right upper and left lower lung zone, compatib le with pneumonia.
--- NOTE | ~2020-09-13 | CT_ITS ---
EXAMINATION: CT abdomen pelvis w con DATE: 09/13/2020 11:35 INDICATION: Abdominal pain TECHNIQUE: Computed tomography (CT) of the abdomen and pelvis was performed with 100 mL Omnipaque-350 intravenous contrast. Automated exposure control and iterative reconstruction technique were employe d. The dose-length product was 912.01 mGy-cm. COMPARISON: CT dated 08/11/2020 FINDINGS: Improvement in prior consolidation with residual centrilobular predominant opacities in the basilar s egments of the bilateral lower lobes, left greater than right, consistent with improving pneumonia. C alcified right middle lobe nodule consistent with old granulomatous disease. Prominent wall thickenin g of the distal esophagus which is new since the recent prior study suggesting esophagitis. Heart siz e is normal. Atherosclerotic coronary artery calcification and mitral annular calcification. No peric ardial or pleural effusion. Liver, gallbladder, spleen, pancreas and bilateral adrenal glands are normal. Large amount of stool s cattered throughout the colon. No bowel obstruction. Appendix is normal. There is a 3.0 x 1.5 cm kolton on of decreased attenuation in the fundus of the uterus which previously appeared to demonstrate high er attenuation versus enhancement. Bilateral adnexa are unremarkable. No pathologically enlarged abdo jeanie or pelvic lymphadenopathy. Small fat-containing left inguinal hernia. There is a deep decubitus ulcer at the medial side of the right buttock which extends to contact the coccyx and caudal margin of the sacrum raising concern for osteomyelitis but without evident osteolysis to more specifically s uggest this. Tiny focus of gas within a vein draining into the left common femoral vein likely relate d to IV placement. Interval increase in previously mild, now moderate bilateral hydroureteronephrosis. Gas and a Dorman c atheter are again seen within the bladder which is now distended with diffuse intramural emphysema re latively sparing portion of the anterior wall. Multiple additional tiny foci of gas along a curviline ar density in the lumen of the bladder with with configuration suggesting emphysema within a sloughed portion of the anterior wall of the bladder. Appearance is concerning for necrotizing cystitis. Ther e is also extraluminal extension of multiple small foci of gas into the soft tissues surrounding the urethra and into the soft tissues of the bilateral labial minora. Minimal amount of likely reactive f ree fluid in the pelvis. No abscess or free intraperitoneal gas. IMPRESSION: 1. Diffuse intramural emphysema of the bladder with additional small amount of extraluminal gas near the base of the bladder and suggestion of a sloughed portion of the bladder wall which is most concer eleni for emphysematous cystitis although could potentially represent sequela of mucosal injury from t he Dorman catheter. Dr. Moyer discussed these findings with Dr. Galloway at 12:05 PM. 2. Worsening now moderate severity bilateral hydroureteronephrosis likely related to obstruction at t he level of the bladder or bilateral ureterovesicular junctions. 3. Chronic right sacral decubitus ulcer which extends to contact the bone raising concern for osteoar thritis although there is no evident osteolysis to more specifically suggest this. 4. New wall thickening of the distal esophagus concerning for esophagitis which could be infectious o r due to reflux. 5. Improving bibasilar pneumonia. 6. 3.0 x 1.5 cm region of decreased attenuation in the fundus of the uterus. Differential includes fl uid, endometrial hyperplasia or malignancy, endometrial polyp or submucosal fibroid. When clinically improved consider follow-up pelvic ultrasound or hysteroscopy for further evaluation. 7. Small fat-containing left inguinal hernia. Reviewed, dictated and finalized at [facility].
--- NOTE | ~2020-09-13 | CT_ITS ---
EXAMINATION: CT brain wo con DATE: 09/13/2020 11:35 INDICATION: Altered mental state TECHNIQUE: Computed tomography (CT) of the head was performed without intravenous contrast. The mA wa s adjusted according to patient size. Iterative reconstruction technique was employed. Exam dose: 68 1.00 mGy-cm total exam DLP. COMPARISON: August 11, 2020 CT brain FINDINGS: Prominent bilateral vertebral artery and carotid siphon internal carotid artery calcificati ons. There is nonspecific diminished attenuation of the subcortical and periventricular cerebral white mat ter, likely due to chronic small vessel ischemic changes. There is no evidence of interval cerebrovascular accidents since August 11, 2020. No intracranial mass lesion or hemorrhage, midline shift or mass effect effect. No subdural or epidural hematoma. No fracture or bone destruction of the cranial vault. There is soft tissue thickening of the left ethmoid air cells. Geno bullosa of the middle nasal tur binates. There is a fluid level in the left sphenoid sinus. The mastoid air cells are normally developed and aerated bilaterally. IMPRESSION: Cerebral atherosclerosis and chronic small vessel ischemic changes of the cerebral white matter No acute intracranial finding or significant change since August 11, 2020 Reviewed, dictated and finalized at [facility]. Reviewed, dictated and finalized at [facility].
--- NOTE | 2020-09-13 10:02 | ECG_ITS ---
Measurements Intervals [place] Rate: 130 P: 70 AR: 124 QRS: -47 QRSD: 89 T: 115 QT: 333 QTc: 490 Interpretive Statements SINUS TACHYCARDIA LEFT ANTERIOR FASCICULAR BLOCK CANNOT RULE OUT SEPTAL INFARCT, AGE INDETERMINATE BORDERLINE ST-T WAVE ABNORMALITY- LAT/HIGH LAT LEADS ABNORMAL ECG Electronically Signed On 09-13-2020 13:04:42 CDT by Misael Vernon D.O.
[2020-09-13 10:31] LABS: Alveolar/Arterial O2 Gradient 122.9 mmHg; Base Excess ABG 2.8 mEq/l (+/-2.0); Fractional Inspired Oxygen 30 %; HCO3 ABG 23.2 mEq/l (22.0-26.0); Oxygen Content ABG 13.8 %vol (16.0-22.0); Oxygen Saturation ABG 95.8 % (95.0-100.0); Oxyhemoglobin 92.5 % THb (90.0-100.0); PO2 ABG 63.6 mmHg (80.0-100.0); PO2 FiO2 Ratio Arterial Blood 2.12 %; Total Hemoglobin 10.6 g/dL (12.0-18.0)
[2020-09-13 10:34] LABS: Device NASAL CANNULA; Liters per Minute 2.5 LPM; Modified Allen's Test Pass; PCO2 ABG 23.3 mmHg (35.0-45.0); Site Drawn LEFT RADIAL; pH ABG 7.616 (7.350-7.450)
[2020-09-13] MEDS: SODIUM CHLORIDE 0.9% IV 1,000 ML 999 ML IV CONT ×2 (10:34→11:16)
[2020-09-13 10:47] LABS: Hematocrit 36.9 % (37.0-47.0); Hemoglobin 10.5 g/dL (12.0-15.0); Mean Corpuscular HGB Conc 28.5 g/dl (32-36); Mean Corpuscular Hemoglobin 25.5 pg (26-34); Mean Corpuscular Volume 89.8 fl (80-100); Mean Platelet Volume 11.5 fl (7.4-10.4); Platelet Count Result 463 k/mm3 (150-375); Red Blood Count 4.11 M/mm3 (4.2-5.4); Red Cell Distribution Width 19.4 % (11.5-14.5); White Blood Count 18.6 K/mm3 (4.5-10.0)
[2020-09-13 10:56] LABS: INR 1.4; Prothrombin Time 18.2 Seconds (11.1-14.7)
[2020-09-13 10:57] LABS: Partial Thromboplastin Time 31.3 SECONDS (22.3-36.8)
[2020-09-13 11:03] LABS: Albumin Level 3.6 g/dL (3.5-5.1); Alkaline Phosphatase 598 U/L (38-126); Anion Gap 13 mmol/L (8-16); Aspartate Amino Transferase 184 U/L (14-36); Bilirubin,Total 0.2 mg/dL (0.2-1.3); Blood Urea Nitrogen 65 mg/dL (7-17); Calcium 9.5 mg/dL (8.4-10.2); Carbon Dioxide 27 mmol/L (22-30); Chloride 114 mmol/L (98-107); Estimated CRCL calculation 41 ml/min; Estimated Glomerular Filt Rate 60; Glucose 558 mg/dL (65-105); Potassium 4.3 mmol/L (3.4-5.0); Sodium 154 mmol/L (137-145)
[2020-09-13 11:08] LABS: Lymphocytes Absolute Manual 2.04 K/mm3 (1.1-4.5); Monocytes Absolute Manual 0.93 K/mm3 (0.1-0.90); Monocytes Percent Manual 5 % (3-9); Neutrophils Percent Manual 84 % (46-73); Total Cells Counted 100
[2020-09-13 11:09] LABS: Macrocytosis 1+ (NORMAL); Platelet Estimate Increased (Adequate); Tear Drop Cells 1+ (NORMAL)
[2020-09-13 11:17] LABS: Alanine Aminotransferase 199 U/L (4-35)
--- NOTE | 2020-09-13 12:01 | PC.NURSE ---
Dorman catheter replaced. Approx 1300 ml of dark bloody urine returned. Incontinent of liquid brown stool.
[2020-09-13 12:42] LABS: Glucose Point of Care 474 (65-105)
--- NOTE | 2020-09-13 12:51 | ED.GENADULT ---
HPI - General Adult General Chief complaint: GI Bleed Stated complaint: AMS Source: RN notes reviewed History of Present Illness HPI narrative: Patient presents to emergency department from [facility] via [facility] for blood in her stool per the staff they noted blood in the patient's diaper with concerns of blood in her stool. Per staff patient is also less alert today normal ANO x2 and only and on x1 today patient unable to give full past medical history:[] Social history:[] Related Data Home Medications Medication Instructions Recorded Confirmed amlodipine [Norvasc] 5 mg FEEDING TUBE DAILY 08/11/20 08/12/20 aspirin 81 mg FEEDING TUBE DAILY 08/11/20 08/12/20 bisacodyl 10 mg RECTAL DAILY PRN 08/11/20 08/12/20 clopidogrel [Plavix] 75 mg FEEDING TUBE DAILY 08/11/20 08/12/20 insulin lispro See Rx Instructions .ROUTE .COMPLEX 08/11/20 08/12/20 metoprolol tartrate [Lopressor] 25 mg FEEDING TUBE BID 08/11/20 08/12/20 polyethylene glycol 3350 [Miralax] 17 g FEEDING TUBE DAILY 08/11/20 08/12/20 sennosides [Senokot] 8.6 mg FEEDING TUBE BID 08/11/20 08/12/20 simethicone 80 mg FEEDING TUBE BID 08/11/20 08/12/20 alum-mag hydroxide-simeth [Maalox 30 ml FEEDING TUBE Q6H PRN 08/12/20 08/12/20 Maximum Strength] ascorbic acid (vitamin C) 1,000 mg PO DAILY 08/12/20 08/12/20 guaifenesin 200 mg PO Q6H 08/12/20 08/12/20 magnesium oxide 400 mg FEEDING TUBE BID 08/12/20 08/12/20 melatonin 3 mg FEEDING TUBE HS PRN 08/12/20 08/12/20 ondansetron 4 mg PO Q6H PRN 08/12/20 08/12/20 sertraline 100 mg FEEDING TUBE HS 08/12/20 08/12/20 Allergies Allergy/AdvReac Type Severity Reaction Status Date / Time Penicillins AdvReac Nausea and Verified 09/13/20 11:00 Vomiting Review of Systems Review of Systems: ROS unobtainable: Yes unobtainable due to medical condition PMFSH Past Medical History Medical History Cancer of left breast Chronic constipation With fecal impaction in July 2020 at [facility] Chronic indwelling Dorman catheter Since January of 2020 due to chronic urinary retention with hydronephrosis Coronary artery disease CVA (cerebral vascular accident) 2010 and in 2016 with chronic left hemiparesis, dysphagia and expressive aphasia Depression Diabetic peripheral neuropathy Essential hypertension Hyperlipidemia Infection with multi-drug resistant microorganisms UTI Kidney stones Pneumonia due to COVID-19 virus July 10, 2020 Sacral decubitus ulcer, stage IV Type 2 diabetes mellitus Vitamin D deficiency Surgical History Surgical History Gastrostomy tube in place History of left mastectomy 2010 History of partial thyroidectomy 1993 S/P ureteral stent placement January 2020 right sided Status post abdominal aortic aneurysm repair Family History Family History Other Unknown family medical history Social History Social History Social History: The patient resides at [facility]. She had 4 children. Code status: Full code (state form on the chart) Smoking status: Unknown if ever smoked Alcohol intake: unknown Substance use: unknown Spiritual care concerns: No Exam Narrative: Exam Narrative: APPEARANCE: Laying in bed will open eyes to verbal stimuli EYES: PERRL HEENT: Normocephalic, atraumatic, oral mucosa dry RESPIRATORY: No respiratory distress Clear to auscultation bilaterally with no rhonchi wheezing or rales. CARDIOVASCULAR: Regular rate and rhythm without murmurs rubs or gallops. ABDOMINAL: Lower abdomen is distended and firm to touch diffusely tender palpation no rebound MUSCULOSKELETAlNo clubbing, cyanosis or edema. NEURO: Will open eyes to verbal stimuli and follows simple commands is able to state first name only SKIN:: Warm, dry. Large stage
[2020-09-13 12:59] LABS: Creatine Kinase < 20 U/L (30-135)
[2020-09-13 13:06] LABS: Lactic Acid Reflex 4.7 mmol/L (0.7-2.1)
[2020-09-13] MEDS: INSULIN HUMAN REGULAR (*BKC) 100 UNITS in SODIUM CHLORIDE 0.9% IV 99 ML 8.3 UNITS IV CONT (13:45)
--- NOTE | 2020-09-13 14:14 | WPDCNINT ---
Assessment and Plan Assessment and plan (1) Sepsis: Qualifiers: Sepsis acute organ dysfunction status: unspecified Sepsis type: sepsis due to unspecified organism Qualified Code(s): A41.9 - Sepsis, unspecified organism Code(s): A41.9 - Sepsis, unspecified organism Status: Acute Assessment and Plan: Secondary to UTI Dorman changed in ER Blood cultures and urine culture Patient started on empiric vancomycin and Levaquin. I will change Levaquin to imipenem as patient grew Proteus in the past which was resistant to Levaquin. Patient has marked allergic to penicillin she has received imipenem in the past without any complications on her previous hospitalization She is getting 30 mL/kg fluid bolus May need vasopressor to maintain a blood pressure Monitor lactic acid level every 4 hours (2) Acute UTI: Code(s): N39.0 - Urinary tract infection, site not specified Status: Acute Assessment and Plan: Patient has indwelling Dorman catheter which seem to be obstructed Dorman catheter was changed in the ED See above (3) Acute kidney injury: Code(s): N17.9 - Acute kidney failure, unspecified Status: Acute Assessment and Plan: Secondary to combination of sepsis and urinary tract obstruction Obstruction has been resolved by replacement of Dorman and patient now putting out urine Patient is getting IV fluids Monitor urine output and electrolytes (4) Urinary obstruction: Code(s): N13.9 - Obstructive and reflux uropathy, unspecified Status: Acute Assessment and Plan: CT A/P IMPRESSION: 1. Diffuse intramural emphysema of the bladder with additional small amount of extraluminal gas near the base of the bladder and suggestion of a sloughed portion of the bladder wall which is most concerning for emphysematous cystitis although could potentially represent sequela of mucosal injury from the Dorman catheter. Dr. Moyer discussed these findings with Dr. Galloway at 12:05 PM. 2. Worsening now moderate severity bilateral hydroureteronephrosis likely related to obstruction at the level of the bladder or bilateral ureterovesicular junctions. 3. Chronic right sacral decubitus ulcer which extends to contact the bone raising concern for osteoarthritis although there is no evident osteolysis to more specifically suggest this. 4. New wall thickening of the distal esophagus concerning for esophagitis which could be infectious or due to reflux. 5. Improving bibasilar pneumonia. 6. 3.0 x 1.5 cm region of decreased attenuation in the fundus of the uterus. Differential includes fluid, endometrial hyperplasia or malignancy, endometrial polyp or submucosal fibroid. When clinically improved consider follow-up pelvic ultrasound or hysteroscopy for further evaluation. 7. Small fat-containing left inguinal hernia. Dorman was replaced and patient put out close to 1300 cc of urine Urology has been consulted Will treat UTI in sepsis (5) Chronic indwelling Dorman catheter: Code(s): Z97.8 - Presence of other specified devices Status: Acute Assessment and Plan: Dorman was changed in the ER (6) Decubitus ulcer of sacral area: Onset Date: Unknown Qualifiers: Pressure injury stage: unstageable Qualified Code(s): L89.150 - Pressure ulcer of sacral region, unstageable Code(s): L89.159 - Pressure ulcer of sacral region, unspecified stage Status: Acute Assessment and Plan: s/p debridement by surgery on 08/17 and again on 08/24. Vac therapy held at that time Consult wound care (7) Pneumonia: Qualifiers: Laterality: unspecified laterality Lung location: unspecified part of lung Pneumonia type: due to unspecified organism Qualified Code(s): J18.9 - Pneumonia, unspecified organism Code(s): J18.9 - Pneumonia, unspecified organism Status: Acute Assessment and Plan: CT suggests that pneumonia appears to be improving Continu
[2020-09-13] MEDS: NOREPINEPHRINE 8 MG/D5W 250 ML 8 MG/250 ML BAG 15 MG IV CONT (14:32)
[2020-09-13 15:10] LABS: Glucose Point of Care 338 (65-105)
[2020-09-13] MEDS: SODIUM CHLORIDE 0.45% 1,000 ML 125 ML IV CONT ×2 (15:26→23:03)
[2020-09-13 15:31] LABS: Reflex Lactic Acid Yes or No Add Lactic
--- NOTE | 2020-09-13 15:33 | ADMGEN ---
This patient, Tara Marcano, was admitted to Intensive Care Unit-8 at 1500. Patient/family oriented to hospital policies and general routines including ID bracelet, bed and alarms, visiting hours, pain management, procedures, bathroom and other care routines, personal items, smoking policy, room service/diet, and visiting hours. Information on how to activate the Rapid Response Team has been discussed. Patient/Family are encouraged to report perceived risks to care and to ask questions if they do not understand what they are told or what they should do.
[2020-09-13] MEDS: NOREPINEPHRINE 8 MG/D5W 250 ML 8 MG/250 ML BAG 11.25 MG IV CONT (15:41)
[2020-09-13 15:46] LABS: Anion Gap 10 mmol/L (8-16); Blood Urea Nitrogen 66 mg/dL (7-17); Calcium 8.2 mg/dL (8.4-10.2); Carbon Dioxide 24 mmol/L (22-30); Chloride 117 mmol/L (98-107); Estimated CRCL calculation 45 ml/min; Estimated Glomerular Filt Rate > 60; Glucose 369 mg/dL (65-105); Potassium 3.3 mmol/L (3.4-5.0); Sodium 151 mmol/L (137-145)
[2020-09-13 16:00] LABS: Troponin I 0.018 ng/mL (0.000-0.034)
--- NOTE | 2020-09-13 16:08 | WPDURCON ---
Assessment and Plan Assessment and plan (1) Septic shock: Code(s): A41.9 - Sepsis, unspecified organism; R65.21 - Severe sepsis with septic shock Status: Acute (2) Gorman catheter problem: Code(s): T83.9XXA - Unspecified complication of genitourinary prosthetic device, implant and graft, initial encounter Status: Acute Assessment and Plan: She has obstructed >3 times in the past three weeks with a 16fr gorman in and a 10cc balloon. Therefore, a 22fr straight catheter was placed with 30cc in the balloon to prevent further obstruction or dislodging of the catheter. It was placed without difficulty, cloudy, bloody urine noted on return, betadine swabs were used prior to insertion and it was then attached to the bag and draining to gravity. Patient did not arouse during gorman insertion or removal of previous gorman. A urine culture was collected at the time of insertion. (3) Chronic indwelling Gorman catheter: Code(s): Z97.8 - Presence of other specified devices Status: Acute Assessment and Plan: Will recommend changing her catheter monthly with a 22fr and 30cc in her bulb each time. (4) Cloudy urine: Code(s): R82.90 - Unspecified abnormal findings in urine Status: Acute Assessment and Plan: Continue IV Levaquin. Tailor to culture results. (5) Acute UTI: Code(s): N39.0 - Urinary tract infection, site not specified Status: Acute (6) Gross hematuria: Code(s): R31.0 - Gross hematuria Status: Acute Assessment and Plan: Irrigate manually as needed. Will continue to monitor, no clots noted on CT. Catheter is draining well. Urology Consult Note HPI Date Seen: 09/13/20 Requesting Physician: Ellen Joaquin MD Primary Care Provider: [facility] Consult Narrative Narrative: Tara Marcano is a 69 year old female who presented to the ER today for what appears to be urosepsis and severe hyperglycemia. She is known to our practice from a recent hospitalization for a UTI that was initially diagnosed on 08/11/2020 with growth of E-Coli on her culture, she was then re-cultured on 08/16/2020 which showed growth of Enterococcus and then again on 08/23/2020 when I saw her, which grew Jenae. She had her catheter replaced by me on 08/23/2020 d/t obstruction after multiple attempts to manipulate the catheter and irrigate it manually and >1000cc of milky urine was drained at that time. She was sent back to the [place] to resume monthly catheter changes. She did have an obstructed catheter again today on admission with notable gross hematuria. She had her gorman removed and replaced in the ER which then noted 1300cc of bloody urine on return per Dr. Galloway. Her WBC is 18.6, creatinine 1.10 and she is hypotensive, tachycardic and tachypneic. Her UA is suggestive of a UTI, but no culture has been sent at this time. Her blood glucose was 558. The patient is unresponsive at this time and her catheter is in place draining bloody urine without clots. Review of Systems Review of Systems: ROS unobtainable: Yes unobtainable due to medical condition PMFSH Past Medical History Medical History Cancer of left breast Chronic constipation With fecal impaction in July 2020 at [facility] Chronic indwelling Gorman catheter Since January of 2020 due to chronic urinary retention with hydronephrosis Coronary artery disease CVA (cerebral vascular accident) 2010 and in 2016 with chronic left hemiparesis, dysphagia and expressive aphasia Depression Diabetic peripheral neuropathy Essential hypertension Hyperlipidemia Infection with multi-drug resistant microorganisms UTI Kidney stones Pneumonia due to COVID-19 virus July 10, 2020 Sacral decubitus ulcer, stage IV Type 2 diabetes mellitus Vitamin D deficiency Surgical History Surgical History
--- NOTE | 2020-09-13 16:11 | PM.IMHP ---
H&P: HPI History of Present Illness Date/Time: 09/13/20 16:11 Chief Complaint: 69 year old female a past medical history of hypertension, CVA with expressive aphasia, hemiparesis and dysphagia, insulin-dependent diabetes mellitus and chronic sacral decubitus ulcer, PEG tube, chronic Dorman for urinary obstruction who was sent From [facility] with concerns of GI bleeding. per ICU note. Pt looks clinically septic BP is low, huge sacral wounds, heart rate is high. Labs show wcc is high, lactate is high at 4.7, lfts are high. UA is positive. potassium is 3. Pt is non verbal and makes some eye contact. [facility] patient. Bedbound immobile. Pt remains full code. Recent covid in june. Wcc is high, plts high, potassium is low, sodium is high, lactic high, LFTs high. Review of Systems Review of Systems: All systems reviewed & are unremarkable except as noted in HPI and below PMFSH Past Medical History Medical History Cancer of left breast Chronic constipation With fecal impaction in July 2020 at [facility] Chronic indwelling Dorman catheter Since January of 2020 due to chronic urinary retention with hydronephrosis Coronary artery disease CVA (cerebral vascular accident) 2010 and in 2015 with chronic left hemiparesis, dysphagia and expressive aphasia Depression Diabetic peripheral neuropathy Essential hypertension Hyperlipidemia Infection with multi-drug resistant microorganisms UTI Kidney stones Pneumonia due to COVID-19 virus July 10, 2020 Sacral decubitus ulcer, stage IV Type 2 diabetes mellitus Vitamin D deficiency Surgical History Surgical History Gastrostomy tube in place History of left mastectomy 2010 History of partial thyroidectomy 1993 S/P ureteral stent placement January 2020 right sided Status post abdominal aortic aneurysm repair Family History Family History Other Unknown family medical history Social History Social History Social History: The patient resides at [facility]. She had 4 children. Code status: Full code (state form on the chart) Smoking status: Unknown if ever smoked Alcohol intake: unknown Substance use: unknown Gender identity (if verbalized by the patient): Female Spiritual care concerns: No Meds Home Medications and Allergies Home Medications Medication Instructions Recorded Confirmed Type amlodipine [Norvasc] 5 mg FEEDING TUBE DAILY 08/11/20 09/13/20 History aspirin 81 mg FEEDING TUBE DAILY 08/11/20 08/12/20 History bisacodyl 10 mg RECTAL DAILY PRN 08/11/20 08/12/20 History clopidogrel [Plavix] 75 mg FEEDING TUBE DAILY 08/11/20 09/13/20 History insulin lispro See Rx Instructions .ROUTE .COMPLEX 08/11/20 08/12/20 History metoprolol tartrate [Lopressor] 25 mg FEEDING TUBE BID 08/11/20 09/13/20 History polyethylene glycol 3350 [Miralax] 17 g FEEDING TUBE DAILY 08/11/20 08/12/20 History sennosides [Senokot] 8.6 mg FEEDING TUBE BID 08/11/20 08/12/20 History simethicone 80 mg FEEDING TUBE BID 08/11/20 08/12/20 History alum-mag hydroxide-simeth [Maalox 30 ml FEEDING TUBE Q6H PRN 08/12/20 08/12/20 History Maximum Strength] ascorbic acid (vitamin C) 1,000 mg PO DAILY 08/12/20 08/12/20 History guaifenesin 200 mg PO Q6H 08/12/20 08/12/20 History magnesium oxide 400 mg FEEDING TUBE BID 08/12/20 08/12/20 History melatonin 3 mg FEEDING TUBE HS PRN 08/12/20 08/12/20 History ondansetron 4 mg PO Q6H PRN 08/12/20 09/13/20 History sertraline 100 mg FEEDING TUBE HS 08/12/20 08/12/20 History Lantus Solostar U-100 Insulin 25 unit SUBCUT HS #0 ml 08/25/20 08/12/20 Rx famotidine 20 mg FEEDING TUBE Q12HR #60 tablet 08/25/20 09/13/20 Rx levothyroxine 25 mcg FEEDING TUBE DAILY@0630 #0 08/25/20 09/13/20 Rx ta
[2020-09-13 16:18] LABS: Glucose Point of Care 279 (65-105)
[2020-09-13 16:59] LABS: Lactic Acid Reflex 3.4 mmol/L (0.7-2.1)
[2020-09-13 17:00] LABS: Add Urine Microscopic? YES; Anion Gap 9 mmol/L (8-16); Appearance Urine Cloudy (Clear); Bacteria Urine 1+ /hpf; Bilirubin Urine Negative (Negative); Blood Urea Nitrogen 66 mg/dL (7-17); Blood Urine 3+ (Negative); Calcium 8.4 mg/dL (8.4-10.2); Carbon Dioxide 28 mmol/L (22-30); Chloride 115 mmol/L (98-107); Estimated CRCL calculation 41 ml/min; Estimated Glomerular Filt Rate 60; Glucose 302 mg/dL (65-105); Glucose Urine UA 1+ mg/dL (Negative); Ketones Urine Trace mg/dL (Negative); Leukocyte Esterase Ur 1+ LEU/UL (Negative); Nitrate Urine Negative (Negative); Potassium 3.2 mmol/L (3.4-5.0); Protein Urine 2+ mg/dL (Negative); RBC Urine >75 /hpf (0-2); Sodium 152 mmol/L (137-145); Urobilinogen Urine Negative mg/dL (<2.0); WBC Clumps Urine Present /HPF; WBC Urine >75 /hpf
[2020-09-13 17:01] LABS: Specific Grav Ur 1.048 (1.001-1.035)
[2020-09-13 17:02] LABS: Color Urine Red (Yellow)
[2020-09-13] MEDS: CENTRAL LINE FLUSH 10 ML IV PUSH ×2 (17:08→22:10)
[2020-09-13 17:16] LABS: Glucose Point of Care 214 (65-105)
[2020-09-13 18:18] LABS: Glucose Point of Care 193 (65-105)
[2020-09-13 19:24] LABS: Glucose Point of Care 139 (65-105)
[2020-09-13] MEDS: SOD HYPOCHLORITE 1/4 STRENGTH 473 ML 1 APPLIC TOPICAL (20:40)
[2020-09-13 20:45] LABS: Glucose Point of Care 112 (65-105)
[2020-09-13 20:59] LABS: Lactic Acid Reflex 2.2 mmol/L (0.7-2.1)
[2020-09-13 21:00] LABS: Anion Gap 6 mmol/L (8-16); Blood Urea Nitrogen 65 mg/dL (7-17); Calcium 8.6 mg/dL (8.4-10.2); Carbon Dioxide 29 mmol/L (22-30); Chloride 116 mmol/L (98-107); Estimated CRCL calculation 41 ml/min; Estimated Glomerular Filt Rate 60; Glucose 113 mg/dL (65-105); Potassium 3.1 mmol/L (3.4-5.0); Sodium 151 mmol/L (137-145)
[2020-09-13 21:12] LABS: Troponin I 0.028 ng/mL (0.000-0.034)
[2020-09-13 21:28] LABS: Glucose Point of Care 110 (65-105)
[2020-09-13] MEDS: POTASSIUM CHLORIDE 20 MEQ PACKET (FOR LIQUID) 40 MEQ FEED TUBE (22:10)
[2020-09-13 22:29] LABS: Glucose Point of Care 98 (65-105)
[2020-09-13 23:10] LABS: Glucose Point of Care 139 (65-105)
[2020-09-14] VITALS (27 sets, daily range): BP systolic 96–150; BP diastolic 55–72; PULSE 63–110; RESP 15–31; TEMP 36.2–38.4; O2SAT 90–100; BMI 25.5
[2020-09-14 00:20] LABS: Glucose Point of Care 171 (65-105)
[2020-09-14] MEDS: IBUPROFEN IV 800 MG/200 ML 800 MG/200 ML BAG 400 MG IVPB (00:47)
[2020-09-14 01:22] LABS: Glucose Point of Care 194 (65-105)
[2020-09-14 02:38] LABS: Glucose Point of Care 214 (65-105)
[2020-09-14 03:08] LABS: Troponin I 0.034 ng/mL (0.000-0.034)
[2020-09-14 03:36] LABS: Glucose Point of Care 199 (65-105)
[2020-09-14 04:33] LABS: Glucose Point of Care 167 (65-105)
[2020-09-14 05:13] LABS: Alanine Aminotransferase 123 U/L (4-35); Albumin Level 2.7 g/dL (3.5-5.1); Alkaline Phosphatase 300 U/L (38-126); Anion Gap 8 mmol/L (8-16); Aspartate Amino Transferase 108 U/L (14-36); Bilirubin,Total 0.2 mg/dL (0.2-1.3); Blood Urea Nitrogen 60 mg/dL (7-17); Calcium 8.2 mg/dL (8.4-10.2); Carbon Dioxide 25 mmol/L (22-30); Chloride 118 mmol/L (98-107); Estimated CRCL calculation 41 ml/min; Estimated Glomerular Filt Rate 60; Glucose 180 mg/dL (65-105); Magnesium 2.6 mg/dL (1.6-2.3); Potassium 3.8 mmol/L (3.4-5.0); Sodium 151 mmol/L (137-145)
[2020-09-14] MEDS: CENTRAL LINE FLUSH 10 ML IV PUSH ×4 (05:31→22:00)
[2020-09-14] MEDS: LEVOTHYROXINE SODIUM 25 MCG TABLET PO (05:31)
[2020-09-14 05:46] LABS: Glucose Point of Care 128 (65-105)
[2020-09-14 06:36] LABS: Hematocrit 26.2 % (37.0-47.0); Hemoglobin 7.4 g/dL (12.0-15.0); Mean Corpuscular HGB Conc 28.2 g/dl (32-36); Mean Corpuscular Hemoglobin 25.7 pg (26-34); Mean Platelet Volume 11.7 fl (7.4-10.4); Platelet Count Result 317 k/mm3 (150-375); Red Blood Count 2.88 M/mm3 (4.2-5.4); White Blood Count 13.9 K/mm3 (4.5-10.0)
--- NOTE | 2020-09-14 07:07 | WPDUROPN2 ---
Progress Note: A&P Assessment and Plan (1) Septic shock: Code(s): A41.9 - Sepsis, unspecified organism; R65.21 - Severe sepsis with septic shock Status: Acute (2) Emphysematous cystitis: Code(s): N30.80 - Other cystitis without hematuria Status: Acute Assessment and Plan: Hemodynamically improved overnight Will start CBI - probably short term need. Repeat CT-abd/pelvis tomorrow to check on hydronephrosis/gas in bladder wall Subjective Subjective Date/Time Seen: 09/14/20 07:07 Hemodynamically improving One episode of clot retention last night Review of Systems Cardiovascular: Cardiovascular: Denies chest pain, Denies lightheadedness, Denies palpitations and Denies dyspnea Respiratory: Respiratory: Denies dyspnea Gastrointestinal: Gastrointestinal: Denies diarrhea, Denies nausea and Denies vomiting Genitourinary: Genitourinary: Denies hematuria and Denies dysuria Endocrine: Endocrine: Denies palpitations Exam Const: General: no acute distress Resp: Effort & Inspection: normal respiratory effort GI: Inspection: non-distended GI Palp: No abdominal tenderness and No Guarding due to palpation present (GI) Auscultation: normal bowel sounds Urinary Catheter: Urinary Catheter: patent and draining and urine cloudy Objective Data Vital Signs Vital Signs: Vital Signs - 24 hr 09/13/20 10:08 09/13/20 11:15 09/13/20 11:16 Temperature 98.1 F Pulse Rate 135 H Respiratory Rate 21 H 34 H 37 H Blood Pressure 104/65 108/67 Pulse Oximetry 91 92 09/13/20 11:37 09/13/20 11:38 09/13/20 11:45 Temperature Pulse Rate 128 H Respiratory Rate 0 L 46 H Blood Pressure 121/61 Pulse Oximetry 95 93 94 09/13/20 11:46 09/13/20 12:00 09/13/20 12:01 Temperature Pulse Rate 128 H 129 H 129 H Respiratory Rate 44 H 33 H 31 H Blood Pressure 107/60 80/50 L Pulse Oximetry 93 09/13/20 12:15 09/13/20 12:16 09/13/20 12:30 Temperature Pulse Rate 129 H 129 H 129 H Respiratory Rate 41 H 39 H 43 H Blood Pressure 87/50 L Pulse Oximetry 09/13/20 12:31 09/13/20 12:45 09/13/20 12:46 Temperature Pulse Rate 131 H 130 H 130 H Respiratory Rate 42 H 43 H 42 H Blood Pressure 83/53 L 73/51 L Pulse Oximetry 09/13/20 12:51 09/13/20 13:00 09/13/20 13:01 Temperature Pulse Rate 129 H 129 H 128 H Respiratory Rate 44 H 39 H 38 H Blood Pressure 85/56 L 88/56 L Pulse Oximetry 93 93 93 09/13/20 13:40 09/13/20 14:42 09/13/20 15:10 Temperature Pulse Rate 126 H 127 H Respiratory Rate 40 H 32 H Blood Pressure 79/47 L Pulse Oximetry 98 99 95 09/13/20 15:25 09/13/20 15:41 09/13/20 15:49 Temperature Pulse Rate 119 H 117 H 116 H Respiratory Rate 36 H Blood Pressure 87/54 L 87/49 L Pulse Oximetry 93 09/13/20 16:00 09/13/20 16:13 09/13/20 16:14 Temperature Pulse Rate 115 H 112 H 112 H Respiratory Rate 39 H 37 H Blood Pressure 98/59 L Pulse Oximetry 90 90 09/13/20 16:20 09/13/20 16:28 09/13/20 16:30 Temperature Pulse Rate 115 H 117 H Respiratory Rate 36 H Blood Pressure 89/55 L Pulse Oximetry 88 L 93 09/13/20 16:59 09/13/20 17:08 09/13/20 17:21 Temperature Pulse Rate 119 H 118 H 118 H Respiratory Rate 37 H 33 H Blood Pressure 89/58 L Pulse Oximetry 90 94 09/13/20 18:00 09/13/20 20:00 09/13/20 20:12 Temperature 100.1 F H Pulse Rate 118 H 119 H 119 H Respiratory Rate 40 H 38 H 33 H Blood Pressure 96/62 L 100/62 Pulse Oximetry 92 91 94 09/13/20 22:00 09/13/20 22:09 09/13/20 23:03 Temperature Pulse Rate 113 H Respiratory Rate 33 H Blood Pressure 116/65 116/65 124/64 Pulse Oximetry 91 09/13/20 23:33 09/14/20 00:00 09/14/20 00:14 Temperature 101.1 F H Pulse Rate 110 H Respiratory Rate 31 H Blood Pressure 126/67 113/63 113/63 Pulse Oximetry 93 03/25/21 00:47 09/14/20 00:52 09/14/20 01:47 Temperature 101.1 F H 99.2 F Pulse Rate Respiratory Rate
[2020-09-14 07:16] LABS: Band Neutrophils Percent 11 % (0-6); Lymphocytes Absolute Manual 2.08 K/mm3 (1.1-4.5); Monocytes Absolute Manual 0.27 K/mm3 (0.1-0.90); Monocytes Percent Manual 2 % (3-9); Neutrophils Absolute Manual 11.53 K/mm3 (1.7-7.2); Neutrophils Percent Manual 72 % (46-73); Platelet Estimate Adequate (Adequate); Total Cells Counted 100
[2020-09-14 07:17] LABS: Hypochromasia 2+ (NORMAL); Ovalocytes 1+ (NORMAL); Target Cells 1+ (NORMAL)
[2020-09-14 07:26] LABS: Glucose Point of Care 116 (65-105)
[2020-09-14] MEDS: SODIUM CHLORIDE 0.45% 1,000 ML 125 ML IV CONT (07:27)
[2020-09-14] MEDS: SOD HYPOCHLORITE 1/4 STRENGTH 473 ML 1 APPLIC TOPICAL ×2 (08:54→20:13)
--- NOTE | 2020-09-14 10:54 | WPDINTPN ---
Progress Note: A&P Assessment and Plan (1) Septic shock: Code(s): A41.9 - Sepsis, unspecified organism; R65.21 - Severe sepsis with septic shock Status: Acute Assessment and Plan: Secondary to UTI Dorman changed in ER Blood cultures and urine culture pending Patient started on empiric vancomycin and Levaquin. Changed Levaquin to imipenem as patient grew Proteus in the past which was resistant to Levaquin. Patient has marked allergic to penicillin she has received imipenem in the past without any complications on her previous hospitalization Received 30 mL/kg fluid bolus On Levophed Lactic acid level has improved (2) Acute respiratory failure with hypoxia: Code(s): J96.01 - Acute respiratory failure with hypoxia Status: Acute Assessment and Plan: Patient was on BiPAP overnight Switched to nasal cannula 4 L this morning and she is maintaining saturations Continue to monitor closely Chest x-ray reviewed (3) Acute UTI: Code(s): N39.0 - Urinary tract infection, site not specified Status: Acute Assessment and Plan: Patient has indwelling Dorman catheter which seem to be obstructed on presentation Dorman catheter was changed in the ED See above (4) Acute kidney injury: Code(s): N17.9 - Acute kidney failure, unspecified Status: Acute Assessment and Plan: Secondary to combination of sepsis and urinary tract obstruction Obstruction has been resolved by replacement of Dorman and patient now putting out urine Patient is getting IV fluids Monitor urine output and electrolytes (5) Urinary obstruction: Code(s): N13.9 - Obstructive and reflux uropathy, unspecified Status: Acute Assessment and Plan: CT A/P IMPRESSION: 1. Diffuse intramural emphysema of the bladder with additional small amount of extraluminal gas near the base of the bladder and suggestion of a sloughed portion of the bladder wall which is most concerning for emphysematous cystitis although could potentially represent sequela of mucosal injury from the Dorman catheter. Dr. Moyer discussed these findings with Dr. Galloway at 12:05 PM. 2. Worsening now moderate severity bilateral hydroureteronephrosis likely related to obstruction at the level of the bladder or bilateral ureterovesicular junctions. 3. Chronic right sacral decubitus ulcer which extends to contact the bone raising concern for osteoarthritis although there is no evident osteolysis to more specifically suggest this. 4. New wall thickening of the distal esophagus concerning for esophagitis which could be infectious or due to reflux. 5. Improving bibasilar pneumonia. 6. 3.0 x 1.5 cm region of decreased attenuation in the fundus of the uterus. Differential includes fluid, endometrial hyperplasia or malignancy, endometrial polyp or submucosal fibroid. When clinically improved consider follow-up pelvic ultrasound or hysteroscopy for further evaluation. 7. Small fat-containing left inguinal hernia. Dorman was replaced and patient put out close to 1300 cc of urine Dorman had to be flushed again last night Urology has seen the patient and plan to repeat CT scan Will treat UTI (6) Chronic indwelling Dorman catheter: Code(s): Z97.8 - Presence of other specified devices Status: Acute Assessment and Plan: Dorman was changed in the ER (7) Gross hematuria: Code(s): R31.0 - Gross hematuria Status: Acute (8) Anemia: Code(s): D64.9 - Anemia, unspecified Status: Acute Assessment and Plan: Likely secondary to blood loss from hematuria Monitor hemoglobin Transfuse as needed (9) Decubitus ulcer of sacral area: Onset Date: Unknown Qualifiers: Pressure injury stage: unstageable Qualified Code(s): L89.150 - Pressure ulcer of sacral region, unstageable Code(s): L89.159 - Pressure ulcer of sacral region, unspecified stage Status: Acute Assessment and Plan: s/p debr
[2020-09-14 11:25] LABS: Glucose Point of Care 210 (65-105)
[2020-09-14] MEDS: INSULIN ASPART (*BKC) 100 UNITS/ML SUB-Q (11:25)
[2020-09-14 11:40] LABS: Hematocrit 24.5 % (37.0-47.0); Mean Corpuscular HGB Conc 28.2 g/dl (32-36); Mean Corpuscular Hemoglobin 25.1 pg (26-34); Mean Corpuscular Volume 89.1 fl (80-100); Mean Platelet Volume 10.6 fl (7.4-10.4); Platelet Count Result 247 k/mm3 (150-375); Red Blood Count 2.75 M/mm3 (4.2-5.4); Red Cell Distribution Width 19.1 % (11.5-14.5); White Blood Count 12.1 K/mm3 (4.5-10.0)
[2020-09-14 11:51] LABS: Hemoglobin 6.9 g/dL (12.0-15.0)
--- NOTE | 2020-09-14 13:02 | PM.IMPN ---
Progress Note: A&P Assessment and Plan (1) Gross hematuria: Code(s): R31.0 - Gross hematuria Status: Acute Assessment and Plan: Continue to watch, hold blood thinners (2) Septic shock: Code(s): A41.9 - Sepsis, unspecified organism; R65.21 - Severe sepsis with septic shock Status: Acute Assessment and Plan: Pt is on vasopressors, IV vancomycin, Iv levaquin and iv primaxin and iv fluids. Pt continues to be hypotensive. (3) Acute respiratory failure with hypoxia: Code(s): J96.01 - Acute respiratory failure with hypoxia Status: Acute Assessment and Plan: Pt is on 2 liters of oxygen continue to watch (4) Chronic indwelling Dorman catheter: Code(s): Z97.8 - Presence of other specified devices Status: Acute Assessment and Plan: Chronic indwelling due to CVA, urology consulting. (5) Anemia: Code(s): D64.9 - Anemia, unspecified Status: Acute Assessment and Plan: Hb is 6.9 low. (6) Urinary obstruction: Code(s): N13.9 - Obstructive and reflux uropathy, unspecified Status: Acute (7) Acute kidney injury: Code(s): N17.9 - Acute kidney failure, unspecified Status: Acute Assessment and Plan: Creta is 1.1 (8) Acute UTI: Code(s): N39.0 - Urinary tract infection, site not specified Status: Acute Assessment and Plan: Pt is on iv levaquin and iv vancomycin and iv primaxin (9) Pneumonia: Qualifiers: Laterality: unspecified laterality Lung location: unspecified part of lung Pneumonia type: due to unspecified organism Qualified Code(s): J18.9 - Pneumonia, unspecified organism Code(s): J18.9 - Pneumonia, unspecified organism Status: Acute Assessment and Plan: Pt is on iv Levaquin and iv vancomycin Subjective Date/time seen: 09/14/20 13:02 Interval history: 69 year old female a past medical history of hypertension, CVA with expressive aphasia, hemiparesis and dysphagia, insulin-dependent diabetes mellitus and chronic sacral decubitus ulcer, PEG tube, chronic Dorman for urinary obstruction who was sent From senior living with concerns of bleeding. Pt looks septic pt also has gross hematuria. Daughter at the beside. pt is still unwell, bp is low. pt seen by ICU MD and urology MD Review of Systems Review of Systems: ROS unobtainable: Yes unobtainable due to medical condition Exam Const: General: tired appearing and other (Bedbound, somulent, non verbal, ill appearing ) Neck: Neck: supple Chest: Chest palpation & inspection: normal inspection of the chest Resp: Effort & Inspection: normal respiratory effort Auscultation: clear to auscultation bilaterally Cardio: Jugular venous distension: no JVD Rhythm: regular rhythm Heart sounds: S1 normal heart sound present and S2 normal heart sound present GI: Inspection: normal to inspection Urinary Catheter: Urinary Catheter: urine red and other (regional intermodal truck driver catheter) Extrem: General: other (large sacral sores, hip and sacrum ) Objective Data Vital Signs Vital Signs: Vital Signs - 24 hr 09/13/20 13:40 09/13/20 14:42 09/13/20 15:10 Temperature Pulse Rate 126 H 127 H Respiratory Rate 40 H 32 H Blood Pressure 79/47 L Pulse Oximetry 98 99 95 09/13/20 15:25 09/13/20 15:41 09/13/20 15:49 Temperature Pulse Rate 119 H 117 H 116 H Respiratory Rate 36 H Blood Pressure 87/54 L 87/49 L Pulse Oximetry 93 09/13/20 16:00 09/13/20 16:13 09/13/20 16:14 Temperature Pulse Rate 115 H 112 H 112 H Respiratory Rate 39 H 37 H Blood Pressure 98/59 L Pulse Oximetry 90 90 09/13/20 16:20 09/13/20 16:28 09/13/20 16:30 Temperature Pulse Rate 115 H 117 H Respiratory Rate 36 H Blood Pressure 89/55 L Pulse Oximetry 88 L 93 09/13/20 16:59 09/13/20 17:08 09/13/20 17:21 Temperature Pulse Rate 119 H 118 H 118 H Respiratory Rate 37 H 33 H Blood Pressure 89/5
[2020-09-14 16:48] LABS: Glucose Point of Care 139 (65-105)
[2020-09-14 17:00] LABS: Hematocrit 26.2 % (37.0-47.0); Hemoglobin 7.7 g/dL (12.0-15.0); Mean Corpuscular HGB Conc 29.4 g/dl (32-36); Mean Corpuscular Hemoglobin 25.6 pg (26-34); Platelet Count Result 252 k/mm3 (150-375); Red Blood Count 3.01 M/mm3 (4.2-5.4); Red Cell Distribution Width 18.4 % (11.5-14.5); White Blood Count 11.9 K/mm3 (4.5-10.0)
[2020-09-14] MEDS: SODIUM CHLORIDE 0.9% IV 250 ML 30 ML IV CONT (17:41)
[2020-09-14 19:36] LABS: Anion Gap 5 mmol/L (8-16); Blood Urea Nitrogen 50 mg/dL (7-17); Calcium 7.9 mg/dL (8.4-10.2); Carbon Dioxide 27 mmol/L (22-30); Chloride 116 mmol/L (98-107); Estimated CRCL calculation 55 ml/min; Estimated Glomerular Filt Rate > 60; Glucose 146 mg/dL (65-105); Magnesium 2.6 mg/dL (1.6-2.3); Potassium 3.8 mmol/L (3.4-5.0); Sodium 148 mmol/L (137-145)
[2020-09-14 20:53] LABS: Glucose Point of Care 147 (65-105)
[2020-09-14] MEDS: SODIUM CHLORIDE 0.45% 1,000 ML 50 ML IV CONT (23:52)
[2020-09-15] VITALS (7 sets, daily range): BP systolic 115–132; BP diastolic 56–76; PULSE 82–87; RESP 14–87; TEMP 35.8–36.4; O2SAT 93–97
[2020-09-15 00:04] LABS: Glucose Point of Care 175 (65-105)
[2020-09-15] MEDS: ACETAMINOPHEN 325 MG TABLET 650 MG PO (01:23)
[2020-09-15 04:44] LABS: Hematocrit 27.5 % (37.0-47.0); Hemoglobin 8.1 g/dL (12.0-15.0); Mean Corpuscular HGB Conc 29.5 g/dl (32-36); Mean Corpuscular Hemoglobin 25.4 pg (26-34); Mean Corpuscular Volume 86.2 fl (80-100); Mean Platelet Volume 11.2 fl (7.4-10.4); Platelet Count Result 277 k/mm3 (150-375); Red Blood Count 3.19 M/mm3 (4.2-5.4); Red Cell Distribution Width 18.2 % (11.5-14.5); White Blood Count 11.5 K/mm3 (4.5-10.0)
[2020-09-15 05:10] LABS: Alanine Aminotransferase 115 U/L (4-35); Albumin Level 2.6 g/dL (3.5-5.1); Alkaline Phosphatase 251 U/L (38-126); Anion Gap 4 mmol/L (8-16); Aspartate Amino Transferase 122 U/L (14-36); Bilirubin,Total 0.2 mg/dL (0.2-1.3); Blood Urea Nitrogen 39 mg/dL (7-17); Carbon Dioxide 25 mmol/L (22-30); Chloride 116 mmol/L (98-107); Estimated CRCL calculation 72 ml/min; Estimated Glomerular Filt Rate > 60; Glucose 206 mg/dL (65-105); Magnesium 2.4 mg/dL (1.6-2.3); Potassium 3.4 mmol/L (3.4-5.0); Sodium 145 mmol/L (137-145)
[2020-09-15 05:37] LABS: Glucose Point of Care 200 (65-105)
[2020-09-15] MEDS: LEVOTHYROXINE SODIUM 25 MCG TABLET PO (05:44)
[2020-09-15] MEDS: CENTRAL LINE FLUSH 10 ML IV PUSH (05:44)
--- NOTE | 2020-09-15 06:54 | WPDUROPN2 ---
Progress Note: A&P Assessment and Plan (1) Gross hematuria: Code(s): R31.0 - Gross hematuria Status: Acute (2) Emphysematous cystitis: Code(s): N30.80 - Other cystitis without hematuria Status: Acute Assessment and Plan: Hematuria slowly improving on Vancomycin and Imipenem Urine pink-red but no clotting overnight - represents some improvement. Creat. improved to 0.[address] abd/pelvis this morning Subjective Subjective Date/Time Seen: 09/15/20 06:54 Hemodynamically stable off pressors Review of Systems Review of Systems: ROS unobtainable: Yes unobtainable due to mental status Genitourinary: Genitourinary: Denies hematuria Exam Const: General: no acute distress Resp: Effort & Inspection: normal respiratory effort GI: Inspection: non-distended GI Palp: No abdominal tenderness and No Guarding due to palpation present (GI) Auscultation: normal bowel sounds Urinary Catheter: Urinary Catheter: patent and draining, urine pink and urine red Objective Data Vital Signs Vital Signs: Vital Signs - 24 hr 09/14/20 08:00 09/14/20 08:05 09/14/20 10:00 Temperature 98.0 F 98.2 F Pulse Rate 78 87 83 Respiratory Rate 16 23 H 18 Blood Pressure 150/72 H 101/56 L Pulse Oximetry 92 92 99 09/14/20 10:35 09/14/20 11:00 09/14/20 11:11 Temperature Pulse Rate 82 83 82 Respiratory Rate 18 18 16 Blood Pressure Pulse Oximetry 98 98 97 09/14/20 12:00 09/14/20 12:51 09/14/20 13:07 Temperature 97.9 F 97.2 F L 97.3 F L Pulse Rate 83 81 84 Respiratory Rate 16 15 18 Blood Pressure 100/55 L 99/56 L 102/58 L Pulse Oximetry 97 100 97 09/14/20 14:00 09/14/20 14:07 09/14/20 15:05 Temperature 97.5 F L 97.4 F L Pulse Rate 82 80 81 Respiratory Rate 16 16 16 Blood Pressure 115/62 101/57 L 106/62 Pulse Oximetry 100 97 96 09/14/20 16:00 09/14/20 18:00 09/14/20 20:00 Temperature 97.6 F Pulse Rate 80 82 85 Respiratory Rate 16 21 H 19 Blood Pressure 109/60 100/59 L 113/60 Pulse Oximetry 95 97 95 09/14/20 21:06 09/14/20 22:00 09/15/20 00:00 Temperature 96.4 F L Pulse Rate 86 87 86 Respiratory Rate 16 18 25 H Blood Pressure 109/59 L 115/56 L Pulse Oximetry 93 94 93 09/15/20 02:00 09/15/20 04:00 09/15/20 06:00 Temperature 97.5 F L Pulse Rate 82 85 87 Respiratory Rate 22 H 18 87 H Blood Pressure 132/70 129/76 129/73 Pulse Oximetry 95 95 93 Intake/Output Intake/Output: Intake & Output 09/12/20 09/13/20 09/14/20 09/15/20 23:59 23:59 23:59 23:59 Intake Total 2480 3441 842 Output Total 600 1700 1150 Balance 1880 1741 -308 Meds/Results Medications: Active Medications Generic Name Dose Route Start Last Admin Trade Name Freq PRN Reason Stop Dose Admin Acetaminophen 650 mg 09/14/20 11:04 09/15/20 01:23 Acetaminophen 325 Mg Tablet PO 650 mg Q4H PRN Administration Fever Dextrose 12.5 gm 09/14/20 07:54 Dextrose 50% 25 Gm/50 Ml Syringe IV PUSH PRN PRN Hypoglycemia Protocol Glucagon 1 mg 09/14/20 07:54 Glucagon For Inj 1 Mg Vial IM PRN PRN Hypoglycemia Protocol Glucose 15 gm 09/14/20 07:54 Glucose Oral Gel 15 Gm Of Glucse In 37.5 Gm Tube PO PRN PRN Hypoglycemia Protocol Sodium Chloride 1,000 mls @ 50 mls/hr 09/13/20 14:25 09/14/20 23:52 Sodium Chloride 0.45% IV CONT 50 mls/hr .Q20H MIK Administration Vancomycin HCl 1,250 mg in 250 mls @ 200 mls/hr 09/14/20 09:00 09/14/20 08:55 Vancomycin 1,250 Mg/D5w 250 Ml IVPB Infused Q24H MIK Infusion Imipenem/Cilastatin Sodium 500 mg in 100 mls @ 300 mls/hr 09/13/20 15:00 09/15/20 03:25 Primaxin 500 Mg/D5w 100 Ml IVPB Infused Q6H MIK Infusion Norepinephrine Bitartrate 8 mg in 250 mls @ 0 mls/hr 09/13/20 15:30 09/14/20 08:38 Levophed 8 Mg/D5w 250 Ml IV CONT 0 mcg/min .Q0M MIK 0 mls/hr Titration Protocol Dextrose 1,000 mls @ 100 mls/hr 09/14/20 07:54 De
[2020-09-15 08:41] LABS: Glucose Point of Care 238 (65-105)
[2020-09-15] MEDS: SOD HYPOCHLORITE 1/4 STRENGTH 473 ML 1 APPLIC TOPICAL (08:50)
[2020-09-15] MEDS: INSULIN ASPART (*BKC) 100 UNITS/ML SUB-Q ×2 (08:50→12:45)
[2020-09-15 12:44] LABS: Glucose Point of Care 217 (65-105)
--- NOTE | 2020-09-15 13:17 | WPDINTPN ---
Progress Note: A&P Assessment and Plan (1) Septic shock: Code(s): A41.9 - Sepsis, unspecified organism; R65.21 - Severe sepsis with septic shock Status: Acute Assessment and Plan: Secondary to UTI Dorman changed in ER Urine culture showing E.Coli off vasopressors support with good urine output Continue imipenem 500 mg IV Q 6 hours for a total of 7 days. (2) Acute respiratory failure with hypoxia: Code(s): J96.01 - Acute respiratory failure with hypoxia Status: Acute Assessment and Plan: Patient was on BiPAP overnight Switched to nasal cannula 4 L this morning and she is maintaining saturations Continue to monitor closely Chest x-ray reviewed (3) Acute UTI: Code(s): N39.0 - Urinary tract infection, site not specified Status: Acute Assessment and Plan: Patient has indwelling Dorman catheter which seem to be obstructed on presentation Dorman catheter was changed in the ED See above (4) Acute kidney injury: Code(s): N17.9 - Acute kidney failure, unspecified Status: Acute Assessment and Plan: Secondary to combination of sepsis and urinary tract obstruction Obstruction has been resolved by replacement of Dorman and patient now putting out urine Patient is getting IV fluids Monitor urine output and electrolytes (5) Urinary obstruction: Code(s): N13.9 - Obstructive and reflux uropathy, unspecified Status: Acute Assessment and Plan: CT A/P IMPRESSION: 1. Diffuse intramural emphysema of the bladder with additional small amount of extraluminal gas near the base of the bladder and suggestion of a sloughed portion of the bladder wall which is most concerning for emphysematous cystitis although could potentially represent sequela of mucosal injury from the Dorman catheter. Dr. Moyer discussed these findings with Dr. Galloway at 12:05 PM. 2. Worsening now moderate severity bilateral hydroureteronephrosis likely related to obstruction at the level of the bladder or bilateral ureterovesicular junctions. 3. Chronic right sacral decubitus ulcer which extends to contact the bone raising concern for osteoarthritis although there is no evident osteolysis to more specifically suggest this. 4. New wall thickening of the distal esophagus concerning for esophagitis which could be infectious or due to reflux. 5. Improving bibasilar pneumonia. 6. 3.0 x 1.5 cm region of decreased attenuation in the fundus of the uterus. Differential includes fluid, endometrial hyperplasia or malignancy, endometrial polyp or submucosal fibroid. When clinically improved consider follow-up pelvic ultrasound or hysteroscopy for further evaluation. 7. Small fat-containing left inguinal hernia. Dorman was replaced and patient put out close to 1300 cc of urine Dorman had to be flushed again last night Urology has seen the patient and plan to repeat CT scan Will treat UTI (6) Chronic indwelling Dorman catheter: Code(s): Z97.8 - Presence of other specified devices Status: Acute Assessment and Plan: Dorman was changed in the ER (7) Gross hematuria: Code(s): R31.0 - Gross hematuria Status: Acute (8) Anemia: Code(s): D64.9 - Anemia, unspecified Status: Acute Assessment and Plan: Likely secondary to blood loss from hematuria Monitor hemoglobin Transfuse as needed (9) Decubitus ulcer of sacral area: Onset Date: Unknown Qualifiers: Pressure injury stage: unstageable Qualified Code(s): L89.150 - Pressure ulcer of sacral region, unstageable Code(s): L89.159 - Pressure ulcer of sacral region, unspecified stage Status: Acute Assessment and Plan: s/p debridement by surgery on 08/17 and again on 08/24. Vac therapy held at that time Consulted wound care which recommend local wound care with Dakin solution (10) Pneumonia: Qualifiers: Laterality: unspecified laterality Lung location: unspecified part of l
--- NOTE | 2020-09-15 14:02 | PCDIET ---
Nutrition Follow-Up Complete: Nutrition Diagnosis: Swallowing difficulty related to dysphagia as evidenced by need for g-tube feedings. Nutrition Goal: Meet estimated nutritional needs Goal met. Patient tolerating Glucerna 1.2 at 70mL/hr with 150mL water flush every 4 hours, per MD. RN to clarify water flush order. Last recorded weight is 74.8 kg which is stable with last review. Bowel Motility: BM x 1 today. Labs Reviewed: Hgb (8.1), Hct (27.5), Glu (238), BUN (39), Cr (0.6), Alb (2.6), Pb Ca (9.12) Meds Noted: Imipenem, Novolog, Synthroid, Vancomycin, 0.45NaCl at 50ml/hr Additional Notes: Patient with large sacral wound, bone visible. Deep tissue area to left heel. Pressure ulcers to right lateral ankle and left hip. Nutrition Monitoring and Evaluation: Will monitor every Friday and Friday.
--- NOTE | 2020-09-15 14:24 | PM.DS ---
DS: Admitting Diagnosis Admitting Diagnosis Admitting Diagnosis: Altered mental status DS: Discharge Diagnosis Discharge Diagnosis (1) Gross hematuria: Code(s): R31.0 - Gross hematuria Status: Acute Assessment and Plan: Pt changed to on hospice (2) Septic shock: Code(s): A41.9 - Sepsis, unspecified organism; R65.21 - Severe sepsis with septic shock Status: Acute Assessment and Plan: Pt is on hospice (3) Acute respiratory failure with hypoxia: Code(s): J96.01 - Acute respiratory failure with hypoxia Status: Acute Assessment and Plan: Pt is on hospice (4) Chronic indwelling Dorman catheter: Code(s): Z97.8 - Presence of other specified devices Status: Acute Assessment and Plan: Pt is on hospice (5) Anemia: Code(s): D64.9 - Anemia, unspecified Status: Acute Assessment and Plan: Pt is on hospice (6) Urinary obstruction: Code(s): N13.9 - Obstructive and reflux uropathy, unspecified Status: Acute Assessment and Plan: Pt is on hospice (7) Acute kidney injury: Code(s): N17.9 - Acute kidney failure, unspecified Status: Acute Assessment and Plan: Pt is on hospice (8) Acute UTI: Code(s): N39.0 - Urinary tract infection, site not specified Status: Acute Assessment and Plan: Pt is on hospice (9) Pneumonia: Qualifiers: Laterality: unspecified laterality Lung location: unspecified part of lung Pneumonia type: due to unspecified organism Qualified Code(s): J18.9 - Pneumonia, unspecified organism Code(s): J18.9 - Pneumonia, unspecified organism Status: Acute Assessment and Plan: Pt is on hospice DS: Summary Hospital Course Hospital Course: 69 year old female a past medical history of hypertension, CVA with expressive aphasia, hemiparesis and dysphagia, insulin-dependent diabetes mellitus and chronic sacral decubitus ulcer, PEG tube, chronic Dorman for urinary obstruction who was sent From senior living with concerns of bleeding. Pt looks septic pt also has gross hematuria. Pt is still unwell, bp is low. pt seen by ICU MD and urology MD, family have decided hospice, given her comorbidities, frail condition and poor response to treatment. Time Spent with Patient Time attestation: Total time spent providing and/or coordinating discharge services:40 minutes on day of discharge Exam Const: General: tired appearing and other (Bedbound, somulent, non verbal, ill appearing ) Chest: Chest palpation & inspection: normal inspection of the chest Resp: Effort & Inspection: normal respiratory effort Auscultation: clear to auscultation bilaterally Cardio: Jugular venous distension: no JVD Rhythm: regular rhythm Heart sounds: S1 normal heart sound present and S2 normal heart sound present GI: Inspection: normal to inspection Urinary Catheter: Urinary Catheter: urine red 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) Extrem: General: other (large sacral sores, hip and sacrum ) DS: Data Data Completed and Pending Labs on day of discharge: Labs from last 24 hours 09/15/20 09/15/20 09/15/20 12:42 08:39 04:32 WBC RBC Hgb Hct MCV MCH MCHC RDW Plt Count MPV Sodium Potassium Chloride Carbon Dioxide Anion Gap BUN Creatinine Estim Creat Clear Calc Estimated GFR Glucose POC Capillary Glucose 217 H 238 H 200 H Calcium Magnesium Total Bilirubin AST ALT Alkaline Phosphatase Total Protein Albumin Crossmatch 09/15/20 09/15/20 09/14/20 04:32 04:32 23:43 WBC 11.5 H RBC 3.19 L Hgb 8.1 L Hct 27.5 L MCV 86.2 MCH 25.4 L MCHC 29.5 L RDW 18.2 H Plt Count 277 MPV 11.2 H Sodium 145 Potassium 3.4 Chloride 116 H Carbon Dioxide 25 Anion Gap 4 L BUN 39 H D Creatinine 0.60 L Estim Creat C
--- NOTE | 2020-09-15 15:15 | PC.NURSE ---
Pt discharged to inpatient hospice.
[2020-09-16 06:20] LABS: Glucose Point of Care 108 (65-105)
== END 2020-09-15 15:09 | disposition hospice, home (50) | DRG 698 ==
LOC: ANHED 12:41 → ANHICU 15:03
PROVIDERS: Internal Medicine; Admitting Provider Family Medicine; Emergency Provider Emergency Medicine; Visit Provider Family Medicine
DX: T83.511A Infection and inflammatory reaction due to indwelling urethral catheter, initial encounter (principal); A41.9 Sepsis, unspecified organism; L89.154 Pressure ulcer of sacral region, stage 4; J96.01 Acute respiratory failure with hypoxia; J18.9 Pneumonia, unspecified organism; G92 Toxic encephalopathy; R65.21 Severe sepsis with septic shock; E87.0 Hyperosmolality and hypernatremia; I69.354 Hemiplegia and hemiparesis following cerebral infarction affecting left non-dominant side; N30.80 Other cystitis without hematuria; E11.42 Type 2 diabetes mellitus with diabetic polyneuropathy; E11.65 Type 2 diabetes mellitus with hyperglycemia; T83.091A Other mechanical complication of indwelling urethral catheter, initial encounter; I69.320 Aphasia following cerebral infarction; I69.391 Dysphagia following cerebral infarction; R13.19 Other dysphagia; E03.9 Hypothyroidism, unspecified; D64.9 Anemia, unspecified
CPT/HCPCS: 36415; 36430; 36556; 36600; 70450; 71045; 74176; 74177; 80048; 80053; 81001; 82550; 82805; 82948; 83605; 83735; 84443; 84484; 85025; 85027; 85610; 85730; 86850; 86900; 86901; 86923; 87040; 87077; 87086; 87088; 87186; 93005; 94002; 94003; 94660; 96361; 96374; 99291; A9270; C1751; J0131; J0743; J1741; J1815; J1956; J3370; J3480; J7030; J7050; P9016; Q9967

== ENCOUNTER 2020-09-15 14:30 | HOS | payer OTHER, SELFPAY ==
[2020-09-15 15:37] VITALS: PULSE 83; RESP 28; O2SAT 95
[2020-09-15 15:51] VITALS: BP 136/65; PULSE 82; RESP 24; O2SAT 93
[2020-09-15] MEDS: MORPHINE SULFATE INJ (*CRX) 50 MG in SODIUM CHLORIDE 0.9% IV 95 ML IV CONT (16:05)
[2020-09-15] MEDS: MORPHINE SULFATE (*CRX) 2 MG/ML INJ IV PUSH (16:06)
[2020-09-15] MEDS: LORazepam INJ (*CRX) 2 MG/ML VIAL 0.5 MG IV PUSH ×2 (16:10→22:54)
--- NOTE | 2020-09-15 18:41 | PC.NURSE ---
This patient, Tara Marcano, was received from [ICU ] on 09/15/20 at 1. Patient/family oriented to unit policies and routines
[2020-09-15 18:42] VITALS: PULSE 82; RESP 24; O2SAT 93
[2020-09-15 18:48] VITALS: BP 138/61; PULSE 84; RESP 22; O2SAT 91
--- NOTE | 2020-09-15 18:57 | PM.IMHP ---
H&P: HPI History of Present Illness Date/Time: 09/15/20 18:57 Chief Complaint: uncontrolled pain and anxiety Narrative: 69-year-old alf resident was admitted due to mental status changes and possible gastrointestinal bleeding. She was found to be in septic shock with urinary tract infection. Treated initially with vancomycin and Levaquin and switched immediately to vancomycin and Primaxin. Urine grew E coli resistant to fluoroquinolones. She was also treated with pressors and fluid resuscitation. She was being fed through a feeding tube. She had deep presacral wound. She had been in alf for about 6 months and had not been improving. She had COVID-19 in June. She has been dependent for ADLs since 2010 stroke. She had another stroke in 2016. because of her failure to improve with optimal medical management her poor baseline functional status with palliative performance score of 30, her family opted for comfort care with inpatient hospice. Current PPS is 20. Review of Systems Review of Systems: ROS unobtainable: Yes unobtainable due to medical condition PMFSH Past Medical History Medical History Cancer of left breast Chronic constipation With fecal impaction in July 2020 at [facility] Chronic indwelling Dorman catheter Since January of 2020 due to chronic urinary retention with hydronephrosis Coronary artery disease CVA (cerebral vascular accident) 2010 and in 2015 with chronic left hemiparesis, dysphagia and expressive aphasia Depression Diabetic peripheral neuropathy Essential hypertension Hyperlipidemia Infection with multi-drug resistant microorganisms UTI Kidney stones Pneumonia due to COVID-19 virus July 10, 2020 Sacral decubitus ulcer, stage IV Type 2 diabetes mellitus Vitamin D deficiency Surgical History Surgical History Gastrostomy tube in place History of left mastectomy 2010 History of partial thyroidectomy 1993 S/P ureteral stent placement January 2020 right sided Status post abdominal aortic aneurysm repair Family History Family History Other Unknown family medical history Social History Social History Social History: The patient resides at [facility]. She had 4 children. Code status: Full code (state form on the chart) Smoking status: Unknown if ever smoked Alcohol intake: unknown Substance use: unknown Gender identity (if verbalized by the patient): Female Spiritual care concerns: No Meds Home Medications and Allergies Home Medications Medication Instructions Recorded Confirmed Type amlodipine [Norvasc] 5 mg FEEDING TUBE DAILY 08/11/20 09/13/20 History aspirin 81 mg FEEDING TUBE DAILY 08/11/20 09/13/20 History bisacodyl 10 mg RECTAL DAILY PRN 08/11/20 09/13/20 History clopidogrel [Plavix] 75 mg FEEDING TUBE DAILY 08/11/20 09/13/20 History insulin lispro See Rx Instructions .ROUTE .COMPLEX 08/11/20 09/13/20 History metoprolol tartrate [Lopressor] 25 mg FEEDING TUBE BID 08/11/20 09/13/20 History polyethylene glycol 3350 [Miralax] 17 g FEEDING TUBE DAILY 08/11/20 09/13/20 History sennosides [Senokot] 8.6 mg FEEDING TUBE BID 08/11/20 09/13/20 History simethicone 80 mg FEEDING TUBE BID 08/11/20 09/13/20 History alum-mag hydroxide-simeth [Maalox 30 ml FEEDING TUBE Q6H PRN 08/12/20 09/13/20 History Maximum Strength] magnesium oxide 400 mg FEEDING TUBE BID 08/12/20 09/13/20 History melatonin 3 mg FEEDING TUBE HS PRN 08/12/20 09/13/20 History famotidine 20 mg FEEDING TUBE Q12HR #60 tablet 08/25/20 09/13/20 Rx levothyroxine 25 mcg FEEDING TUBE DAILY@0630 #0 08/25/20 09/13/20 Rx tablet sodium hypochlorite [Dakin's 1 applic TOPICAL PRN PRN #0 ml 08/25/20 09/13/20 Rx Solution] ascorbic
[2020-09-15 19:56] VITALS: BP 123/56; PULSE 85; RESP 20; TEMP 36.1; O2SAT 96
[2020-09-16 08:00] VITALS: PULSE 97; RESP 18; O2SAT 95
[2020-09-16 09:30] VITALS: O2SAT 95
--- NOTE | 2020-09-16 12:28 | PM.IMPN ---
Progress Note: A&P Assessment and Plan (1) Palliative care by specialist: Code(s): Z51.5 - Encounter for palliative care Status: Acute Assessment and Plan: meets general inpatient criteria due to uncontrolled pain and anxiety related to her acute urinary tract infection, septic shock, acute respiratory failure with hypoxia 09/15 morphine 0.5 milligrams/hour and 2 mg every 2 hours as needed 09/16 increase morphine to 1mg/hr and 2mg q 2 hr prn lorazepam 0.5 mg IV every 4 hours as needed remainder of palliative regimen as ordered (2) Septic shock: Code(s): A41.9 - Sepsis, unspecified organism; R65.21 - Severe sepsis with septic shock Status: Acute (3) Emphysematous cystitis: Code(s): N30.80 - Other cystitis without hematuria Status: Acute (4) Acute hypernatremia: Code(s): E87.0 - Hyperosmolality and hypernatremia Status: Acute (5) Acute respiratory failure with hypoxia: Code(s): J96.01 - Acute respiratory failure with hypoxia Status: Acute (6) Chronic indwelling Dorman catheter: Code(s): Z97.8 - Presence of other specified devices Status: Acute (7) Type 2 diabetes mellitus with hyperosmolar hyperglycemic state (HHS): Code(s): E11.00 - Type 2 diabetes mellitus with hyperosmolarity without nonketotic hyperglycemic-hyperosmolar coma (NKHHC); E11.65 - Type 2 diabetes mellitus with hyperglycemia Status: Acute (8) Decubitus ulcer of sacral area: Onset Date: Unknown Qualifiers: Pressure injury stage: unstageable Qualified Code(s): L89.150 - Pressure ulcer of sacral region, unstageable Code(s): L89.159 - Pressure ulcer of sacral region, unspecified stage Status: Acute (9) Anemia: Code(s): D64.9 - Anemia, unspecified Status: Acute (10) Hypothyroidism: Code(s): E03.9 - Hypothyroidism, unspecified Status: Acute (11) Acute kidney injury: Code(s): N17.9 - Acute kidney failure, unspecified Status: Acute Subjective Date/time seen: 09/16/20 12:28 Interval history: Admitted for comfort care to inpatient hospice service 09/15 year due to sepsis and poor baseline functional status due to prior strokes and consequent dementia. 09/16: Comfortable all day until bathed by staff. Restless immediately afterward. No PO intake except sips of water. Review of Systems Review of Systems: ROS unobtainable: Yes unobtainable due to medical condition Exam Narrative: Exam Narrative: Skin with unstageable presacral pressure ulcer head normocephalic eyes with left ptosis sclera nonicteric pupils round reactive to light pharynx with mucosa pink and intact neck without JVD chest slightly coarse breath sounds with normal effort heart normal S1 and S2 with rate regular no audible murmur abdomen soft with bowel sounds present nontender no masses extremities no edema cyanosis or clubbing musculoskeletal with diffuse muscle wasting neurologic with mild left facial droop and left hemiplegia, speech dysarthric psychiatric alert to person, unclear whether place or time, does follow simple commands Objective Data Vital Signs Vital Signs: Vital Signs - 24 hr 09/15/20 15:37 09/15/20 15:51 09/15/20 18:42 Temperature Pulse Rate 83 82 82 Respiratory Rate 28 H 24 H 24 H Blood Pressure 136/65 Pulse Oximetry 95 93 93 09/15/20 18:48 09/15/20 19:56 09/16/20 09:30 Temperature 96.9 F L Pulse Rate 84 85 Respiratory Rate 22 H 20 Blood Pressure 138/61 123/56 L Pulse Oximetry 91 96 95 Meds/Results Medications: Active Medications Generic Name Dose Route Start Last Admin Trade Name Freq PRN Reason Stop Dose Admin Artificial Tears 0 drop 09/15/20 15:43 Artificial Tears Op Soln 15 Ml Bottle EACH EYE Q12HR PRN Dry Eye(s) Bisacodyl 10 mg 09/15/20 15:40 Bisacodyl 10 Mg Suppository RECTAL DAILY PRN Constipation Glycopyrrolate 0.1 mg
[2020-09-16] MEDS: LORazepam INJ (*CRX) 2 MG/ML VIAL 0.5 MG IV PUSH (12:34)
[2020-09-16 14:00] VITALS: BP 136/59; PULSE 97; RESP 18; TEMP 36.2; O2SAT 95
[2020-09-16] MEDS: MORPHINE SULFATE INJ (*CRX) 50 MG in SODIUM CHLORIDE 0.9% IV 95 ML IV CONT (14:55)
[2020-09-16 20:00] VITALS: BP 144/69; PULSE 97; RESP 10; TEMP 37; O2SAT 95; O2SAT 97
[2020-09-17] MEDS: LORazepam INJ (*CRX) 2 MG/ML VIAL 0.5 MG IV PUSH ×2 (05:35→17:35)
[2020-09-17 08:00] VITALS: PULSE 97; RESP 10; O2SAT 97
--- NOTE | 2020-09-17 12:23 | PM.IMPN ---
Progress Note: A&P Assessment and Plan (1) Palliative care by specialist: Code(s): Z51.5 - Encounter for palliative care Status: Acute Assessment and Plan: meets general inpatient criteria due to uncontrolled pain and anxiety related to her acute urinary tract infection, septic shock, acute respiratory failure with hypoxia 09/15 morphine 0.5 milligrams/hour and 2 mg every 2 hours as needed 09/16 increase morphine to 1mg/hr and 2mg q 2 hr prn lorazepam 0.5 mg IV every 4 hours as needed remainder of palliative regimen as ordered (2) Septic shock: Code(s): A41.9 - Sepsis, unspecified organism; R65.21 - Severe sepsis with septic shock Status: Acute (3) Emphysematous cystitis: Code(s): N30.80 - Other cystitis without hematuria Status: Acute (4) Acute hypernatremia: Code(s): E87.0 - Hyperosmolality and hypernatremia Status: Acute (5) Acute respiratory failure with hypoxia: Code(s): J96.01 - Acute respiratory failure with hypoxia Status: Acute (6) Chronic indwelling Dorman catheter: Code(s): Z97.8 - Presence of other specified devices Status: Acute (7) Type 2 diabetes mellitus with hyperosmolar hyperglycemic state (HHS): Code(s): E11.00 - Type 2 diabetes mellitus with hyperosmolarity without nonketotic hyperglycemic-hyperosmolar coma (NKHHC); E11.65 - Type 2 diabetes mellitus with hyperglycemia Status: Acute (8) Decubitus ulcer of sacral area: Onset Date: Unknown Qualifiers: Pressure injury stage: unstageable Qualified Code(s): L89.150 - Pressure ulcer of sacral region, unstageable Code(s): L89.159 - Pressure ulcer of sacral region, unspecified stage Status: Acute (9) Anemia: Code(s): D64.9 - Anemia, unspecified Status: Acute (10) Hypothyroidism: Code(s): E03.9 - Hypothyroidism, unspecified Status: Acute (11) Acute kidney injury: Code(s): N17.9 - Acute kidney failure, unspecified Status: Acute Subjective Date/time seen: 09/17/20 12:23 Interval history: Admitted for comfort care to inpatient hospice service 09/15 year due to sepsis and poor baseline functional status due to prior strokes and consequent dementia. 09/17: Remains intermittently restless inspite of continuous narcotic infusion. No PO intake except sips of water. Review of Systems Review of Systems: ROS unobtainable: Yes unobtainable due to medical condition Exam Narrative: Exam Narrative: Skin with unstageable presacral pressure ulcer head normocephalic eyes with left ptosis sclera nonicteric pupils round reactive to light pharynx with mucosa pink and intact neck without JVD chest slightly coarse breath sounds with normal effort heart normal S1 and S2 with rate regular no audible murmur abdomen soft with bowel sounds present nontender no masses extremities no edema cyanosis or clubbing musculoskeletal with diffuse muscle wasting neurologic with mild left facial droop and left hemiplegia, speech dysarthric psychiatric alert to person, unclear whether place or time, does follow simple commands Objective Data Vital Signs Vital Signs: Vital Signs - 24 hr 09/16/20 14:00 09/16/20 20:00 09/17/20 08:00 Temperature 97.2 F L 98.6 F Pulse Rate 97 97 97 Respiratory Rate 18 10 L 10 L Blood Pressure 136/59 L 144/69 H Pulse Oximetry 95 97 97 Intake/Output Intake/Output: Intake & Output 09/14/20 09/15/20 09/16/20 09/17/20 23:59 23:59 23:59 23:59 Output Total 2500 Balance -2500 Meds/Results Medications: Active Medications Generic Name Dose Route Start Last Admin Trade Name Freq PRN Reason Stop Dose Admin Artificial Tears 0 drop 09/15/20 15:43 Artificial Tears Op Soln 15 Ml Bottle EACH EYE Q12HR PRN Dry Eye(s) Bisacodyl 10 mg 09/15/20 15:40 Bisacodyl 10 Mg Suppository RECTAL DAILY PRN Constipation Glycopyrrolate 0.1 mg 0
[2020-09-17] MEDS: SOD HYPOCHLORITE 1/4 STRENGTH 473 ML 1 APPLIC TOPICAL (13:29)
[2020-09-17] MEDS: MORPHINE SULFATE INJ (*CRX) 50 MG in SODIUM CHLORIDE 0.9% IV 95 ML IV CONT (13:48)
[2020-09-17 14:30] VITALS: BP 140/71; PULSE 97; RESP 16; TEMP 36.2; O2SAT 94
[2020-09-17 22:00] VITALS: BP 137/75; PULSE 105; RESP 10; TEMP 37; O2SAT 93
[2020-09-18] MEDS: LORazepam INJ (*CRX) 2 MG/ML VIAL 0.5 MG IV PUSH (05:44)
[2020-09-18 08:00] VITALS: PULSE 105; RESP 10; O2SAT 93
[2020-09-18] MEDS: SOD HYPOCHLORITE 1/4 STRENGTH 473 ML 1 APPLIC TOPICAL (10:27)
[2020-09-18] MEDS: MORPHINE SULFATE INJ (*CRX) 50 MG in SODIUM CHLORIDE 0.9% IV 95 ML IV CONT (13:38)
[2020-09-18 14:00] VITALS: BP 147/70; PULSE 107; RESP 12; TEMP 37.4; O2SAT 92
--- NOTE | 2020-09-18 16:39 | PM.IMPN ---
Progress Note: A&P Assessment and Plan (1) Palliative care by specialist: Code(s): Z51.5 - Encounter for palliative care Status: Acute Assessment and Plan: meets general inpatient criteria due to uncontrolled pain and anxiety related to her acute urinary tract infection, septic shock, acute respiratory failure with hypoxia 09/15 morphine 0.5 milligrams/hour and 2 mg every 2 hours as needed 09/16 increase morphine to 1mg/hr and 2mg q 2 hr prn lorazepam 0.5 mg IV every 4 hours as needed remainder of palliative regimen as ordered (2) Septic shock: Code(s): A41.9 - Sepsis, unspecified organism; R65.21 - Severe sepsis with septic shock Status: Acute (3) Emphysematous cystitis: Code(s): N30.80 - Other cystitis without hematuria Status: Acute (4) Acute hypernatremia: Code(s): E87.0 - Hyperosmolality and hypernatremia Status: Acute (5) Acute respiratory failure with hypoxia: Code(s): J96.01 - Acute respiratory failure with hypoxia Status: Acute (6) Chronic indwelling Dorman catheter: Code(s): Z97.8 - Presence of other specified devices Status: Acute (7) Type 2 diabetes mellitus with hyperosmolar hyperglycemic state (HHS): Code(s): E11.00 - Type 2 diabetes mellitus with hyperosmolarity without nonketotic hyperglycemic-hyperosmolar coma (NKHHC); E11.65 - Type 2 diabetes mellitus with hyperglycemia Status: Acute (8) Decubitus ulcer of sacral area: Onset Date: Unknown Qualifiers: Pressure injury stage: unstageable Qualified Code(s): L89.150 - Pressure ulcer of sacral region, unstageable Code(s): L89.159 - Pressure ulcer of sacral region, unspecified stage Status: Acute (9) Anemia: Code(s): D64.9 - Anemia, unspecified Status: Acute (10) Hypothyroidism: Code(s): E03.9 - Hypothyroidism, unspecified Status: Acute (11) Acute kidney injury: Code(s): N17.9 - Acute kidney failure, unspecified Status: Acute Subjective Date/time seen: 09/18/20 16:39 Interval history: Admitted for comfort care to inpatient hospice service 09/15 year due to sepsis and poor baseline functional status due to prior strokes and consequent dementia. 09/18: Comfortable today. Remains on continuous IV narcotic. Review of Systems Review of Systems: ROS unobtainable: Yes unobtainable due to medical condition Exam Narrative: Exam Narrative: Skin with unstageable presacral pressure ulcer head normocephalic eyes with left ptosis sclera nonicteric pupils round reactive to light pharynx with mucosa pink and intact neck without JVD chest slightly coarse breath sounds with normal effort heart normal S1 and S2 with rate regular no audible murmur abdomen soft with bowel sounds present nontender no masses extremities no edema cyanosis or clubbing musculoskeletal with diffuse muscle wasting neurologic with mild left facial droop and left hemiplegia, speech dysarthric psychiatric alert to person, unclear whether place or time, does follow simple commands Objective Data Vital Signs Vital Signs: Vital Signs - 24 hr 09/17/20 22:00 09/18/20 08:00 09/18/20 14:00 Temperature 98.6 F 99.4 F Pulse Rate 105 H 105 H 107 H Respiratory Rate 10 L 10 L 12 Blood Pressure 137/75 147/70 H Pulse Oximetry 93 93 92 Intake/Output Intake/Output: Intake & Output 09/15/20 09/16/20 09/17/20 09/18/20 23:59 23:59 23:59 23:59 Intake Total 46 46 Output Total 2500 600 Balance -2500 -554 46 Meds/Results Medications: Active Medications Generic Name Dose Route Start Last Admin Trade Name Freq PRN Reason Stop Dose Admin Artificial Tears 0 drop 09/15/20 15:43 Artificial Tears Op Soln 15 Ml Bottle EACH EYE Q12HR PRN Dry Eye(s) Bisacodyl 10 mg 09/15/20 15:40 Bisacodyl 10 Mg Suppository RECTAL DAILY PRN Constipation Glycopyrrolate 0.1 mg 09/15/20 15:41
[2020-09-18 20:00] VITALS: PULSE 105; RESP 16; O2SAT 95
[2020-09-18 20:41] VITALS: BP 157/74; PULSE 105; RESP 16; TEMP 36.8; O2SAT 95
[2020-09-19 10:00] VITALS: PULSE 105; RESP 16; O2SAT 95
[2020-09-19] MEDS: SOD HYPOCHLORITE 1/4 STRENGTH 473 ML 1 APPLIC TOPICAL (11:42)
[2020-09-19 14:00] VITALS: BP 159/74; PULSE 114; RESP 16; TEMP 37.4; O2SAT 94
[2020-09-19] MEDS: MORPHINE SULFATE INJ (*CRX) 50 MG in SODIUM CHLORIDE 0.9% IV 95 ML IV CONT (14:30)
--- NOTE | 2020-09-19 17:37 | PM.IMPN ---
Progress Note: A&P Assessment and Plan (1) Palliative care by specialist: Code(s): Z51.5 - Encounter for palliative care Status: Acute Assessment and Plan: meets general inpatient criteria due to uncontrolled pain and anxiety related to her acute urinary tract infection, septic shock, acute respiratory failure with hypoxia 09/15 morphine 0.5 milligrams/hour and 2 mg every 2 hours as needed 09/16 increased morphine to 1mg/hr and 2mg q 2 hr prn lorazepam 0.5 mg IV every 4 hours as needed remainder of palliative regimen as ordered (2) Septic shock: Code(s): A41.9 - Sepsis, unspecified organism; R65.21 - Severe sepsis with septic shock Status: Acute (3) Emphysematous cystitis: Code(s): N30.80 - Other cystitis without hematuria Status: Acute (4) Acute hypernatremia: Code(s): E87.0 - Hyperosmolality and hypernatremia Status: Acute (5) Acute respiratory failure with hypoxia: Code(s): J96.01 - Acute respiratory failure with hypoxia Status: Acute (6) Chronic indwelling Dorman catheter: Code(s): Z97.8 - Presence of other specified devices Status: Acute (7) Type 2 diabetes mellitus with hyperosmolar hyperglycemic state (HHS): Code(s): E11.00 - Type 2 diabetes mellitus with hyperosmolarity without nonketotic hyperglycemic-hyperosmolar coma (NKHHC); E11.65 - Type 2 diabetes mellitus with hyperglycemia Status: Acute (8) Decubitus ulcer of sacral area: Onset Date: Unknown Qualifiers: Pressure injury stage: unstageable Qualified Code(s): L89.150 - Pressure ulcer of sacral region, unstageable Code(s): L89.159 - Pressure ulcer of sacral region, unspecified stage Status: Acute (9) Anemia: Code(s): D64.9 - Anemia, unspecified Status: Acute (10) Hypothyroidism: Code(s): E03.9 - Hypothyroidism, unspecified Status: Acute (11) Acute kidney injury: Code(s): N17.9 - Acute kidney failure, unspecified Status: Acute Subjective Date/time seen: 09/19/20 17:37 Interval history: Admitted for comfort care to inpatient hospice service 09/15 year due to sepsis and poor baseline functional status due to prior strokes and consequent dementia. 09/19: Comfortable today. Remains on continuous IV narcotic. Review of Systems Review of Systems: ROS unobtainable: Yes unobtainable due to medical condition Exam Narrative: Exam Narrative: Skin with unstageable presacral pressure ulcer head normocephalic eyes with left ptosis sclera nonicteric pupils round reactive to light pharynx with mucosa pink and intact neck without JVD chest slightly coarse breath sounds with normal effort heart normal S1 and S2 with rate regular no audible murmur abdomen soft with bowel sounds present nontender no masses extremities no edema cyanosis or clubbing musculoskeletal with diffuse muscle wasting neurologic with mild left facial droop and left hemiplegia, speech dysarthric psychiatric alert to person, unclear whether place or time, does follow simple commands Objective Data Vital Signs Vital Signs: Vital Signs - 24 hr 09/18/20 20:00 09/18/20 20:41 09/19/20 10:00 Temperature 98.3 F Pulse Rate 105 H 105 H 105 H Respiratory Rate 16 16 16 Blood Pressure 157/74 H Pulse Oximetry 95 95 95 09/19/20 14:00 Temperature 99.4 F Pulse Rate 114 H Respiratory Rate 16 Blood Pressure 159/74 H Pulse Oximetry 94 Intake/Output Intake/Output: Intake & Output 09/16/20 09/17/20 09/18/20 09/19/20 23:59 23:59 23:59 23:59 Intake Total 46 46 100 Output Total 2500 600 350 Balance -2500 -554 -304 100 Meds/Results Medications: Active Medications Generic Name Dose Route Start Last Admin Trade Name Freq PRN Reason Stop Dose Admin Artificial Tears 0 drop 09/15/20 15:43 Artificial Tears Op Soln 15 Ml Bottle EACH EYE Q12HR PRN Dry Eye(s) Bisacodyl 10 mg 09/15/20 15:40
[2020-09-19 22:00] VITALS: BP 135/72; PULSE 110; RESP 20; TEMP 37.2; O2SAT 92
[2020-09-19] MEDS: MORPHINE SULFATE (*CRX) 2 MG/ML INJ IV PUSH (22:01)
[2020-09-20 10:59] VITALS: PULSE 110; RESP 20; O2SAT 92
[2020-09-20] MEDS: SOD HYPOCHLORITE 1/4 STRENGTH 473 ML 1 APPLIC TOPICAL (12:43)
[2020-09-20 14:00] VITALS: BP 120/62; PULSE 107; RESP 12; TEMP 37; O2SAT 95
[2020-09-20] MEDS: MORPHINE SULFATE INJ (*CRX) 50 MG in SODIUM CHLORIDE 0.9% IV 95 ML IV CONT (14:06)
--- NOTE | 2020-09-20 17:13 | PM.IMPN ---
Progress Note: A&P Assessment and Plan (1) Palliative care by specialist: Code(s): Z51.5 - Encounter for palliative care Status: Acute Assessment and Plan: meets general inpatient criteria due to uncontrolled pain and anxiety related to her acute urinary tract infection, septic shock, acute respiratory failure with hypoxia 09/15 morphine 0.5 milligrams/hour and 2 mg every 2 hours as needed 09/16 increased morphine to 1mg/hr and 2mg q 2 hr prn lorazepam 0.5 mg IV every 4 hours as needed remainder of palliative regimen as ordered (2) Septic shock: Code(s): A41.9 - Sepsis, unspecified organism; R65.21 - Severe sepsis with septic shock Status: Acute (3) Emphysematous cystitis: Code(s): N30.80 - Other cystitis without hematuria Status: Acute (4) Acute hypernatremia: Code(s): E87.0 - Hyperosmolality and hypernatremia Status: Acute (5) Acute respiratory failure with hypoxia: Code(s): J96.01 - Acute respiratory failure with hypoxia Status: Acute (6) Chronic indwelling Dorman catheter: Code(s): Z97.8 - Presence of other specified devices Status: Acute (7) Type 2 diabetes mellitus with hyperosmolar hyperglycemic state (HHS): Code(s): E11.00 - Type 2 diabetes mellitus with hyperosmolarity without nonketotic hyperglycemic-hyperosmolar coma (NKHHC); E11.65 - Type 2 diabetes mellitus with hyperglycemia Status: Acute (8) Decubitus ulcer of sacral area: Onset Date: Unknown Qualifiers: Pressure injury stage: unstageable Qualified Code(s): L89.150 - Pressure ulcer of sacral region, unstageable Code(s): L89.159 - Pressure ulcer of sacral region, unspecified stage Status: Acute (9) Anemia: Code(s): D64.9 - Anemia, unspecified Status: Acute (10) Hypothyroidism: Code(s): E03.9 - Hypothyroidism, unspecified Status: Acute (11) Acute kidney injury: Code(s): N17.9 - Acute kidney failure, unspecified Status: Acute Subjective Date/time seen: 09/20/20 17:13 Interval history: Admitted for comfort care to inpatient hospice service 09/15 year due to sepsis and poor baseline functional status due to prior strokes and consequent dementia. 09/20: Comfortable today. Remains on continuous IV narcotic. Review of Systems Review of Systems: ROS unobtainable: Yes unobtainable due to medical condition Exam Narrative: Exam Narrative: Skin with unstageable presacral pressure ulcer head normocephalic eyes with left ptosis sclera nonicteric pupils round reactive to light pharynx with mucosa pink and intact neck without JVD chest slightly coarse breath sounds with normal effort heart normal S1 and S2 with rate regular no audible murmur abdomen soft with bowel sounds present nontender no masses extremities no edema cyanosis or clubbing musculoskeletal with diffuse muscle wasting neurologic with mild left facial droop and left hemiplegia, speech dysarthric psychiatric alert to person, unclear whether place or time, does follow simple commands Objective Data Vital Signs Vital Signs: Vital Signs - 24 hr 09/19/20 22:00 09/20/20 10:59 09/20/20 14:00 Temperature 99.0 F 98.6 F Pulse Rate 110 H 110 H 107 H Respiratory Rate 20 20 12 Blood Pressure 135/72 120/62 Pulse Oximetry 92 92 95 Intake/Output Intake/Output: Intake & Output 09/17/20 09/18/20 09/19/20 09/20/20 23:59 23:59 23:59 23:59 Intake Total 46 46 100 100 Output Total 600 350 725 50 [id number] -[phone] -287 50 Meds/Results Medications: Active Medications Generic Name Dose Route Start Last Admin Trade Name Freq PRN Reason Stop Dose Admin Artificial Tears 0 drop 09/15/20 15:43 Artificial Tears Op Soln 15 Ml Bottle EACH EYE Q12HR PRN Dry Eye(s) Bisacodyl 10 mg 09/15/20 15:40 Bisacodyl 10 Mg Suppository RECTAL DAILY PRN Constipation Glycopyrrolate 0.1 mg 09/15/20 15
[2020-09-20 22:00] VITALS: BP 118/71; PULSE 106; RESP 12; TEMP 37.2; O2SAT 91
--- NOTE | 2020-09-21 06:59 | PC.NURSE ---
All assessment and meds passed from 189909/20/2020 by FRED Mills were passed by Sofia Hair.
[2020-09-21 08:00] VITALS: BP 132/75; PULSE 98; RESP 10; TEMP 37.2; O2SAT 90; O2SAT 92
[2020-09-21] MEDS: SOD HYPOCHLORITE 1/4 STRENGTH 473 ML 1 APPLIC TOPICAL (09:07)
[2020-09-21] MEDS: MORPHINE SULFATE INJ (*CRX) 50 MG in SODIUM CHLORIDE 0.9% IV 95 ML IV CONT (12:47)
--- NOTE | 2020-09-21 16:49 | PM.IMPN ---
Progress Note: A&P Assessment and Plan (1) Palliative care by specialist: Code(s): Z51.5 - Encounter for palliative care Status: Acute Assessment and Plan: meets general inpatient criteria due to uncontrolled pain and anxiety related to her acute urinary tract infection, septic shock, acute respiratory failure with hypoxia 09/15 morphine 0.5 milligrams/hour and 2 mg every 2 hours as needed 09/16 increased morphine to 1mg/hr and 2mg q 2 hr prn lorazepam 0.5 mg IV every 4 hours as needed remainder of palliative regimen as ordered (2) Septic shock: Code(s): A41.9 - Sepsis, unspecified organism; R65.21 - Severe sepsis with septic shock Status: Acute (3) Emphysematous cystitis: Code(s): N30.80 - Other cystitis without hematuria Status: Acute (4) Acute hypernatremia: Code(s): E87.0 - Hyperosmolality and hypernatremia Status: Acute (5) Acute respiratory failure with hypoxia: Code(s): J96.01 - Acute respiratory failure with hypoxia Status: Acute (6) Chronic indwelling Dorman catheter: Code(s): Z97.8 - Presence of other specified devices Status: Acute (7) Type 2 diabetes mellitus with hyperosmolar hyperglycemic state (HHS): Code(s): E11.00 - Type 2 diabetes mellitus with hyperosmolarity without nonketotic hyperglycemic-hyperosmolar coma (NKHHC); E11.65 - Type 2 diabetes mellitus with hyperglycemia Status: Acute (8) Decubitus ulcer of sacral area: Onset Date: Unknown Qualifiers: Pressure injury stage: unstageable Qualified Code(s): L89.150 - Pressure ulcer of sacral region, unstageable Code(s): L89.159 - Pressure ulcer of sacral region, unspecified stage Status: Acute (9) Anemia: Code(s): D64.9 - Anemia, unspecified Status: Acute (10) Hypothyroidism: Code(s): E03.9 - Hypothyroidism, unspecified Status: Acute (11) Acute kidney injury: Code(s): N17.9 - Acute kidney failure, unspecified Status: Acute Subjective Date/time seen: 09/21/20 16:49 Interval history: Admitted for comfort care to inpatient hospice service 09/15 year due to sepsis and poor baseline functional status due to prior strokes and consequent dementia. 09/21: Comfortable today. Remains on continuous IV narcotic. Review of Systems Review of Systems: ROS unobtainable: Yes unobtainable due to medical condition Exam Narrative: Exam Narrative: Skin with unstageable presacral pressure ulcer head normocephalic eyes with left ptosis sclera nonicteric pupils round reactive to light pharynx with mucosa pink and intact neck without JVD chest slightly coarse breath sounds with normal effort heart normal S1 and S2 with rate regular no audible murmur abdomen soft with bowel sounds present nontender no masses extremities no edema cyanosis or clubbing musculoskeletal with diffuse muscle wasting neurologic with mild left facial droop and left hemiplegia, speech dysarthric psychiatric sleeping soundly, minimal response to verbal or tactile stimuli Objective Data Vital Signs Vital Signs: Vital Signs - 24 hr 09/20/20 22:00 09/21/20 08:00 Temperature 99.0 F 99.0 F Pulse Rate 106 H 98 Respiratory Rate 12 10 L Blood Pressure 118/71 132/75 Pulse Oximetry 91 90 Intake/Output Intake/Output: Intake & Output 09/18/20 09/19/20 09/20/20 09/21/20 23:59 23:59 23:59 23:59 Intake Total 46 100 100 100 Output Total 350 725 750 Balance -515 -908 -041 100 Meds/Results Medications: Active Medications Generic Name Dose Route Start Last Admin Trade Name Freq PRN Reason Stop Dose Admin Artificial Tears 0 drop 09/15/20 15:43 Artificial Tears Op Soln 15 Ml Bottle EACH EYE Q12HR PRN Dry Eye(s) Bisacodyl 10 mg 09/15/20 15:40 Bisacodyl 10 Mg Suppository RECTAL DAILY PRN Constipation Glycopyrrolate 0.1 mg 09/15/20 15:41 Glycopyrrolate Inj (*Sp) 0.2 Mg/Ml V
[2020-09-21 20:00] VITALS: BP 126/58; PULSE 107; RESP 12; TEMP 37.1; O2SAT 100
[2020-09-22 07:40] VITALS: O2SAT 90
[2020-09-22 08:00] VITALS: BP 113/68; PULSE 109; RESP 10; TEMP 37.6; O2SAT 94
[2020-09-22] MEDS: SOD HYPOCHLORITE 1/4 STRENGTH 473 ML 1 APPLIC TOPICAL (08:40)
[2020-09-22] MEDS: MORPHINE SULFATE INJ (*CRX) 50 MG in SODIUM CHLORIDE 0.9% IV 95 ML IV CONT (12:51)
[2020-09-22 20:03] VITALS: PULSE 111; O2SAT 98
--- NOTE | 2020-09-22 20:11 | PM.IMPN ---
Progress Note: A&P Assessment and Plan (1) Palliative care by specialist: Code(s): Z51.5 - Encounter for palliative care Status: Acute Assessment and Plan: meets general inpatient criteria due to uncontrolled pain and anxiety related to her acute urinary tract infection, septic shock, acute respiratory failure with hypoxia 09/15 morphine 0.5 milligrams/hour and 2 mg every 2 hours as needed 09/16 increased morphine to 1mg/hr and 2mg q 2 hr prn lorazepam 0.5 mg IV every 4 hours as needed remainder of palliative regimen as ordered family unable to provide care at home and stability for transfer is tenuous (2) Septic shock: Code(s): A41.9 - Sepsis, unspecified organism; R65.21 - Severe sepsis with septic shock Status: Acute (3) Emphysematous cystitis: Code(s): N30.80 - Other cystitis without hematuria Status: Acute (4) Acute hypernatremia: Code(s): E87.0 - Hyperosmolality and hypernatremia Status: Acute (5) Acute respiratory failure with hypoxia: Code(s): J96.01 - Acute respiratory failure with hypoxia Status: Acute (6) Chronic indwelling Dorman catheter: Code(s): Z97.8 - Presence of other specified devices Status: Acute (7) Type 2 diabetes mellitus with hyperosmolar hyperglycemic state (HHS): Code(s): E11.00 - Type 2 diabetes mellitus with hyperosmolarity without nonketotic hyperglycemic-hyperosmolar coma (NKHHC); E11.65 - Type 2 diabetes mellitus with hyperglycemia Status: Acute (8) Decubitus ulcer of sacral area: Onset Date: Unknown Qualifiers: Pressure injury stage: unstageable Qualified Code(s): L89.150 - Pressure ulcer of sacral region, unstageable Code(s): L89.159 - Pressure ulcer of sacral region, unspecified stage Status: Acute (9) Anemia: Code(s): D64.9 - Anemia, unspecified Status: Acute (10) Hypothyroidism: Code(s): E03.9 - Hypothyroidism, unspecified Status: Acute (11) Acute kidney injury: Code(s): N17.9 - Acute kidney failure, unspecified Status: Acute Subjective Date/time seen: 09/22/20 20:11 Interval history: Admitted for comfort care to inpatient hospice service 3/26 year due to sepsis and poor baseline functional status due to prior strokes and consequent dementia. 09/22: Comfortable today. Remains on continuous IV narcotic. Review of Systems Review of Systems: ROS unobtainable: Yes unobtainable due to medical condition Exam Narrative: Exam Narrative: Skin with unstageable presacral pressure ulcer head normocephalic eyes with left ptosis sclera nonicteric pupils round reactive to light pharynx with mucosa pink and intact neck without JVD chest slightly coarse breath sounds with normal effort heart normal S1 and S2 with rate regular no audible murmur abdomen soft with bowel sounds present nontender no masses extremities no edema cyanosis or clubbing musculoskeletal with diffuse muscle wasting neurologic with mild left facial droop and left hemiplegia, speech dysarthric psychiatric sleeping soundly, minimal response to verbal or tactile stimuli Objective Data Vital Signs Vital Signs: Vital Signs - 24 hr 09/22/20 07:40 09/22/20 08:00 09/22/20 20:03 Temperature 99.6 F Pulse Rate 109 H 111 H Respiratory Rate 10 L Blood Pressure 113/68 Pulse Oximetry 90 94 98 Intake/Output Intake/Output: Intake & Output 09/19/20 09/20/20 09/21/20 09/22/20 23:59 23:59 23:59 23:59 Intake Total 100 100 100 100 Output Total 725 750 250 Balance -625 -650 100 -150 Meds/Results Medications: Active Medications Generic Name Dose Route Start Last Admin Trade Name Freq PRN Reason Stop Dose Admin Artificial Tears 0 drop 09/15/20 15:43 Artificial Tears Op Soln 15 Ml Bottle EACH EYE Q12HR PRN Dry Eye(s) Bisacodyl 10 mg 09/15/20 15:40 Bisacodyl 10 Mg Suppository RECTAL DAILY PRN Cons
[2020-09-22 21:45] VITALS: BP 125/62; PULSE 110; RESP 16; TEMP 36.4; O2SAT 90
[2020-09-23 07:50] VITALS: PULSE 107; RESP 20; O2SAT 88
[2020-09-23] MEDS: SOD HYPOCHLORITE 1/4 STRENGTH 473 ML 1 APPLIC TOPICAL (08:04)
[2020-09-23] MEDS: MORPHINE SULFATE INJ (*CRX) 50 MG in SODIUM CHLORIDE 0.9% IV 95 ML IV CONT (12:42)
--- NOTE | 2020-09-23 14:02 | PM.IMPN ---
Progress Note: A&P Assessment and Plan (1) Palliative care by specialist: Code(s): Z51.5 - Encounter for palliative care Status: Acute Assessment and Plan: meets general inpatient criteria due to uncontrolled pain and anxiety related to her acute urinary tract infection, septic shock, acute respiratory failure with hypoxia 09/15 morphine 0.5 milligrams/hour and 2 mg every 2 hours as needed 09/16 increased morphine to 1mg/hr and 2mg q 2 hr prn lorazepam 0.5 mg IV every 4 hours as needed remainder of palliative regimen as ordered family unable to provide care at home and stability for transfer is tenuous (2) Septic shock: Code(s): A41.9 - Sepsis, unspecified organism; R65.21 - Severe sepsis with septic shock Status: Acute (3) Emphysematous cystitis: Code(s): N30.80 - Other cystitis without hematuria Status: Acute (4) Acute hypernatremia: Code(s): E87.0 - Hyperosmolality and hypernatremia Status: Acute (5) Acute respiratory failure with hypoxia: Code(s): J96.01 - Acute respiratory failure with hypoxia Status: Acute (6) Chronic indwelling Dorman catheter: Code(s): Z97.8 - Presence of other specified devices Status: Acute (7) Type 2 diabetes mellitus with hyperosmolar hyperglycemic state (HHS): Code(s): E11.00 - Type 2 diabetes mellitus with hyperosmolarity without nonketotic hyperglycemic-hyperosmolar coma (NKHHC); E11.65 - Type 2 diabetes mellitus with hyperglycemia Status: Acute (8) Decubitus ulcer of sacral area: Onset Date: Unknown Qualifiers: Pressure injury stage: unstageable Qualified Code(s): L89.150 - Pressure ulcer of sacral region, unstageable Code(s): L89.159 - Pressure ulcer of sacral region, unspecified stage Status: Acute (9) Anemia: Code(s): D64.9 - Anemia, unspecified Status: Acute (10) Hypothyroidism: Code(s): E03.9 - Hypothyroidism, unspecified Status: Acute (11) Acute kidney injury: Code(s): N17.9 - Acute kidney failure, unspecified Status: Acute Subjective Date/time seen: 09/23/20 14:02 Interval history: Admitted for comfort care to inpatient hospice service 3/26 year due to sepsis and poor baseline functional status due to prior strokes and consequent dementia. 09/23: Comfortable today. Remains on continuous IV narcotic. Review of Systems Review of Systems: ROS unobtainable: Yes unobtainable due to medical condition Exam Narrative: Exam Narrative: Skin with unstageable presacral pressure ulcer head normocephalic eyes with left ptosis sclera nonicteric pupils round reactive to light pharynx with mucosa pink and intact neck without JVD chest slightly coarse breath sounds with normal effort heart normal S1 and S2 with rate regular no audible murmur abdomen soft with bowel sounds present nontender no masses extremities no edema cyanosis or clubbing musculoskeletal with diffuse muscle wasting neurologic with mild left facial droop and left hemiplegia, speech dysarthric psychiatric sleeping soundly, minimal response to verbal or tactile stimuli Objective Data Vital Signs Vital Signs: Vital Signs - 24 hr 09/22/20 20:03 09/22/20 21:45 09/23/20 07:50 Temperature 97.5 F L Pulse Rate 111 H 110 H 107 H Respiratory Rate 16 20 Blood Pressure 125/62 Pulse Oximetry 98 90 88 L Intake/Output Intake/Output: Intake & Output 09/20/20 09/21/20 09/22/20 09/23/20 23:59 23:59 23:59 23:59 Intake Total 100 100 100 63 Output Total 750 250 Balance -650 100 -150 63 Meds/Results Medications: Active Medications Generic Name Dose Route Start Last Admin Trade Name Freq PRN Reason Stop Dose Admin Artificial Tears 0 drop 09/15/20 15:43 Artificial Tears Op Soln 15 Ml Bottle EACH EYE Q12HR PRN Dry Eye(s) Bisacodyl 10 mg 09/15/20 15:40 Bisacodyl 10 Mg Suppository RECTAL DAILY PRN C
[2020-09-23 15:29] VITALS: BP 134/62; PULSE 108; RESP 20; TEMP 36.9; O2SAT 92
[2020-09-23 17:48] VITALS: PULSE 108; RESP 20; O2SAT 92
[2020-09-23 20:00] VITALS: BP 124/56; PULSE 107; RESP 20; TEMP 37.2; O2SAT 91
[2020-09-23] MEDS: LORazepam INJ (*CRX) 2 MG/ML VIAL 0.5 MG IV PUSH (20:08)
[2020-09-24] MEDS: SOD HYPOCHLORITE 1/4 STRENGTH 473 ML 1 APPLIC TOPICAL (10:51)
[2020-09-24] MEDS: MORPHINE SULFATE INJ (*CRX) 50 MG in SODIUM CHLORIDE 0.9% IV 95 ML IV CONT (13:13)
[2020-09-24 13:15] VITALS: TEMP 38.2
[2020-09-24] MEDS: ACETAMINOPHEN 650 MG SUPPOSITORY RECTAL (13:15)
[2020-09-24 14:00] VITALS: BP 117/58; PULSE 110; RESP 12; TEMP 37.2; O2SAT 90
[2020-09-24 14:15] VITALS: TEMP 37.2
[2020-09-24 19:57] VITALS: BP 117/55; PULSE 102; RESP 16; TEMP 36.7; O2SAT 94
--- NOTE | 2020-09-24 21:06 | PM.IMPN ---
Progress Note: A&P Assessment and Plan (1) Palliative care by specialist: Code(s): Z51.5 - Encounter for palliative care Status: Acute Assessment and Plan: meets general inpatient criteria due to uncontrolled pain and anxiety related to her acute urinary tract infection, septic shock, acute respiratory failure with hypoxia 09/15 morphine 0.5 milligrams/hour and 2 mg every 2 hours as needed 09/16 increased morphine to 1mg/hr and 2mg q 2 hr prn lorazepam 0.5 mg IV every 4 hours as needed remainder of palliative regimen as ordered family unable to provide care at home and stability for transfer is tenuous (2) Septic shock: Code(s): A41.9 - Sepsis, unspecified organism; R65.21 - Severe sepsis with septic shock Status: Acute (3) Emphysematous cystitis: Code(s): N30.80 - Other cystitis without hematuria Status: Acute (4) Acute hypernatremia: Code(s): E87.0 - Hyperosmolality and hypernatremia Status: Acute (5) Acute respiratory failure with hypoxia: Code(s): J96.01 - Acute respiratory failure with hypoxia Status: Acute (6) Chronic indwelling Dorman catheter: Code(s): Z97.8 - Presence of other specified devices Status: Acute (7) Type 2 diabetes mellitus with hyperosmolar hyperglycemic state (HHS): Code(s): E11.00 - Type 2 diabetes mellitus with hyperosmolarity without nonketotic hyperglycemic-hyperosmolar coma (NKHHC); E11.65 - Type 2 diabetes mellitus with hyperglycemia Status: Acute (8) Decubitus ulcer of sacral area: Onset Date: Unknown Qualifiers: Pressure injury stage: unstageable Qualified Code(s): L89.150 - Pressure ulcer of sacral region, unstageable Code(s): L89.159 - Pressure ulcer of sacral region, unspecified stage Status: Acute (9) Anemia: Code(s): D64.9 - Anemia, unspecified Status: Acute (10) Hypothyroidism: Code(s): E03.9 - Hypothyroidism, unspecified Status: Acute (11) Acute kidney injury: Code(s): N17.9 - Acute kidney failure, unspecified Status: Acute Subjective Date/time seen: 09/24/20 21:06 Interval history: Admitted for comfort care to inpatient hospice service 3/26 year due to sepsis and poor baseline functional status due to prior strokes and consequent dementia. 09/24: Comfortable today but with low grade fever. Remains on continuous IV narcotic. Review of Systems Review of Systems: ROS unobtainable: Yes unobtainable due to medical condition Exam Narrative: Exam Narrative: Skin with unstageable presacral pressure ulcer head normocephalic eyes with left ptosis sclera nonicteric pupils round reactive to light pharynx with mucosa pink and intact neck without JVD chest slightly coarse breath sounds with normal effort heart normal S1 and S2 with rate regular no audible murmur abdomen soft with bowel sounds present nontender no masses extremities no edema cyanosis or clubbing musculoskeletal with diffuse muscle wasting neurologic with mild left facial droop and left hemiplegia, speech dysarthric psychiatric sleeping soundly, minimal response to verbal or tactile stimuli Objective Data Vital Signs Vital Signs: Vital Signs - 24 hr 09/24/20 13:15 09/24/20 14:00 09/24/20 14:15 Temperature 100.7 F H 99.0 F 99 F Pulse Rate 110 H Respiratory Rate 12 Blood Pressure 117/58 L Pulse Oximetry 90 09/24/20 19:57 Temperature 98.0 F Pulse Rate 102 H Respiratory Rate 16 Blood Pressure 117/55 L Pulse Oximetry 94 Intake/Output Intake/Output: Intake & Output 09/21/20 09/22/20 09/23/20 09/24/20 23:59 23:59 23:59 23:59 Intake Total 100 100 63 45 Output Total 250 300 450 Balance 100 -564 -237 -405 Meds/Results Medications: Active Medications Generic Name Dose Route Start Last Admin Trade Name Freq PRN Reason Stop Dose Admin Acetaminophen 650 mg 09/24/20 12:58 09/24/20 13:15 Acetaminophen 650
[2020-09-24 22:00] VITALS: PULSE 101; O2SAT 97
[2020-09-24 22:15] VITALS: PULSE 100; O2SAT 96
[2020-09-25 07:30] VITALS: O2SAT 90
[2020-09-25 08:00] VITALS: BP 103/58; PULSE 108; RESP 8; TEMP 37.4; O2SAT 86
[2020-09-25] MEDS: SOD HYPOCHLORITE 1/4 STRENGTH 473 ML 1 APPLIC TOPICAL (08:20)
[2020-09-25 10:13] VITALS: O2SAT 91
[2020-09-25 10:35] VITALS: O2SAT 91
[2020-09-25] MEDS: MORPHINE SULFATE INJ (*CRX) 50 MG in SODIUM CHLORIDE 0.9% IV 95 ML IV CONT (13:54)
--- NOTE | 2020-09-25 16:49 | PM.IMPN ---
Progress Note: A&P Assessment and Plan (1) Palliative care by specialist: Code(s): Z51.5 - Encounter for palliative care Status: Acute Assessment and Plan: meets general inpatient criteria due to uncontrolled pain and anxiety related to her acute urinary tract infection, septic shock, acute respiratory failure with hypoxia 09/15 morphine 0.5 milligrams/hour and 2 mg every 2 hours as needed 09/16 increased morphine to 1mg/hr and 2mg q 2 hr prn lorazepam 0.5 mg IV every 4 hours as needed remainder of palliative regimen as ordered family unable to provide care at home and stability for transfer is tenuous (2) Septic shock: Code(s): A41.9 - Sepsis, unspecified organism; R65.21 - Severe sepsis with septic shock Status: Acute (3) Emphysematous cystitis: Code(s): N30.80 - Other cystitis without hematuria Status: Acute (4) Acute hypernatremia: Code(s): E87.0 - Hyperosmolality and hypernatremia Status: Acute (5) Acute respiratory failure with hypoxia: Code(s): J96.01 - Acute respiratory failure with hypoxia Status: Acute (6) Chronic indwelling Dorman catheter: Code(s): Z97.8 - Presence of other specified devices Status: Acute (7) Type 2 diabetes mellitus with hyperosmolar hyperglycemic state (HHS): Code(s): E11.00 - Type 2 diabetes mellitus with hyperosmolarity without nonketotic hyperglycemic-hyperosmolar coma (NKHHC); E11.65 - Type 2 diabetes mellitus with hyperglycemia Status: Acute (8) Decubitus ulcer of sacral area: Onset Date: Unknown Qualifiers: Pressure injury stage: unstageable Qualified Code(s): L89.150 - Pressure ulcer of sacral region, unstageable Code(s): L89.159 - Pressure ulcer of sacral region, unspecified stage Status: Acute (9) Anemia: Code(s): D64.9 - Anemia, unspecified Status: Acute (10) Hypothyroidism: Code(s): E03.9 - Hypothyroidism, unspecified Status: Acute (11) Acute kidney injury: Code(s): N17.9 - Acute kidney failure, unspecified Status: Acute Subjective Date/time seen: 09/25/20 16:49 Interval history: Admitted for comfort care to inpatient hospice service 3/26 year due to sepsis and poor baseline functional status due to prior strokes and consequent dementia. 09/25: Comfortable today but continues with low grade fever. Remains on continuous IV narcotic. Review of Systems Review of Systems: ROS unobtainable: Yes unobtainable due to medical condition Exam Narrative: Exam Narrative: Skin with unstageable presacral pressure ulcer head normocephalic eyes with left ptosis sclera nonicteric pupils round reactive to light pharynx with mucosa pink and intact neck without JVD chest slightly coarse breath sounds with normal effort heart normal S1 and S2 with rate regular no audible murmur abdomen soft with bowel sounds present nontender no masses extremities no edema cyanosis or clubbing musculoskeletal with diffuse muscle wasting neurologic with mild left facial droop and left hemiplegia, speech dysarthric psychiatric sleeping soundly, minimal response to verbal or tactile stimuli Objective Data Vital Signs Vital Signs: Vital Signs - 24 hr 09/24/20 19:57 09/24/20 22:00 09/24/20 22:15 Temperature 98.0 F Pulse Rate 102 H 101 H 100 Respiratory Rate 16 Blood Pressure 117/55 L Pulse Oximetry 94 97 96 09/25/20 07:30 09/25/20 08:00 09/25/20 10:35 Temperature 99.3 F Pulse Rate 108 H Respiratory Rate 8 L Blood Pressure 103/58 L Pulse Oximetry 90 86 L 91 Intake/Output Intake/Output: Intake & Output 09/22/20 09/23/20 09/24/20 09/25/20 23:59 23:59 23:59 23:59 Intake Total 100 63 45 100 Output Total 250 300 450 Balance -150 237 -405 100 Meds/Results Medications: Active Medications Generic Name Dose Route Start Last Admin Trade Name Freq PRN Reason Stop Dose Admin Acetaminophen 6
[2020-09-25 20:00] VITALS: O2SAT 91
[2020-09-25 20:14] VITALS: BP 100/59; PULSE 107; RESP 6; TEMP 36.5; O2SAT 93
[2020-09-26 08:35] VITALS: BP 103/53; PULSE 99; RESP 7; TEMP 37.4; O2SAT 90
[2020-09-26] MEDS: SOD HYPOCHLORITE 1/4 STRENGTH 473 ML 1 APPLIC TOPICAL (10:22)
[2020-09-26] MEDS: MORPHINE SULFATE INJ (*CRX) 50 MG in SODIUM CHLORIDE 0.9% IV 95 ML IV CONT (12:46)
[2020-09-26 13:58] VITALS: BP 88/43; PULSE 102; RESP 8; TEMP 37.9; O2SAT 91
[2020-09-26] MEDS: ACETAMINOPHEN 650 MG SUPPOSITORY RECTAL (13:58)
[2020-09-26 14:58] VITALS: TEMP 37.6
[2020-09-26 17:12] VITALS: BP 97/50; PULSE 100; RESP 8; TEMP 37.6; O2SAT 90
--- NOTE | 2020-09-26 18:16 | PM.IMPN ---
Progress Note: A&P Assessment and Plan (1) Palliative care by specialist: Code(s): Z51.5 - Encounter for palliative care Status: Acute Assessment and Plan: meets general inpatient criteria due to uncontrolled pain and anxiety related to her acute urinary tract infection, septic shock, acute respiratory failure with hypoxia 09/15 morphine 0.5 milligrams/hour and 2 mg every 2 hours as needed 09/16 increased morphine to 1mg/hr and 2mg q 2 hr prn lorazepam 0.5 mg IV every 4 hours as needed remainder of palliative regimen as ordered family unable to provide care at home and stability for transfer is tenuous (2) Septic shock: Code(s): A41.9 - Sepsis, unspecified organism; R65.21 - Severe sepsis with septic shock Status: Acute (3) Emphysematous cystitis: Code(s): N30.80 - Other cystitis without hematuria Status: Acute (4) Acute hypernatremia: Code(s): E87.0 - Hyperosmolality and hypernatremia Status: Acute (5) Acute respiratory failure with hypoxia: Code(s): J96.01 - Acute respiratory failure with hypoxia Status: Acute (6) Chronic indwelling Dorman catheter: Code(s): Z97.8 - Presence of other specified devices Status: Acute (7) Type 2 diabetes mellitus with hyperosmolar hyperglycemic state (HHS): Code(s): E11.00 - Type 2 diabetes mellitus with hyperosmolarity without nonketotic hyperglycemic-hyperosmolar coma (NKHHC); E11.65 - Type 2 diabetes mellitus with hyperglycemia Status: Acute (8) Decubitus ulcer of sacral area: Onset Date: Unknown Qualifiers: Pressure injury stage: unstageable Qualified Code(s): L89.150 - Pressure ulcer of sacral region, unstageable Code(s): L89.159 - Pressure ulcer of sacral region, unspecified stage Status: Acute (9) Anemia: Code(s): D64.9 - Anemia, unspecified Status: Acute (10) Hypothyroidism: Code(s): E03.9 - Hypothyroidism, unspecified Status: Acute (11) Acute kidney injury: Code(s): N17.9 - Acute kidney failure, unspecified Status: Acute Subjective Date/time seen: 09/26/20 18:16 Interval history: Admitted for comfort care to inpatient hospice service 3/26 year due to sepsis and poor baseline functional status due to prior strokes and consequent dementia. 09/26: Comfortable today but continues with low grade fever. Remains on continuous IV narcotic. Review of Systems Review of Systems: ROS unobtainable: Yes unobtainable due to medical condition Exam Narrative: Exam Narrative: Skin with unstageable presacral pressure ulcer head normocephalic eyes with left ptosis sclera nonicteric pupils round reactive to light pharynx with mucosa pink and intact neck without JVD chest slightly coarse breath sounds with normal effort heart normal S1 and S2 with rate regular no audible murmur abdomen soft with bowel sounds present nontender no masses extremities no edema cyanosis or clubbing musculoskeletal with diffuse muscle wasting neurologic with mild left facial droop and left hemiplegia, speech dysarthric psychiatric sleeping soundly, minimal response to verbal or tactile stimuli Objective Data Vital Signs Vital Signs: Vital Signs - 24 hr 09/25/20 20:00 09/25/20 20:14 09/26/20 08:35 Temperature 97.7 F 99.4 F Pulse Rate 107 H 99 Respiratory Rate 6 L 7 L Blood Pressure 100/59 L 103/53 L Pulse Oximetry 91 93 90 09/26/20 13:58 09/26/20 14:58 09/26/20 17:12 Temperature 100.3 F H 99.7 F H 99.7 F H Pulse Rate 102 H 100 Respiratory Rate 8 L 8 L Blood Pressure 88/43 L 97/50 L Pulse Oximetry 91 90 Intake/Output Intake/Output: Intake & Output 09/23/20 09/24/20 09/25/20 09/26/20 23:59 23:59 23:59 23:59 Intake Total 63 45 100 70 Output Total 300 450 175 Balance -237 -405 -75 70 Meds/Results Medications: Active Medications Generic Name Dose Route Start Last Admin Trade Name Jose Guadalupeq PRN Reas
[2020-09-26 19:57] VITALS: PULSE 100; RESP 8; O2SAT 90
[2020-09-26 20:00] VITALS: BP 82/43; PULSE 99; RESP 8; TEMP 38; O2SAT 94
[2020-09-27 08:00] VITALS: BP 86/43; PULSE 103; RESP 6; TEMP 36.7; O2SAT 93
--- NOTE | 2020-09-27 08:54 | PM.IMPN ---
Progress Note: A&P Assessment and Plan (1) Palliative care by specialist: Code(s): Z51.5 - Encounter for palliative care Status: Acute Assessment and Plan: meets general inpatient criteria due to uncontrolled pain and anxiety related to her acute urinary tract infection, septic shock, acute respiratory failure with hypoxia 09/15 morphine 0.5 milligrams/hour and 2 mg every 2 hours as needed 09/16 increased morphine to 1mg/hr and 2mg q 2 hr prn lorazepam 0.5 mg IV every 4 hours as needed remainder of palliative regimen as ordered family unable to provide care at home and stability for transfer is tenuous (2) Septic shock: Code(s): A41.9 - Sepsis, unspecified organism; R65.21 - Severe sepsis with septic shock Status: Acute (3) Emphysematous cystitis: Code(s): N30.80 - Other cystitis without hematuria Status: Acute (4) Acute hypernatremia: Code(s): E87.0 - Hyperosmolality and hypernatremia Status: Acute (5) Acute respiratory failure with hypoxia: Code(s): J96.01 - Acute respiratory failure with hypoxia Status: Acute (6) Chronic indwelling Dorman catheter: Code(s): Z97.8 - Presence of other specified devices Status: Acute (7) Type 2 diabetes mellitus with hyperosmolar hyperglycemic state (HHS): Code(s): E11.00 - Type 2 diabetes mellitus with hyperosmolarity without nonketotic hyperglycemic-hyperosmolar coma (NKHHC); E11.65 - Type 2 diabetes mellitus with hyperglycemia Status: Acute (8) Decubitus ulcer of sacral area: Onset Date: Unknown Qualifiers: Pressure injury stage: unstageable Qualified Code(s): L89.150 - Pressure ulcer of sacral region, unstageable Code(s): L89.159 - Pressure ulcer of sacral region, unspecified stage Status: Acute (9) Anemia: Code(s): D64.9 - Anemia, unspecified Status: Acute (10) Hypothyroidism: Code(s): E03.9 - Hypothyroidism, unspecified Status: Acute (11) Acute kidney injury: Code(s): N17.9 - Acute kidney failure, unspecified Status: Acute Subjective Date/time seen: 09/27/20 08:54 Interval history: Admitted for comfort care to inpatient hospice service 3/26 year due to sepsis and poor baseline functional status due to prior strokes and consequent dementia. 09/27: Comfortable today but continues with low grade fever. Remains on continuous IV narcotic. Review of Systems Review of Systems: ROS unobtainable: Yes unobtainable due to medical condition Exam Narrative: Exam Narrative: Skin with unstageable presacral pressure ulcer head normocephalic eyes with left ptosis sclera nonicteric pupils round reactive to light pharynx with mucosa pink and intact neck without JVD chest slightly coarse breath sounds with normal effort heart normal S1 and S2 with rate regular no audible murmur abdomen soft with bowel sounds present nontender no masses extremities no edema cyanosis or clubbing musculoskeletal with diffuse muscle wasting neurologic with mild left facial droop and left hemiplegia, speech dysarthric psychiatric sleeping soundly, minimal response to verbal or tactile stimuli Objective Data Vital Signs Vital Signs: Vital Signs - 24 hr 09/26/20 13:58 09/26/20 14:58 09/26/20 17:12 Temperature 100.3 F H 99.7 F H 99.7 F H Pulse Rate 102 H 100 Respiratory Rate 8 L 8 L Blood Pressure 88/43 L 97/50 L Pulse Oximetry 91 90 09/26/20 19:57 09/26/20 20:00 09/27/20 08:00 Temperature 100.4 F H 98.0 F Pulse Rate 100 99 103 H Respiratory Rate 8 L 8 L 6 L Blood Pressure 82/43 L 86/43 L Pulse Oximetry 90 94 93 Intake/Output Intake/Output: Intake & Output 09/24/20 09/25/20 09/26/20 09/27/20 23:59 23:59 23:59 23:59 Intake Total 45 100 70 Output Total 450 175 Balance -405 -75 70 Meds/Results Medications: Active Medications Generic Name Dose Route Start Last Admin Trade Name Freq PRN Reason
[2020-09-27] MEDS: SOD HYPOCHLORITE 1/4 STRENGTH 473 ML 1 APPLIC TOPICAL (09:00)
[2020-09-27] MEDS: LORazepam INJ (*CRX) 2 MG/ML VIAL 0.5 MG IV PUSH (14:04)
[2020-09-27] MEDS: MORPHINE SULFATE INJ (*CRX) 50 MG in SODIUM CHLORIDE 0.9% IV 95 ML IV CONT (14:22)
[2020-09-27 20:00] VITALS: PULSE 103; RESP 6; O2SAT 93
[2020-09-27 21:34] VITALS: TEMP 37.6
[2020-09-28] MEDS: SOD HYPOCHLORITE 1/4 STRENGTH 473 ML 1 APPLIC TOPICAL (09:48)
[2020-09-28] MEDS: GLYCOPYRROLATE INJ (*SP) 0.2 MG/ML VIAL 0.1 MG IV PUSH (10:45)
[2020-09-28 11:14] VITALS: BP 50/32; PULSE 102; RESP 8; TEMP 37
--- NOTE | 2020-10-03 12:15 | P.DN_ITS ---
Discharge Sum: Prov Provider Primary care physician: [employer] TRI[employer] NURSE PHYSICIAN Admitting provider: Thaddeus Mercado MD Discharge Sum: Diag Contributing Factors (1) Palliative care by specialist: (2) Septic shock: (3) Emphysematous cystitis: (4) Acute hypernatremia: (5) Acute respiratory failure with hypoxia: (6) Chronic indwelling Dorman catheter: (7) Type 2 diabetes mellitus with hyperosmolar hyperglycemic state (HHS): (8) Decubitus ulcer of sacral area: (9) Anemia: (10) Hypothyroidism: (11) Acute kidney injury: Discharge Sum: Summary Date and Time Date of admission: 09/15/20 14:30 Summary Details: Patient was admitted to inpatient hospice service for palliative care. Medications were titrated to comfort. She peacefully after several days on continuous IV narcotic therapy. Additional Data Attending physician: Thaddeus Mercado MD
== END 2020-09-28 11:50 | disposition expired | DRG 951 ==
LOC: ANH3MEDSUR 15:15 → ANHICU 15:28 → ANH3MEDSUR 09-18 16:42 → ANHICU 10-03 07:37
PROVIDERS: Admitting Provider Internal Medicine; Visit Provider Internal Medicine
DX: Z51.5 Encounter for palliative care (principal); R65.21 Severe sepsis with septic shock; J96.01 Acute respiratory failure with hypoxia; E11.00 Type 2 diabetes mellitus with hyperosmolarity without nonketotic hyperglycemic-hyperosmolar coma (NKHHC); A41.9 Sepsis, unspecified organism; N17.9 Acute kidney failure, unspecified; E87.0 Hyperosmolality and hypernatremia; N30.80 Other cystitis without hematuria; Z97.8 Presence of other specified devices; E11.65 Type 2 diabetes mellitus with hyperglycemia; L89.150 Pressure ulcer of sacral region, unstageable; D64.9 Anemia, unspecified; E03.9 Hypothyroidism, unspecified; F03.90 Unspecified dementia, unspecified severity, without behavioral disturbance, psychotic disturbance, mood disturbance, and anxiety; Z86.73 Personal history of transient ischemic attack (TIA), and cerebral infarction without residual deficits
CPT/HCPCS: A9270; J2060; J2270